=== PATIENT | male | born 1950 | race Caucasian/White ===

== ENCOUNTER → 2020-12-04 12:13 | Outpatient (CLI) | payer MEDICARE, SELFPAY ==
--- NOTE | 2020-12-04 13:21 | DI.MRI.S_ITS ---
PROCEDURE: MR LUMBAR SPINE WO CON INDICATIONS: Low back pain, unspecified TECHNIQUE: Noncontrast sagittal T1 spin echo and T2 fast echo, sagittal STIR, axial T1 and T2 fast spin echo through the lumbar spine. In cases with scoliosis, additional coronal T2 fast spin echo may be performed. COMPARISON: None. FINDINGS: Image quality: Excellent. Alignment and Curvature: There is normal bony alignment. Bones: Postsurgical changes compatible with L3-L4 and L4-L5 discectomy interbody fusion noted. Postsurgical changes compatible with L4 laminectomy. Marrow is of normal overall signal. Chronic appearing L1 compression fracture noted which results in approximately 40% loss of normal anterior vertebral body height. No acute vertebral body compression fractures. Spinal Cord: Conus medullaris terminates at the L1 level. Visualized cord demonstrates normal signal and size. Paraspinous Soft Tissues: No paravertebral masses. T12-L1: Loss of disc signal. Mild bilateral facet hypertrophy. Mild narrowing of the central canal. Mild bilateral neural foraminal narrowing. No neural compression. Fissure noted in the left posterior annulus. L1-L2: Loss of disc signal. Mild, diffuse disc bulge. Mild bilateral facet hypertrophy. Mild narrowing of the central canal. Mild bilateral neural foraminal narrowing. No neural compression. L2-L3: Loss of disc signal. Mild bilateral facet hypertrophy. Mild narrowing of the central canal. Mild bilateral neural foraminal narrowing. No neural compression. L3-L4: Status post fusion. Moderate, diffuse posterior disc bulge. Mild bilateral facet hypertrophy. Mild to moderate narrowing of the central canal. Moderate bilateral neural foraminal narrowing. No neural compression. L4-L5: Status post fusion. Kxkc-nx-bsvoijlx bilateral facet hypertrophy. No central stenosis. Moderate bilateral neural foraminal narrowing. No neural compression. L5-S1: Loss of disc signal. Mild to moderate diffuse disc bulge. Mild right and iane-fc-cfnuhzav left facet hypertrophy. Mild narrowing of the central canal. Mild right and severe left neural foraminal narrowing with compression of the exiting left L5 nerve root. IMPRESSION: 1. Status post L3-L4 and L4-L5 fusion. Status post L4 laminectomy. 2. Multilevel degenerative disc disease. 3. Multilevel facet arthropathy. 4. No severe central canal narrowing. Five. Severe left L5-S1 neural foraminal narrowing with compression of the exiting left L5 nerve root. Please correlate with clinical data. Dictated by: Sasha Liu MD, PhD on 12/04/2020 at 14:59 Approved by: Sasha Liu MD, PhD on 12/04/2020 at 15:48
== END ==
PROVIDERS: PCP Family Medicine; Referring Provider Physical Medicine & Rehabilitation; Visit Provider Physical Medicine & Rehabilitation
DX: M54.50 Low back pain, unspecified (principal); Z98.1 Arthrodesis status; M51.36 Other intervertebral disc degeneration, lumbar region; M48.061 Spinal stenosis, lumbar region without neurogenic claudication; M51.35 Other intervertebral disc degeneration, thoracolumbar region; M48.05 Spinal stenosis, thoracolumbar region; M51.37 Other intervertebral disc degeneration, lumbosacral region; M48.07 Spinal stenosis, lumbosacral region; M47.816 Spondylosis without myelopathy or radiculopathy, lumbar region; M47.815 Spondylosis without myelopathy or radiculopathy, thoracolumbar region; M47.817 Spondylosis without myelopathy or radiculopathy, lumbosacral region
CPT/HCPCS: 72148

== ENCOUNTER → 2021-10-02 13:10 | Outpatient (CLI) | payer MEDICARE, SELFPAY ==
--- NOTE | 2021-10-02 13:13 | DI.CT.S_ITS ---
PROCEDURE: CT LUMBAR SPINE WO CON INDICATIONS: Spinal stenosis, lumbar region TECHNIQUE: Noncontrast 3 mm thick sections acquired from the T12 level to the sacrum. Sagittal and coronal reformats were constructed. For radiation dose reduction, the following was used: automated exposure control. COMPARISON: [facility], MR, MR LUMBAR SPINE WO CON, 12/04/2020, 12:39. FINDINGS: Image quality: Excellent. Bones: Postsurgical changes compatible with L3-L4 and L4-L5 fusion are stable compared to December 04, 2020. There is normal bony alignment. Chronic appearing L1 compression fracture is stable compared to December 04, 2020. No acute vertebral body compression fractures. No suspicious lytic or blastic bony lesions. No pars defects. T12-L1: Disc height is normal. Mild bilateral facet hypertrophy. Mild narrowing of the central canal. Mild bilateral neural foraminal narrowing. No neural compression. L1-L2: Disc height is normal. Mild, diffuse disc bulge. Mild bilateral facet hypertrophy. Mild narrowing of the central canal. Mild bilateral neural foraminal narrowing. No neural compression. L2-L3: Disc height is normal. Mild, diffuse disc bulge. Mild bilateral facet hypertrophy. Mild narrowing of the central canal. Mild bilateral neural foraminal narrowing. No neural compression. L3-L4: Status post fusion. Moderate, diffuse disc bulge. Ceut-pu-adjkiqfl bilateral facet hypertrophy. Mild to moderate narrowing of the central canal. Moderate bilateral neural foraminal narrowing. No neural compression. L4-L5: Status post fusion. Burs-br-dtpbmvxv bilateral facet hypertrophy. No central stenosis. Moderate bilateral neural foraminal narrowing. No neural compression. L5-S1: Disc height is normal. Mild to moderate diffuse disc bulge. Hgzl-ao-iurbqwuk bilateral facet hypertrophy. Mild narrowing of the central canal. Mild right and severe left neural foraminal narrowing with compression of the exiting left L5 nerve root. Soft tissues: No retroperitoneal masses or hematomas. Visualized aorta is normal in caliber. Incidental note made of calcified gallstones in the visualized gallbladder. Colon anastomotic sutures identified at the rectosigmoid junction. IMPRESSION: 1. No significant change compared to December 04, 2020. 2. L3-L4 and L4-L5 fusion. 3. Multilevel degenerative disc disease. 4. Multilevel facet arthropathy. 5. No severe central canal narrowing. 6. Severe left L5-S1 neural foraminal narrowing with compression of the exiting left L5 nerve root. Dictated by: Sasha Liu MD, PhD on 10/03/2021 at 10:08 Approved by: Sasha Liu MD, PhD on 10/03/2021 at 10:14
== END ==
PROVIDERS: PCP Family Medicine; Referring Provider Orthopaedic Surgery Orthopaedic Surgery of the Spine; Visit Provider Orthopaedic Surgery Orthopaedic Surgery of the Spine
DX: M48.061 Spinal stenosis, lumbar region without neurogenic claudication (principal); M48.07 Spinal stenosis, lumbosacral region; M51.36 Other intervertebral disc degeneration, lumbar region; M51.37 Other intervertebral disc degeneration, lumbosacral region; M47.816 Spondylosis without myelopathy or radiculopathy, lumbar region; M47.817 Spondylosis without myelopathy or radiculopathy, lumbosacral region; Z98.1 Arthrodesis status
CPT/HCPCS: 72131

== ENCOUNTER → 2021-10-15 10:48 | Outpatient (CLI) | payer MEDICARE, SELFPAY ==
[2021-10-15 11:32] LABS: COVID19 -Nasal RAPID Negative (Negative)
== END ==
PROVIDERS: PCP Family Medicine; Referring Provider Orthopaedic Surgery Orthopaedic Surgery of the Spine; Visit Provider Orthopaedic Surgery Orthopaedic Surgery of the Spine
DX: Z20.822 Contact with and (suspected) exposure to COVID-19 (principal)
CPT/HCPCS: 87635; C9803

== ENCOUNTER 2021-10-18 13:37 | Observation (INO) | payer MEDICARE, SELFPAY ==
[2021-10-10 09:37] VITALS: BMI 25.0
[2021-10-17] VITALS (17 sets, daily range): BP systolic 107–158; BP diastolic 59–91; PULSE 56–96; RESP 12–20; TEMP 36.1–37; O2SAT 94–100; BMI 25.0
--- NOTE | 2021-10-17 | DI.RAD.S_ITS ---
PROCEDURE: XR LUMBAR SPINE 2-3V INDICATIONS: L5-S1 POSTERIOR FUSION TECHNIQUE: 2 intraoperative fluoroscopic views of the lumbar spine were acquired. COMPARISON: None. FINDINGS: Bones: 2 intraoperative views demonstrate posterior fixation and discectomy at L5-S1. IMPRESSION: Posterior fixation and discectomy at L5-S1. Dictated by: Puja Taylor M.D. on 10/17/2021 at 16:31 Approved by: Puja Taylor M.D. on 10/17/2021 at 16:31
[2021-10-17] MEDS: LACTATED RINGERS 1,000 ML 100 ML IV ×2 (11:45→16:09)
--- NOTE | 2021-10-17 12:14 | PM.PREOP ---
Pre-operative Note COVID-19 COVID-19 status: Negative Result date/Date tested (Pos, Neg/Pending): 10/16/21 Criteria for continued procedure: Expected advancement of disease process, Possibility delay results in more complex future surgery or treatment, Increased loss of function, Continuing or worsening of significant or severe pain, Deterioration of the patient's condition or overall health and Delay expected to result in less-positive ultimate med/surg outcome Interval Note History & Physical reviewed/Exam performed by Physician: Yes Changes to H&P: No
[2021-10-17] MEDS: ACETAMINOPHEN IV 1,000 MG/100 ML VIAL 400 MG IV (13:30)
[2021-10-17] MEDS: CEFAZOLIN 2 GM/100 ML PREMIX 100 ML IV ×2 (13:30→22:00)
--- NOTE | 2021-10-17 13:55 | SUR.OPER ---
Prone on spine table, head in foam head support, padded chest and pelvic supports, gel pad at knees, lower legs supported by pillows; nipples, genitalia and toes free of pressure, arms secured on foam padded arm boards at <90 degrees abduction. Tape over blanket at thigh secured to table. POSITION APPROVED BY SURGEON AND ANESTHESIA.
[2021-10-17] MEDS: BUPIVACAINE 0.25% (PF) 30 ML, EPINEPHrine 0.3 MG INJ (16:00)
[2021-10-17] MEDS: BUPIVACAINE LIPOSOME 266 MG/20 ML VIAL INJ (16:00)
--- NOTE | 2021-10-17 16:06 | PM.OP.1 ---
Operative Date/Time/Diagnoses Date of procedure: 10/17/21 Time of procedure: 13:30 Pre-op diagnosis: 1. L5-S1 spinal stenosis with radiculopathy 2. L5-S1 spondylosis with radiculopathy Post-op diagnosis: same Procedure & Clinicians Procedure: 1. L5-S1 Postero-lateral and posterior interbody fusion 2. L5-S1 interbody cage placement. 3. L5-S1 decompressive laminectomy with bilateral facetecomies 4. L5-S1 Posterior non-segmental instrumentation 5. [place] of bone marrow from iliac crest 6. Utilization of microsurgical technique and operating microscope 7. Utilization of robotic assisted navigation Same procedure as scheduled: Yes Indications: Patient has been having chronic back pain and worsening lumbar radiculopathy on the left side with weakness numbness and pain. Patient has a history of L3-4 L4-5 anterior fusion with progressively worsening lower back pain at the lumbar sacral junction as well as progressively worsening left-sided radiculopathy. Patient failed multiple conservative management with worsening pain weakness and numbness in his lower extremity. Patient has been having difficulty performing activity of daily living. After discussing risks benefits of treatment options, patient elected proceed with surgery. Surgeon: Eli Victoria Armed Guard: Jojo Rivers Click Yes if Unassisted: No Anesthesia Type: General Operative Notes Closure Type: primary Specimen(s): none sent Prosthetic devices, grafts, tissues, transplants, or devices: Globus CREO MIS screws, Rise cage Estimated Blood Loss (mL): 50 Blood products transfused: none Procedure in detail: Patient was seen in the preoperative area. Risks and benefits of the surgery was discussed with the patient. Informed consent was obtained from the patient and placed in the chart. Surgical site was marked. Patient was taken to the operative room. General anesthesia was administered. Prophylactic antibiotic was given to the patient less than 30 min before the incision was made. Patient was placed into a prone position on the Faraz table. Patient's back was then prepped and draped in the sterile fashion. Time-out was performed at this time. After patient was prepped and draped, patient's PSIS was palpated and marked bilaterally. Small 1 cm incision was made over the PSIS for placement of the reference probes. Two trocar was placed into the PSIS 1 on each side. The reference probe was attached to the trocar of the reference apparatus. At this time the C-arm imaging was used to confirm AP and lateral of L5-S1 vertebrae and merged the C-arm imaging using the [employer] robotic navigation system with the CT of the lumbar spine. After successful merging was completed and confirmed, skin marker was used to ramón out the skin incision using the [employer] robotic arm. Bilateral incision was made at this time. Pre templated trajectory was used and guided using the [employer] robotic navigation system for bilateral L5-S1 pedicle screw placement. This was done by using the robotic arm to guide the high-speed bur to make a cortical entry point. Next a drill was placed also using the robotic arm and guided using the navigation system drilling partially through bilateral L5, S1 pedicles. Next L5-S1 pedicle screws it was pre templated and measured was placed onto the power transport truck driver and inserted into the pedicles bilaterally. After all 4 screws were placed C-arm imaging was taken of both AP and lateral to confirm the placement. Excellent placement of the screws were confirmed and a matched precisely with the pre planned screw placement using the navigation system. MARs retractor was inserted using [employer] guidence. Globus MARS retractors was placed inside the incision and docked onto the L5 lamina. Using microsurgical technique and operating microscope, a L5 laminectomy and L5-S1 facetectomy was performed using a [place] rongeur. Patient was found have severe lateral recess and neural foramen stenosis which was fully decompressed after the laminectomy facetectomy. More than 75% of the facets were removed during the process of decompression rendering L5-S1 level grossly unstable and required a fusion procedure at the same time. The disc space at L5-S1 was identified, and a total diskectomy was performed at L5-S1 level. The endplates were decorticated using a rasp and shaver. The total diskectomy and decortication was performed at L5-S1 level in order to to accomplish a L5-S1 fusion. The local bone from the laminectomy and facetectomy was saved for local bone grafting. After the total diskectomy and decortication was completed, Trifecta bone graft material was combined with local bone that was harvested earlier. At this time, a separate skin is incision was made over the iliac crest. A Jamshidi needle was inserted into the iliac crest through a separate skin incision. 5 cc of bone marrow aspiration was obtained through the separate skin incision using a Jamshidi needle from the iliac crest. The bone marrow aspiration was combined with local bone and the Trifecta bone grafting material. The bone grafting material was placed into the L5-S1 interbody space along with a expandable cage. The cage was expanded to its maximum height using the torque limiting screwdriver. The disc preparation as well as the cage insertion were also performed under navigation guidance. After the cage was placed, AP and lateral C-arm imaging was taken to confirm placement of the cage and excellent position was confirmed. Globus MARS retractor was inserted and docked onto the L5-S1 posterolateral gutter on the right side. Using the power drill, posterior-lateral decortication was performed at L5-S1 level until bleeding cortical bone was identified. The remaining bone grafting material was placed into the L5-S1 posterior lateral gutter he order to accomplish posterolateral fusion at the L5-S1 level. At this time the tulips were attached to the L5-S1 pedicle screw shanks. After measuring the length of the rods, they were inserted into the tulips of the pedicle screws and locked in place using locking caps and torque limiting screwdriver bilaterally. Total 4 caps and 2 titanium rods was used in order to complete the posterior instrumentation construct. After all the hardware was placed, and confirmed with AP and lateral C-arm imaging, the wound was then irrigated with sterile normal saline and packed with Ray-Moses gauze for 3 min to accomplish hemostasis. After the gauze was removed the deep fascia was closed with #1 Vicryl suture. The subcutaneous layer was closed with 2-0 Vicryl. The skin was closed with skin verónica. Patient tolerated the procedure well. There were no complications. Neuro monitoring system was used to monitor patient's neurologic status throughout entire procedure. There was no disturbance of the neural monitoring signals throughout the case. Complications: none Post-operative Condition: stable Disposition: PACU Plan for aftercare: Admit to inpatient hospital
[2021-10-17] MEDS: HYDROMORPHONE 2 MG INJ IV ×4 (16:24→16:50)
[2021-10-17] MEDS: hydrOXYzine 50 MG/ML INJ IM (16:27)
[2021-10-17] MEDS: OXYCODONE IR 5 MG TABLET 10 MG PO ×2 (16:33→22:09)
[2021-10-17] MEDS: ONDANSETRON 4 MG/2 ML INJ IV (16:33)
--- NOTE | 2021-10-17 17:32 | PC.NURSE ---
Day shift: Pt in room from PACU at approx 1725. He is A&Ox4. CMS intact. Dressing (op-site) is CDI. VS WNL. RA 99%. Spouse in room for support. Reports pain 09/07. Oriented to room and call light. Tolerating SCD's. Will continue w/ post-op plan of care.
--- NOTE | 2021-10-17 18:13 | PC.NURSE ---
Day shift: Pt unable to void. Bladder scanned with approx 600mls per the scan. Pt asked if he would like a Rae placed at this time and he does not want a Rae placed at this time. Will continue to monitor this.
[2021-10-17] MEDS: SODIUM CHLORIDE 0.9% 1,000 ML 100 ML IV (18:21)
[2021-10-17] MEDS: HYDROMORPHONE 0.5 MG INJ IV (20:32)
[2021-10-17] MEDS: DOCUSATE 100 MG CAPSULE PO (21:59)
[2021-10-17] MEDS: SENNOSIDES 8.6 MG TABLET 17.2 MG PO (21:59)
[2021-10-17] MEDS: ACETAMINOPHEN 325 MG TABLET 650 MG PO (22:12)
[2021-10-17] MEDS: LIDOCAINE 2% (GLYDO) 6 ML GEL TOP (22:50)
[2021-10-18] MEDS: OXYCODONE/ACETAMINOPHEN 5/325 TABLET 1 TAB PO ×3 (01:45→21:16)
--- NOTE | 2021-10-18 02:14 | PC.NURSE ---
Addendum entered by Katia Castro R.N. 10/18/21 02:19: Patient unable to void, bladder scan result 700cc, patient agreeable to fried. Fried placed, 1100cc out. Original Note: Patient self-transferred to the bathroom, found by staff and educated on importance of calling for help to avoid injury.
[2021-10-18] MEDS: HYDROMORPHONE 0.5 MG INJ IV ×2 (04:21→07:04)
[2021-10-18] MEDS: SODIUM CHLORIDE 0.9% 1,000 ML 100 ML IV ×2 (04:22→18:27)
[2021-10-18 05:30] VITALS: BP 82/52; PULSE 83; RESP 17; O2SAT 93
[2021-10-18 05:43] VITALS: BP 85/47
[2021-10-18] MEDS: LEVOTHYROXINE 112 MCG TABLET PO (05:59)
[2021-10-18] MEDS: CEFAZOLIN 2 GM/100 ML PREMIX 100 ML IV (05:59)
[2021-10-18] MEDS: SODIUM CHLORIDE 0.9% 500 ML 1000 ML IV (06:33)
[2021-10-18] MEDS: OXYCODONE IR 5 MG TABLET 10 MG PO ×5 (07:43→23:10)
[2021-10-18] MEDS: hydrOXYzine pamoate 25 MG CAPSULE PO ×4 (07:43→23:11)
[2021-10-18 07:45] VITALS: BP 123/79; PULSE 75; RESP 16; TEMP 36.6; O2SAT 98
--- NOTE | 2021-10-18 08:48 | PM.PNPO.1 ---
Subjective Subjective Date Patient Seen: 10/18/21 Time Patient Seen: 08:48 Interval history: Pt sitting up in bed, eating breakfast. C/o pain in back, penis, and pelvis. He was suffering from urinary retention and had a fried catheter place last night; per RN, took 3 attempts. Per pt, h/o BPH and terazosin; he does not want to take terazosin again because 'it makes me swell.' He does not have a urologist. He did receive a fluid bolus last night d/t low BP. Has not been OOB since surgery. Exam Vital Signs (past 8 hours): - 10/18/21 05:30 10/18/21 05:43 10/18/21 07:45 Temperature 97.9 F Pulse Rate 83 75 Respiratory Rate 17 16 Blood Pressure 82/52 L 85/47 L 123/79 Pulse Oximetry 93 98 Oxygen Flow Rate 0 Oxygen Delivery Method Room Air Oxygen Flow Rate 0 Narrative Exam Narrative: 5/5 strength in hip flexors, quadriceps, hamstrings, DF, PF, EHL bilaterally. Sensation to light touch intact in BLE. Calves soft, compressible, nontender and without palpable cords or masses. Low back dressing placed intraoperatively has some bloody drainage on left side, otherwise intact. [facility] Medical History (Updated 10/18/21 @ 08:53 by Jojo Rivers PA-C) Anxiety BPH (benign prostatic hyperplasia) CAD (coronary artery disease) Colon cancer (2017) Depression Hearing impaired HLD (hyperlipidemia) HTN (hypertension) Hx of tongue cancer (2019) Hypothyroidism Kidney stone (~10/10/21) Kidney stones Lung cancer (2019) Lymph node cancer (2019) Neuropathy MARVIN (obstructive sleep apnea) Spinal stenosis Surgical History (Updated 10/18/21 @ 08:53 by Jojo Rivers PA-C) H/O vasectomy History of colon resection (2018) History of lobectomy of lung (2019) History of lumbar spinal fusion Hx of appendectomy (2016) Hx of laminectomy (2007) Hx of laminectomy Hx of laminectomy Hx of lithotripsy Hx of tonsillectomy S/P CABG x 5 (2006) Social History household members: significant other Smoking Status: Never smoker alcohol intake: former Assessment & Plan Post-op Assessment and plan (1) S/P lumbar fusion: Assessment and Plan narrative: PT today, plan for discharge in next 1-2 days with disposition per their recommendation. (2) Acute on chronic urinary retention: Assessment and Plan narrative: Continue fried cathter today. Will discuss discontinuing catheter and restarting terazosin with pt prior to discharge. Other option would be discharging with catheter and outpt referral to urology. (3) Hypotension: Assessment and Plan narrative: Will order second fluid bolus and continue IVF throughout today. Postoperative Procedures: Procedures Operation Date: 10/17/21 12:45 Actual Procedure Side Surgeon p L5-S1 TLIF -robot Eli Victoria MD Postoperative day: 1 Quality VTE Deep Vein Thrombosis/Pulmonary Embolism Present on Admission: No
--- NOTE | 2021-10-18 09:15 | OT.IP.EVAL ---
Current Diagnoses Hypotension, unspecified (10/17/21) Spinal stenosis, lumbar region without neurogenic claudication (10/17/21) Retention of urine, unspecified (10/17/21) Arthrodesis status (10/17/21) Surgery Performed Operation Date: 10/17/21 12:45 Actual Procedures p L5-S1 TLIF -[place] - Eli Victoria MD Past Medical History (Last Updated 10/10/21 @ 10:27 by Rosita Fernández, RN) Anxiety BPH (benign prostatic hyperplasia) CAD (coronary artery disease) Colon cancer (2017) Depression Hearing impaired HLD (hyperlipidemia) HTN (hypertension) Hx of tongue cancer (2019) Hypothyroidism Kidney stone (~10/10/21) Kidney stones Lung cancer (2018) Lymph node cancer (2019) Neuropathy MRAVIN (obstructive sleep apnea) Spinal stenosis Surgical History (Last Updated 10/10/21 @ 10:27 by Rosita Fernández RN) H/O vasectomy History of colon resection (2017) History of lobectomy of lung (2018) History of lumbar spinal fusion Hx of appendectomy (2016) Hx of laminectomy (2007) Hx of laminectomy Hx of laminectomy Hx of lithotripsy Hx of tonsillectomy S/P CABG x 5 (2006) Occupational Therapy Inpatient Evaluation/Re-Eval M1 PT/OT-IP Prior Functional Status Start: 10/18/21 10:27 Freq: NEEDED Status: Active Protocol: Document 10/18/21 09:15 [facility] (Rec: 10/18/21 10:46 [facility] [id number]) Medical Review Prior Functional Status Communication independent Mobility and Gait Pt states walked without a device and able to walk 1 mile however with stooped posture and pain. Activities of Daily Living and IADL's Increased time and pain with ADL and IADL needs. Social History Household Members significant other Living Arrangements 5th wheel Number of Floors (Floors) One Floor Number of Stairs To Enter/Railing? 4 steps with left rail. Home Environment High Toilet,Tub/Shower Home Equipment Grab Bars In Shower Additional Social History Comment Pt states his brother in law has a lot of equipment that he can borrow. M2 OT-IP Current Condition Start: 10/18/21 10:27 Freq: Status: Active Protocol: Document 10/18/21 09:15 [facility] (Rec: 10/18/21 10:46 [facility] [id number]) Occupational Therapy Current Condition Current Condition Evaluation Date 10/18/21 Treatment Diagnosis S/p L5-S1 TLIF Diagnosis Onset Date 10/17/21 Post Operative Precautions Lumbar Precautions Log Roll,No Twisting,Limit Bending,Lifting Restriction of 10 lbs,Gait Belt above Incisional Area M3 OT- IP Subjective and Pain Start: 10/18/21 10:27 Freq: Status: Active Protocol: Document 10/18/21 09:15 [facility] (Rec: 10/18/21 10:46 [facility] [id number]) OT- Subjective Occupational Therapy Visit Type Type Initial Evaluation Visit Start Time 08:33 Visit Stop Time 09:15 Total Visit Minutes 43 Occupational Therapy Visit Comments Patient Comments Pt agreed to get up for OT eval. Patient/Caregiver Goals TO go home OT Pain Assessment Pain When Pain Assessed At Rest Pain Present Pain Present Pain Reported Location Lower Back Intensity 5 Scale Used Numeric (0 - 10) M4 OT- IP ADL's Start: 10/18/21 10:27 Freq: Status: Active Protocol: Document 10/18/21 09:15 [facility] (Rec: 10/18/21 10:46 [facility] [id number]) OT HJP-Xfwf-Gralsns Comments OT Self-Feeding Comments NOt at meal time, no issued anticipated. OT ADL-Grooming General Evaluation Grooming Ability Independent Areas Needing Assistance Retrieving/Set-up of Grooming Items Comments OT Grooming Comments while seated OT ADL-Oral Care General Eval Oral Care Ability Independent Areas of Assistance Retrieving/Set-Up of Items Comments Oral Care Comments Pt seated for oral care due to low BP. Educated if standing for oral care needs best to just hinge at his hips or spit in to a cup to best follow his back precautions. OT ADL-Dressing General Eval Lower Body Dressing Ability Moderate Assistance Areas Needing Assistance Socks Comments OT Dressing Comments Pt able to doff his socks comfortably while seated, but unable to don his socks. Able to show and have pt practice use of sock aid and tool grinding technician. OT ADL-Toileting General Evaluation Toileting Ability Total Assistance Comments OT Toileting Comments Rae in place. Suggested pt use urinal at night. OT ADL-Bathing Comments OT Bathing Comments Not performed due to low BP. Pt will benefit from assist and a shower chair at home to use. In addition hand held shower spray will be beneficial for the pt to use. M5 OT- IP IADL's Start: 10/18/21 10:27 Freq: Status: Active Protocol: Document 10/18/21 09:15 [facility] (Rec: 10/18/21 10:46 [facility] [id number]) OT-Instrumental Activities of Daily Living Home Safety Awareness Ability to Problem Solve Emergency Able to Problem Solve Situations Medication Management Medication Management Comments Pt's S.O to be there to assist with his needs. M6 OT- IP Functional Cognition Start: 10/18/21 10:27 Freq: Status: Active Protocol: Document 10/18/21 09:15 [facility] (Rec: 10/18/21 10:46 [facility] [id number]) Cognitive Factors Limiting Selfcare Function Cognitive Ability Level of Alertness Alert Patient Orientation Name,Age,Birthday,Month,Date, Year,Day of Week,Place, Situation Attention Span Ability Capable of Focused Attention, Capable of Sustained Attention Ability to Follow Commands Able to Follow One Step Commands Cognitive Comments Cognitive Assessment Comments Pt able to recall and follow back precautions appropriately after educations for mobility and ADL needs. OT- Vision and Hearing OT- Hearing Assessment OT- Hearing Assessment WFL OT- Vision Assessment Visual Acuity Glasses All The Time M7 OT- IP Mobility and Balance Start: 10/18/21 10:27 Freq: Status: Active Protocol: Document 10/18/21 09:15 [facility] (Rec: 10/18/21 10:46 [facility] [id number]) OT- Bed Mobility Assessment Supine to Sit Supine to Sit Assist Contact Guard Assistance OT-Transfer Assessment Sit to and From Stand Sit to and from Stand Minimal Assistance Transfers Transfer Ability Minimal Assistance Technique Transfer Destination Bed,Chair Transfer Technique Stand Step Pivot Devices Transfer Assistive Devices Gait Belt,Front Wheeled Walker Comments Mobility Comments MITZI to help get pt's trunk upright from the bed. BP supine 133/71, sitting 109/70, and after standing 84/67 and after sitting down again 101/ 65, pt states feeling dizzy. Pt needing MITZI to stand and vc to stand all the way up and push off from surfaces with his BUE. Pt able to walk partially around the bed with CGA after up on his feet with FWW. Nursing notified of low BP. OT- Balance Assessment Sitting Balance and Reactions Static Sitting Balance Ability Normal Dynamic Sitting Balance Ability Good Standing Balance and Reactions Static Standing Balance Ability Good Dynamic Standing Balance Ability Fair M8 OT- IP Objective Assessments Start: 10/18/21 10:27 Freq: Status: Active Protocol: Document 10/18/21 09:15 [facility] (Rec: 10/18/21 10:46 [facility] [id number]) OT-Muscle Tone Assessment Muscle Tone WNL Yes M9 OT- IP Assessment and Plan Start: 10/18/21 10:27 Freq: Status: Active Protocol: Document 10/18/21 09:15 [facility] (Rec: 10/18/21 10:46 [facility] [id number]) OT Summary Assessment and Plan Potential Rehabilitation Potential Excellent Analytic Complexity at Evaluation Low Summary OT Impairments Pain,Balance,Functional Mobility,Grooming,Dressing, Toileting,Bathing,Toilet Transfers,Shower Transfers Progress Towards Goals Slow Progress due to Medical Issues Assessment Summary Pt low complexity and main barriers are steps and having orthostatic reading when getting up. Pt at this time just needing minimal assist for ADL and mobility needs. Pt when medically stable to go home with his S.O. Pt states his brother in law has FWW that he can use in addition to other equipment. Goals Self-Feeding Goal Independent Grooming Goal Independent Dressing Goal Independent Toileting Goal Independent Bathing Goal Independent Toilet Transfer Goal Independent Shower Transfer Goal Independent Patient/Caregiver Education Goal Caregiver Independent Assisting Patient Days to Meet Goals 7 Frequency of Treatment Frequency Of Treatment Once a Day Treatment Plan OT Treatment Plan ADL Training,Functional Mobility,Patient/Family Education,Discharge Planning Other Treatment Recommendations and Next shower Treatment Focus Discharge Recommendations OT Discharge Recommendations Home with Assistance Transportation Needs at Discharge Private Vehicle
--- NOTE | 2021-10-18 09:24 | PT.IIE ---
Addendum entered and electronically signed by Rivka Kay PT 10/18/21 13:05: Pt's status of condition changed from stable to evolving due to low BP. Discussed with PT student. This is to certify that I have reviewed and in direct supervision to this pt's care. Original Note: Current Diagnoses Hypotension, unspecified (10/17/21) Spinal stenosis, lumbar region without neurogenic claudication (10/17/21) Retention of urine, unspecified (10/17/21) Arthrodesis status (10/17/21) Surgery Performed Operation Date: 10/17/21 12:45 Actual Procedures p L5-S1 TLIF -robot - Eli Victoria MD Surgical History (Last Updated 10/10/21 @ 10:27 by Rosita Fernández RN) H/O vasectomy History of colon resection (2017) History of lobectomy of lung (2018) History of lumbar spinal fusion Hx of appendectomy (2016) Hx of laminectomy (2007) Hx of laminectomy Hx of laminectomy Hx of lithotripsy Hx of tonsillectomy S/P CABG x 5 (2006) Medical History (Last Updated 10/10/21 @ 10:27 by Rosita Fernández RN) Anxiety BPH (benign prostatic hyperplasia) CAD (coronary artery disease) Colon cancer (2017) Depression Hearing impaired HLD (hyperlipidemia) HTN (hypertension) Hx of tongue cancer (2018) Hypothyroidism Kidney stone (~10/10/21) Kidney stones Lung cancer (2019) Lymph node cancer (2019) Neuropathy MARVIN (obstructive sleep apnea) Spinal stenosis Physical Therapy Inpatient Evaluation/Re-Eval M1 PT/OT-IP Prior Functional Status Start: 10/18/21 10:27 Freq: NEEDED Status: Active Protocol: Document 10/18/21 09:24 (Rec: 10/18/21 12:04 [id number]) Medical Review Prior Functional Status Medical History Reviewed Yes Communication able to make needs known. Mobility and Gait pt states that he was independent with all mobilities and ambulation without use of an AD prior to surgery. Social History Household Members significant other Living Arrangements House Number of Floors (Floors) One Floor Number of Stairs To Enter/Railing? 4 steps Left rail ascending to enter. Home Environment High Toilet,Tub/Shower Home Equipment Front Wheel Walker,Straight Cane,Hand Held Shower,Grab Bars Near Toilet,Grab Bars In Shower Additional Social History Comment Pt states he also has walking sticks. M1 PT/OT-IP Prior Functional Status Start: 10/18/21 11:00 Freq: NEEDED Status: Active Protocol: Document 10/18/21 09:24 (Rec: 10/18/21 12:04 [id number]) Medical Review Prior Functional Status Medical History Reviewed Yes Communication able to make needs known. Mobility and Gait pt states that he was independent with all mobilities and ambulation without use of an AD prior to surgery. Social History Household Members significant other Living Arrangements House Number of Floors (Floors) One Floor Number of Stairs To Enter/Railing? 4 steps Left rail ascending to enter. Home Environment High Toilet,Tub/Shower Home Equipment Front Wheel Walker,Straight Cane,Hand Held Shower,Grab Bars Near Toilet,Grab Bars In Shower Additional Social History Comment Pt states he also has walking sticks. M2 PT-IP Current Condition Start: 10/18/21 11:00 Freq: NEEDED Status: Active Protocol: Document 10/18/21 09:24 (Rec: 10/18/21 12:04 [id number]) Physical Therapy Current Condition Current Condition Evaluation Date 10/18/21 Treatment Diagnosis s/p L5-S1 TLIF; difficulty walking Onset Date 10/17/2021 M3 PT-IP Subjective Start: 10/18/21 11:00 Freq: NEEDED Status: Active Protocol: Document 10/18/21 09:24 (Rec: 10/18/21 12:04 [id number]) Subjective Physical Therapy Visit Type Type Initial Evaluation Visit Start Time 09:24 Visit Stop Time 09:51 Total Visit Minutes 27 Number of MISSILE INSPECTOR PREFLIGHT Visits 0 Physical Therapy Visit Comments Patient Comments pt agreeable to do PT M4 PT-IP Mobility and Gait Start: 10/18/21 11:00 Freq: NEEDED Status: Active Protocol: Document 10/18/21 09:24 (Rec: 10/18/21 12:04 [id number]) PT-Bed Mobility Assessment Rolling Type of Rolling Log Rolling,Roll to Left Level of Assist Standby Assistance Sit to Supine Sit to Supine Standby Assistance PT-Transfer Assessment Sit to and From Stand Sit to and from Stand Contact Guard Assistance,1 Person Assistance Equipment Transfer Assistive Device Gait Belt,Front Wheeled Walker Orthotic/Prosthetic Devices or Brace: No Transfers Transfer Destination Bed Transfer Technique Stand Step Pivot Transfer Ability Level of Assist Contact Guard Assistance, Minimal Assistance Comments Mobility Comments Pt sitting in chair, BP in sittin/53. pt does not c/ o dizziness or nausea. Educated pt regarding pt's back precautions and pt understood. Intructed pt to slow down and wait for instruction to stand. pt completed sit to stand CGA, min cues with FWW. pt c/o slight dizziness, BP in standin/53. Pt c/o of increased dizziness, completed stand to sit CGA, min cues with FWW. BP in sittin/47 . pt agreed to transfer to bed . completed sit to stand CGA, no cues with FWW. pt completed stand step pivot transfer to bed CGA to min A, min cues with FWW. completed sit to supine and log roll to left side back into bed SBA, min cues. BP in supine: 100/57. positioned pt in bed, call light and table placed within reach. PT-Balance Assessment Sitting Balance and Reactions Static Sitting Balance Ability Good Dynamic Sitting Balance Ability Good Standing Balance and Reactions Static Standing Balance Ability Fair Dynamic Standing Balance Ability Fair Device Used FWW M5 PT-IP Objective Assessments Start: 10/18/21 11:00 Freq: NEEDED Status: Active Protocol: Document 10/18/21 09:24 (Rec: 10/18/21 12:04 [id number]) Orientation Orientation/Cognition Level of Alertness Alert Orientation Name,Place,Situation Language Function Ability No Deficits Noted Safety Awareness Decreased Safety Awareness Memory Description No Deficits Noted Gross Range of Motion Lower Extremity ROM Assessment Within Functional Limits Strength Lower Extremity Strength Assessment Bilaterally Impaired Hip 4-/5 Knee 4-/5 Ankle 4/5 Muscle Tone Muscle Tone WNL Yes M6 PT-IP Treatment Start: 10/18/21 11:00 Freq: NEEDED Status: Active Protocol: Document 10/18/21 09:24 (Rec: 10/18/21 12:04 [id number]) Physical Therapy Treatment Education Education Provided Precautions,Post-Op Packet, Safety M7 PT-IP Assessment and Plan Start: 10/18/21 11:00 Freq: NEEDED Status: Active Protocol: Document 10/18/21 09:24 (Rec: 10/18/21 12:04 [id number]) PT Summary Assessment and Plan Potential Rehabilitation Potential Good Status of Condition at Evaluation Stable Summary Impairments Pain,ROM,Strength,Balance, Coordination,Bed Mobility, Transfers,Gait,Activity Tolerance Progress Towards Goals Slow Progress due to Pain,Slow Progress due to Activity Tolerance Assessment Summary pt is s/p L5-S1 TLIF and had surgery yesterday afternoon. pt requiring SBA for bed mobilty and CGA to Min A for transfers at this time. decreased activity tolerance due to dizziness and drop in BP affecting mobility. At this time, pt will need 24/7 assist at home and states that is able to provide 24/7 assistance as needed. Caregiver training and stair climbing education still needed. d/c plan depends on progress and will continue to be assessed. Goals Bed Mobility Goal Independent Transfer Goal Independent,Front Wheeled Walker Gait Goal Independent,Front Wheel Walker Gait Distance 200 Other Goals pt will be able to ascend and descend 4 steps L rail independently. pt will be able to ambulate 400ft independently with FWW. Days to Meet Goals 5 Frequency of Treatment Frequency Of Treatment Twice a Day Treatment Plan Physical Therapy Treatment Plan Bed Mobility Training,Transfer Training,Gait Training, Therapeutic Exercise,Balance Retraining,Post Op Education, Discharge Planning,Hot or Cold Pack,Neuromuscular Re-ed, Coordination Retraining,Manual Therapy Precautions Lumbar Precautions Log Roll,No Twisting,Limit Bending,Lifting Restriction of 10 lbs,Gait Belt above Incisional Area Recommendations To Nursing Amount of Assist Needed 1 Person Assist Discharge Recommendations PT Discharge Recommendations Home with Assistance,Home with 24/7 Assist Available,Home Health Transportation Needs at Discharge Private Vehicle
[2021-10-18] MEDS: DOCUSATE 100 MG CAPSULE PO ×2 (09:28→21:16)
[2021-10-18] MEDS: CITALOPRAM 10 MG TABLET 40 MG PO (09:29)
[2021-10-18] MEDS: SODIUM CHLORIDE 0.9% 1,000 ML 1000 ML IV (10:09)
[2021-10-18 11:37] VITALS: BP 114/64; PULSE 81; RESP 16; TEMP 36.7; O2SAT 97
--- NOTE | 2021-10-18 11:52 | CM.DANOTE ---
Initial DCP Assessment Note Pt is a 71 yo male, resident of [place], now POD#1 from L5-S1 TLIF by Dr Victoria PCP: Bobby Blake Payer: [facility] Reviewed chart, pt discussed in multidisciplinary rounds this morning. Therapy so far has cleared pt for return home w/family to assist and pt has planned for home. No DC order at this time No barriers identified at this time to patient's safe discharge home w/family to assist; close outpatient f/u recommended. CM team will plan to follow closely in case there are any DC needs or concerns that arise SUSY Garza Discharge Planning/Care Management CM Discharge Assessment Start: 10/18/21 11:44 Freq: Status: Active Protocol: Document 10/18/21 11:44 [facility] (Rec: 10/18/21 11:52 [email or web address] [id number]) Discharge Planning Assessment Assigned Prenatal Teacher SUSY Olmos DPOA/Assigned Designee Name sister Bonilla Contact Information [phone] Advance Directives? Yes Advance Directives on File No History Provided By Patient,Family Member Prior Living Arrangements House Household Members significant other Type of transporation used prior to Drives own vehicle admit Independent with ADL's Yes Is patient alert and oriented? Yes Barriers to Discharge No Comment Cleared by therapy for return home and patient eager to do so Discharge Plan Home Transportation Arrangement spouse
--- NOTE | 2021-10-18 13:40 | PT.IPTN ---
Current Diagnoses Hypotension, unspecified (10/17/21) Spinal stenosis, lumbar region without neurogenic claudication (10/17/21) Retention of urine, unspecified (10/17/21) Arthrodesis status (10/17/21) Surgery Performed Operation Date: 10/17/21 12:45 Actual Procedures p L5-S1 TLIF -quinton Victoria MD Physical Therapy Treatment Note M2 PT-IP Current Condition Start: 10/18/21 11:00 Freq: NEEDED Status: Active Protocol: Document 10/18/21 09:24 (Rec: 10/18/21 12:04 [id number]) Physical Therapy Current Condition Current Condition Evaluation Date 10/18/21 Treatment Diagnosis s/p L5-S1 TLIF; difficulty walking Onset Date 10/17/2021 M3 PT-IP Subjective Start: 10/18/21 11:00 Freq: NEEDED Status: Active Protocol: Document 10/18/21 13:40 AB (Rec: 10/18/21 14:33 AB [id number]) Subjective Physical Therapy Visit Type Type Treatment Note Visit Start Time 13:40 Visit Stop Time 14:09 Total Visit Minutes 29 Number of TRAILER TANK TRUCK DRIVER Visits 0 Physical Therapy Visit Comments Patient Comments pt agreeable to do PT M4 PT-IP Mobility and Gait Start: 10/18/21 11:00 Freq: NEEDED Status: Active Protocol: Document 10/18/21 13:40 AB (Rec: 10/18/21 14:33 AB [id number]) PT-Bed Mobility Assessment Rolling Type of Rolling Log Rolling Level of Assist Maximal Assistance Supine to Sit Supine to Sit Maximum Assistance,1 Person Assistance,Bedrails PT-Transfer Assessment Sit to and From Stand Sit to and from Stand Minimal Assistance,1 Person Assistance,Use of Upper Extremities Equipment Transfer Assistive Device Gait Belt,Front Wheeled Walker Orthotic/Prosthetic Devices or Brace: No Transfers Transfer Destination Chair Transfer Technique ambulated Transfer Ability Level of Assist Contact Guard Assistance,1 Person Assistance,Use of Upper Extremities Comments Mobility Comments pt agreeable to do PT. able to recall back precautions. BP in supine: 114/69. completed bed mobility log roll supine to sit max A and max cues requiring 2 attempts to complete. c/o increase back pain: 8/10. BP in sittin /63. c/o lightheadedness but remains stable. able to tolerate ~ 2min of sitting and BP checked again: 107/69. completed sit to stand min A and cues. ambulated in room ~ 10 ft using W CGA and sat on the chair. BP checked: 89/ 48. pt agreed to sit up on chair and positioned with LE elevated. call light and table placed within reach. BP checked again: 103/61. informed nurse regarding decreas in BP. Gait Assessment Gait Gait Assistance Required: Contact Guard Assist Distance (Feet) 10 Able to Maintain Weight Bearing Status Yes During Gait Assistive Devices Assistive Device Gait Belt,Front Wheeled Walker Orthotic/Prosthetic Devices or Brace: No Gait Deviations General Gait Pattern Decreased Stride Length, Decreased Feet Clearance,Step- to Gait M5 PT-IP Objective Assessments Start: 10/18/21 11:00 Freq: NEEDED Status: Active Protocol: Document 10/18/21 09:24 (Rec: 10/18/21 12:04 [id number]) Orientation Orientation/Cognition Level of Alertness Alert Orientation Name,Place,Situation Language Function Ability No Deficits Noted Safety Awareness Decreased Safety Awareness Memory Description No Deficits Noted Gross Range of Motion Lower Extremity ROM Assessment Within Functional Limits Strength Lower Extremity Strength Assessment Bilaterally Impaired Hip 4-/5 Knee 4-/5 Ankle 4/5 Muscle Tone Muscle Tone WNL Yes M6 PT-IP Treatment Start: 10/18/21 11:00 Freq: NEEDED Status: Active Protocol: Document 10/18/21 13:40 (Rec: 10/18/21 14:33 [id number]) Physical Therapy Treatment Education Education Provided Precautions,Safety M7 PT-IP Assessment and Plan Start: 10/18/21 11:00 Freq: NEEDED Status: Active Protocol: Document 10/18/21 13:40 (Rec: 10/18/21 14:33 [id number]) PT Summary Assessment and Plan Potential Rehabilitation Potential Fair Summary Impairments Pain,ROM,Strength,Balance, Coordination,Sensation,Tone, Cognition,Bed Mobility, Transfers,Gait,Activity Tolerance Progress Towards Goals Slow Progress due to Pain,Slow Progress due to Activity Tolerance,Slow Progress - Other Assessment Summary pt continues to have decrease activity tolerance due to decrease in BP with c/o lightheadedness affecting mobility. pt plans to go home and has his significant other to asssit him if needed. Will continue to assess progress and when appropriate, conduct caregiver training and stair climbing training. Goals Bed Mobility Goal Independent Transfer Goal Independent,Front Wheeled Walker Gait Goal Independent,Front Wheel Walker Gait Distance 200 Other Goals pt will be able to ascend and descend 4 steps L rail independently. pt will be able to ambulate 400ft independently with FWW. Days to Meet Goals 5 Frequency of Treatment Frequency Of Treatment Twice a Day Treatment Plan Physical Therapy Treatment Plan Bed Mobility Training,Transfer Training,Gait Training, Therapeutic Exercise,Balance Retraining,Post Op Education, Discharge Planning,Hot or Cold Pack,Neuromuscular Re-ed, Coordination Retraining,Manual Therapy Precautions Lumbar Precautions Log Roll,No Twisting,Limit Bending,Lifting Restriction of 10 lbs,Gait Belt above Incisional Area Recommendations To Nursing Amount of Assist Needed 1 Person Assist Discharge Recommendations PT Discharge Recommendations Home with Assistance,Home with / Assist Available,Home Health Transportation Needs at Discharge Private Vehicle
[2021-10-18 18:15] VITALS: BP 115/65; PULSE 86; RESP 16; TEMP 37.5; O2SAT 94
[2021-10-18] MEDS: SENNOSIDES 8.6 MG TABLET 17.2 MG PO (21:16)
[2021-10-18 23:03] VITALS: BP 116/67; PULSE 75; RESP 14; TEMP 37.1; O2SAT 94
[2021-10-19] MEDS: OXYCODONE IR 5 MG TABLET 10 MG PO ×3 (02:53→14:09)
[2021-10-19] MEDS: SODIUM CHLORIDE 0.9% 1,000 ML 100 ML IV (02:54)
[2021-10-19] MEDS: hydrOXYzine pamoate 25 MG CAPSULE PO ×2 (05:13→10:16)
[2021-10-19 05:15] VITALS: BP 133/71; PULSE 76; RESP 14; TEMP 37; O2SAT 94
[2021-10-19] MEDS: LEVOTHYROXINE 112 MCG TABLET PO (06:18)
--- NOTE | 2021-10-19 07:40 | P.DS_ITS ---
History of Present Illness History of Present Illness Date Patient Seen: 10/19/21 Time Patient Seen: 07:40 Chief complaint: OPB Narrative: Operative Date/Time/Diagnoses Date of procedure: 10/17/21 Time of procedure: 13:30 Pre-op diagnosis: 1. L5-S1 spinal stenosis with radiculopathy 2. L5-S1 spondylosis with radiculopathy Post-op diagnosis: same Procedure & Clinicians Procedure: 1. L5-S1 Postero-lateral and posterior interbody fusion 2. L5-S1 interbody cage placement. 3. L5-S1 decompressive laminectomy with bilateral facetecomies 4. L5-S1 Posterior non-segmental instrumentation 5. Kimball of bone marrow from iliac crest 6. Utilization of microsurgical technique and operating microscope 7. Utilization of robotic assisted navigation Same procedure as scheduled: Yes Indications: Patient has been having chronic back pain and worsening lumbar radiculopathy on the left side with weakness numbness and pain. Patient has a history of L3-4 L4-5 anterior fusion with progressively worsening lower back pain at the lumbar sacral junction as well as progressively worsening left-sided radiculopathy. Patient failed multiple conservative management with worsening pain weakness and numbness in his lower extremity.? Patient has been having difficulty performing activity of daily living.? After discussing risks benefits of treatment options, patient elected proceed with surgery. Surgeon: Eli Victoria Video Software Engineer: Jojo Rivers Click Yes if Unassisted: No Anesthesia Type: General Operative Notes Closure Type: primary Specimen(s): none sent Prosthetic devices, grafts, tissues, transplants, or devices: Globus CREO MIS screws, Rise cage Estimated Blood Loss (mL): 50 Blood products transfused: none Discharge Providers Provider Discharge Date: 10/19/21 Primary care physician: Bobby Blake DO Consults: 10/17/21 17:18 Consult to Occupational Therapy Evaluate & Treat Comment: Physician Instructions: Evaluate and treat Consult to Physical Therapy Evaluate & Treat Comment: Physician Instructions: Evaluate and Treat Discharge provider: Jojo Rivers PA-C Summary Hospital Course Discharge Diagnosis: s/p lumbar fusion Hospital Course: Mr Poon's hospital course was complicated by urinary retention following surgery; this required placement of a urinary catheter. He has a h/o BPH and states he has taken terazosin in the past. He also had some episodes of hypotension that were corrected with IV fluid boluses. On POD# 2 he was feeling well and wanted to discharge home. He was evaluated by PT throughout his stay. His catheter was removed and he was able to urinate independently prior to discharge. His pain was well-controlled with oral medication and he was eating without difficulty. Exam Vital Signs (past 8 hours): - 10/19/21 05:15 Temperature 98.6 F Pulse Rate 76 Respiratory Rate 14 Blood Pressure 133/71 Pulse Oximetry 94 Oxygen Flow Rate 0 Oxygen Delivery Method Room Air Oxygen Flow Rate 0 Narrative Exam Narrative: 5/5 strength in hip flexors, quadriceps, hamstrings, DF, PF, EHL bilaterally. Sensation to light touch intact in BLE. Calves soft, compressible, nontender and without palpable cords or masses. Low back dressing placed intraoperatively w/ bloody drainage on left side; otherwise intact. [facility] Medical History (Updated 10/18/21 @ 08:53 by Jojo Rivers PA-C) Anxiety BPH (benign prostatic hyperplasia) CAD (coronary artery disease) Colon cancer (2017) Depression Hearing impaired HLD (hyperlipidemia) HTN (hypertension) Hx of tongue cancer (2018) Hypothyroidism Kidney stone (~10/10/21) Kidney stones Lung cancer (2019) Lymph node cancer (2019) Neuropathy MARVIN (obstructive sleep apnea) Spinal stenosis Surgical History (Updated 10/18/21 @ 08:53 by PRADEEP NovakC) H/O vasectomy History of colon resection (2017) History of lobectomy of lung (2018) History of lumbar spinal fusion Hx of appendectomy (2016) Hx of laminectomy (2007) Hx of laminectomy Hx of laminectomy Hx of lithotripsy Hx of tonsillectomy S/P CABG x 5 (2006) Social History household members: significant other Smoking Status: Never smoker alcohol intake: former Discharge Assessment & Plan Assessment and Plan Assessment: s/p L5-S1 transforaminal lumbar interbody fusion and posterolateral instrumented fusion Plan of Treatment: Discharge home. Discharge Plan Discharge Plan Patient Disposition: Home Discharge orders & Medications Discharge Orders: Discharge (Order); Ordered 10/19/21 Ordered By: Jojo Rivers Prescriptions: New hydroxyzine pamoate 25 mg Capsule 25 mg PO Q4HR PRN (Reason: muscle spasm) Qty: 180 1RF oxycodone 5 mg tablet 5 mg PO Q4H PRN (Reason: pain (scale score 4-6)) Qty: 60 0RF Rx Instructions: 1-2 tabs PO a 4-6 hrs PRN moderate to severe pain Continued citalopram 40 mg Tablet 40 mg PO QAM terazosin 1 mg Capsule 1 mg PO BEDTIME acetaminophen 500 mg Tablet 1,000 mg PO Q6H PRN (Reason: Pain) triamcinolone acetonide 0.1 % Cream 1 applic TOPICAL DAILY oxycodone-acetaminophen 5-325 mg Tablet 1 tab PO Q4-6H PRN (Reason: Pain) levothyroxine 112 mcg Tablet 112 mcg PO DAILY Livalo 2 mg Tablet 2 mg PO QAM Discontinued ibuprofen 200 mg Tablet 400 mg PO DAILY PRN (Reason: Pain) Follow up/Referrals: Bobby Blake DO [Primary Care Provider] - Eli Victoria MD [Physician] - As previously scheduled (Follow up with Johnathon Nair PA-C, on 10/30/2021 @ 10:10 am at [facility] Diet/Activity/Treatments Diet: Diet as Tolerated Activity: No bending more than 90 degrees or twisting at the waist. No lifting more than 20 pounds. Cold/Heat Therapy: Ice to back as needed for pain. Skin/Wound/Dressing Care Dressing: May shower; keep dressing as dry as possible. May remove and replace with clean, dry gauze if it becomes wet inside. No bathing or otherwise soaking incisions. Do not place any creams, lotions, or ointments on incisions. Visit Report/Discharge Packet Instructions: DI for Transforaminal Lumbar Interbody Fusion Stand Alone Forms: Surgery Discharge Discharge Data Primary Care Provider: Bobby Blake Attending Provider: Eli Victoria Quality VTE Deep Vein Thrombosis/Pulmonary Embolism Present on Admission: No
[2021-10-19 07:51] VITALS: BP 145/77; PULSE 77; RESP 17; TEMP 37.1; O2SAT 96
[2021-10-19] MEDS: DOCUSATE 100 MG CAPSULE PO (08:54)
[2021-10-19] MEDS: MAGNESIUM HYDROXIDE 30 ML UDC PO (08:54)
[2021-10-19] MEDS: CITALOPRAM 10 MG TABLET 40 MG PO (08:55)
--- NOTE | 2021-10-19 10:16 | PT.IPTN ---
Current Diagnoses Hypotension, unspecified (10/17/21) Spinal stenosis, lumbar region without neurogenic claudication (10/17/21) Retention of urine, unspecified (10/17/21) Arthrodesis status (10/17/21) Surgery Performed Operation Date: 10/17/21 12:45 Actual Procedures p L5-S1 TLIF -quinton Victoria MD Physical Therapy Treatment Note M2 PT-IP Current Condition Start: 10/18/21 11:00 Freq: NEEDED Status: Active Protocol: Document 10/18/21 09:24 (Rec: 10/18/21 12:04 [id number]) Physical Therapy Current Condition Current Condition Evaluation Date 10/18/21 Treatment Diagnosis s/p L5-S1 TLIF; difficulty walking Onset Date 10/17/2021 M3 PT-IP Subjective Start: 10/18/21 11:00 Freq: NEEDED Status: Active Protocol: Document 10/19/21 10:16 DLM (Rec: 10/19/21 10:25 DLM [id number]) Subjective Physical Therapy Visit Type Type Treatment Note Visit Start Time 09:45 Visit Stop Time 10:16 Total Visit Minutes 31 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 Physical Therapy Visit Comments Patient Comments He hopes to go home today Patient Goals Discharge home with his M4 PT-IP Mobility and Gait Start: 10/18/21 11:00 Freq: NEEDED Status: Active Protocol: Document 10/19/21 10:16 DLM (Rec: 10/19/21 10:25 DLM [id number]) PT-Bed Mobility Assessment Rolling Type of Rolling Log Rolling,Bilateral Level of Assist Independent Supine to Sit Supine to Sit Standby Assistance,Bedrails Sit to Supine Sit to Supine Standby Assistance,Bedrails Scooting Scooting to Edge of Bed Independent Scooting Up and Down in Bed Independent PT-Transfer Assessment Comments Mobility Comments Pt able to scoot up in bed in sidelying with use of bed rails. He sat edge of bed this visit with light headedness. BP sitting 85/51, HR 85, O2 sat 96% BP sitting 71/44, HR 89 BP supine 122/64, HR 78, O2 sat 94% Pt became very pale in sitting and light headedness did not improve. Pt returned to supine where his color improved and his light-headedness improved. He c/o increased back pain and pain in upper thighs during this visit. He was not able to progress to standing nor transfers due to his orthostatic hypotention and severe light-headedness this visit. 6/10 back pain reported. Gait Assessment Comments Gait Comments unable PT-Balance Assessment Sitting Balance and Reactions Static Sitting Balance Ability Normal Dynamic Sitting Balance Ability Good M5 PT-IP Objective Assessments Start: 10/18/21 11:00 Freq: NEEDED Status: Active Protocol: Document 10/18/21 09:24 (Rec: 10/18/21 12:04 [id number]) Orientation Orientation/Cognition Level of Alertness Alert Orientation Name,Place,Situation Language Function Ability No Deficits Noted Safety Awareness Decreased Safety Awareness Memory Description No Deficits Noted Gross Range of Motion Lower Extremity ROM Assessment Within Functional Limits Strength Lower Extremity Strength Assessment Bilaterally Impaired Hip 4-/5 Knee 4-/5 Ankle 4/5 Muscle Tone Muscle Tone WNL Yes M6 PT-IP Treatment Start: 10/18/21 11:00 Freq: NEEDED Status: Active Protocol: Document 10/19/21 10:16 DLM (Rec: 10/19/21 10:25 DL [id number]) Physical Therapy Treatment Exercises Exercises Ankle Pumps Education Education Provided Precautions,Safety Other Treatments Other Treatment Performed sitting active knee ROM as tolerated by back pain M7 PT-IP Assessment and Plan Start: 10/18/21 11:00 Freq: NEEDED Status: Active Protocol: Document 10/19/21 10:16 DLM (Rec: 10/19/21 10:25 DL [id number]) PT Summary Assessment and Plan Potential Rehabilitation Potential Good Summary Impairments Pain,ROM,Strength,Balance, Coordination,Sensation,Tone, Cognition,Bed Mobility, Transfers,Gait,Activity Tolerance Progress Towards Goals Slow Progress due to Medical Issues Assessment Summary Pt appears to be moving better with improving functional strength. He continues to have light-headedness when sitting up with orthostatic hypotension. Pt could not progress his mobility this visit. He is eager to be able to go home. His was present for therapy session. His nurse was notified of his BP issues this visit. He is not safe to discharge home at this time due to continued orthostatic hypotension. Will follow up again his afternoon . Goals Bed Mobility Goal Independent Transfer Goal Independent,Front Wheeled Walker Gait Goal Independent,Front Wheel Walker Gait Distance 200 Other Goals pt will be able to ascend and descend 4 steps L rail independently. pt will be able to ambulate 400ft independently with FWW. Days to Meet Goals 5 Frequency of Treatment Frequency Of Treatment Twice a Day Treatment Plan Physical Therapy Treatment Plan Bed Mobility Training,Transfer Training,Gait Training, Therapeutic Exercise,Balance Retraining,Post Op Education, Discharge Planning,Hot or Cold Pack Precautions Lumbar Precautions Log Roll,No Twisting,Limit Bending,Lifting Restriction of 10 lbs,Gait Belt above Incisional Area Recommendations To Nursing Amount of Assist Needed 1 Person Assist Discharge Recommendations PT Discharge Recommendations Home with Assistance,Home Health Other Discharge Recommendations he is not ready for discharge due to ongoing orthostatic hypotension that prevents progression of activity Transportation Needs at Discharge Private Vehicle
[2021-10-19] MEDS: HYDROMORPHONE 0.5 MG INJ IV (11:11)
[2021-10-19 11:35] VITALS: BP 113/68; PULSE 74; RESP 18; TEMP 37.4; O2SAT 95
[2021-10-19] MEDS: SODIUM CHLORIDE 0.9% 500 ML 1000 ML IV (12:29)
--- NOTE | 2021-10-19 12:52 | CM.DPC ---
DCP Discharge Home Per Ortho PA, pt seems medically stable to d/c home today with no identified barriers to discharge after final PT CG training. Per PT, attempted to work with pt and spouse for CG training and pt with ongoing hypotension and currently not safe for d/c home yet and will attempt again this afternoon and RN notified. Plan: SW to follow closely for further PT this afternoon to determine if pt medically stable to d/c home via spouse POV today vs tomorrow. SUSY Hale
--- NOTE | 2021-10-19 14:50 | PT.IPTN ---
Current Diagnoses Hypotension, unspecified (10/17/21) Spinal stenosis, lumbar region without neurogenic claudication (10/17/21) Retention of urine, unspecified (10/17/21) Arthrodesis status (10/17/21) Surgery Performed Operation Date: 10/17/21 12:45 Actual Procedures p L5-S1 TLIF -quinton Victoria MD Physical Therapy Treatment Note M2 PT-IP Current Condition Start: 10/18/21 11:00 Freq: NEEDED Status: Active Protocol: Document 10/18/21 09:24 (Rec: 10/18/21 12:04 [id number]) Physical Therapy Current Condition Current Condition Evaluation Date 10/18/21 Treatment Diagnosis s/p L5-S1 TLIF; difficulty walking Onset Date 10/17/2021 M3 PT-IP Subjective Start: 10/18/21 11:00 Freq: NEEDED Status: Active Protocol: Document 10/19/21 14:50 DLM (Rec: 10/19/21 16:38 DLM [id number]) Subjective Physical Therapy Visit Type Type Treatment Note Visit Start Time 14:00 Visit Stop Time 14:50 Total Visit Minutes 50 Notes Vital signs: Supine BP 134/68, HR77 Sitting BP 102/69, HR 80 Standing BP 101/64, HR 91 After Gait BP 133/70, HR 75 ( pt sitting) End of treatment session BP 121/72, HR 77 (seated) No light-headedness reported this visit 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 Patient Goals Be able to discharge home with his M4 PT-IP Mobility and Gait Start: 10/18/21 11:00 Freq: NEEDED Status: Active Protocol: Document 10/19/21 14:50 DLM (Rec: 10/19/21 16:38 DLM [id number]) PT-Bed Mobility Assessment Rolling Type of Rolling Log Rolling Level of Assist Independent Supine to Sit Supine to Sit Independent Sit to Supine Sit to Supine Independent Scooting Scooting to Edge of Bed Independent PT-Transfer Assessment Sit to and From Stand Sit to and from Stand Independent,Use of Upper Extremities Equipment Transfer Assistive Device Gait Belt,Front Wheeled Walker Transfers Transfer Destination Bed,Chair,Wheelchair Transfer Technique Stand Step Pivot Transfer Ability Level of Assist Standby Assistance,Use of Upper Extremities Gait Assessment Gait Gait Assistance Required: Standby Assistance Distance (Feet) 60 Assistive Devices Assistive Device Gait Belt,Front Wheeled Walker Factors Limiting Gait Function Factors Limiting Gait Function Decreased Activity Tolerance, Limited Range of Motion,Pain, Poor Balance Comments Gait Comments mild incoordination noted during gait but no losses of balance using the FWW Stair Climbing Assessment Evaluation Level of Assist On Stairs Standby Assistance Devices Stair Climbing Assistive Devices Left Railing,Right Railing Technique/Endurance Stair Climbing Direction Ascend and Descend Stair Climbing Technique Step Over Step Number of Steps Climbed 3 Stair Climbing Set # Repetitions (reps) 2 Comments Stair Climbing Comments also able to go up and down curb with FWW and SBA PT-Balance Assessment Sitting Balance and Reactions Static Sitting Balance Ability Normal Dynamic Sitting Balance Ability Good Standing Balance and Reactions Static Standing Balance Ability Good Dynamic Standing Balance Ability Good Device Used FWW M5 PT-IP Objective Assessments Start: 10/18/21 11:00 Freq: NEEDED Status: Active Protocol: Document 10/18/21 09:24 (Rec: 10/18/21 12:04 [id number]) Orientation Orientation/Cognition Level of Alertness Alert Orientation Name,Place,Situation Language Function Ability No Deficits Noted Safety Awareness Decreased Safety Awareness Memory Description No Deficits Noted Gross Range of Motion Lower Extremity ROM Assessment Within Functional Limits Strength Lower Extremity Strength Assessment Bilaterally Impaired Hip 4-/5 Knee 4-/5 Ankle 4/5 Muscle Tone Muscle Tone WNL Yes M6 PT-IP Treatment Start: 10/18/21 11:00 Freq: NEEDED Status: Active Protocol: Document 10/19/21 14:50 DLM (Rec: 10/19/21 16:38 DL [id number]) Physical Therapy Treatment Exercises Exercises Ankle Pumps Education Education Provided Precautions,Safety Equipment Issued Equipment Type and Company he reports having a fWW to use at home Other Treatments Other Treatment Performed His present this visit and participate in therapy session. Pt able to stand at toilet to urinate with FWW. He sat in recliner with good tolerance for seated rest breaks. M7 PT-IP Assessment and Plan Start: 10/18/21 11:00 Freq: NEEDED Status: Active Protocol: Document 10/19/21 14:50 DLM (Rec: 10/19/21 16:38 DL [id number]) PT Summary Assessment and Plan Summary Impairments Pain,ROM,Strength,Balance, Coordination,Sensation,Tone, Cognition,Bed Mobility, Transfers,Gait,Activity Tolerance Progress Towards Goals Progressing Toward Goals,Safe For Discharge Assessment Summary Yinka demonstrates good progress this visit. No light- headedness when up moving. He shows an initial drop in BP getting up but was not symptomatic and it stabalized once up. He was able to ambulate with fWW and go up and down stairs. He reports he will stay at family's house at discharge so the bedroom and bathroom will be closer. His is prepared to help him as needed at discharge. He appears safe to discharge home today. His nurse was notitifed. Goals Bed Mobility Goal Independent Transfer Goal Independent,Front Wheeled Walker Gait Goal Independent,Front Wheel Walker Gait Distance 200 Other Goals pt will be able to ascend and descend 4 steps L rail independently. pt will be able to ambulate 400ft independently with FWW. Days to Meet Goals 5 Frequency of Treatment Frequency Of Treatment Twice a Day Treatment Plan Physical Therapy Treatment Plan Bed Mobility Training,Transfer Training,Gait Training, Therapeutic Exercise,Balance Retraining,Post Op Education, Discharge Planning,Hot or Cold Pack Precautions Lumbar Precautions Log Roll,No Twisting,Limit Bending,Lifting Restriction of 10 lbs,Gait Belt above Incisional Area Recommendations To Nursing Amount of Assist Needed Standby Assistance Discharge Recommendations PT Discharge Recommendations Home with Assistance Transportation Needs at Discharge Private Vehicle
[2021-10-19 15:04] VITALS: BP 116/58; PULSE 76; RESP 18; TEMP 37.1; O2SAT 98
--- NOTE | 2021-10-19 16:34 | PC.NURSE ---
DAY SHIFT Pt left unit at 1625, via . Paperwork signed all questioned answered. Pt has all personal belongings. Spouse in room for discharge teachings. Dressing changed prior to discharge PER PA orders/instructions. Taken to car via WC by ELÍAS Slaughter. Pt cleared by PT. Pt able to void post Rae in small amounts. CMS remained intact, steady on feet with front wheeled walker.
== END 2021-10-19 16:38 | disposition home or self-care (01) ==
LOC: OR 10-20 07:38 → AC 10-20 07:38
PROVIDERS: Admitting Provider Orthopaedic Surgery Orthopaedic Surgery of the Spine; PCP Family Medicine; Referring Provider Orthopaedic Surgery Orthopaedic Surgery of the Spine; Visit Provider Orthopaedic Surgery Orthopaedic Surgery of the Spine
PROC: (CPT 20939; principal; 2021-10-17 12:45)
DX: M48.061 Spinal stenosis, lumbar region without neurogenic claudication (principal); M47.26 Other spondylosis with radiculopathy, lumbar region; Z95.1 Presence of aortocoronary bypass graft
CPT/HCPCS: 20939; 22853; 22633; 63052; 22840; 00670; 72100; 76000; 82962; 97116; 97162; 97165; 97530; 97535; G0378; C1831; C9290; J0131; J0171; J0690; J1170; J2405; J2704; J3410

== ENCOUNTER → 2022-07-24 13:05 | Outpatient (CLI) | payer MEDICARE, SELFPAY ==
[2021-10-17 19:20] VITALS: BMI 25.0
--- NOTE | 2022-07-24 | DI.CT.S_ITS ---
PROCEDURE: CT LUMBAR SPINE WO CON INDICATIONS: Arthrodesis status TECHNIQUE: Noncontrast 3 mm thick sections acquired from the T12 level to the sacrum. Sagittal and coronal reformats were constructed. For radiation dose reduction, the following was used: automated exposure control. COMPARISON: [facility], CR, XR LUMBAR SPINE 2 OR 3 VIEWS, 11/25/2021, 13:23. FINDINGS: Image quality: Excellent. Bones: There is straightening of normal lumbar lordosis. Again noted are post fusion changes at L3-4 and L4-5 levels. There is also posterior fusion at L5-S1 level with transpedicular screws and intervertebral spacer seen. There is no evidence of hardware loosening or failure. Chronic appearing anterior wedge compression deformity at L1 level is again seen not significantly changed from prior study . No acute vertebral body compression fractures. No significant spondylolisthesis. No suspicious lytic or blastic bony lesions. No pars defects. T12-L1: Disc height is normal. Mild degenerative endplate changes are seen. Bilateral facet arthrosis is also noted. There is mild central canal stenosis and bilateral neural foraminal narrowing. L1-L2: Degenerative endplate changes are noted. Diffuse disc bulge and bilateral facet arthrosis is seen. Mild central canal stenosis and bilateral neural foraminal narrowing is seen, not significantly changed from prior study. L2-L3: Diffuse disc bulge and bilateral facet arthrosis is seen. Mild central canal stenosis and mild bilateral neural foraminal narrowing is noted unchanged from prior study. L3-L4: Postfusion changes are noted. Dorsal disc osteophyte complex formation is seen with bilateral facet arthrosis causing [id number] central canal stenosis and bilateral neural foraminal narrowing. L4-L5: Prior posterior fusion and posterior decompression is noted. Diffuse disc bulge and bilateral facet arthrosis is seen. No significant central canal stenosis. Moderate bilateral neural foraminal narrowing is noted. L5-S1: Postfusion changes are noted. There is also left-sided laminectomy. Bilateral facet arthrosis is seen causing moderate bilateral neural foraminal narrowing. Soft tissues: No retroperitoneal masses or hematomas. Visualized aorta is normal in caliber. IMPRESSION: 1. Postsurgical changes from lower lumbar spine fusion as described above. No evidence of hardware loosening or failure. Chronic appearing anterior compression involving superior endplate of L1 unchanged from prior studies. No acute vertebral body compression fractures. 2. Degenerative disc bulge and bilateral facet arthrosis throughout lumbar spine causing various degrees of central canal stenosis and bilateral neural foraminal narrowing as described above. Dictated by: Yordy Ruiz M.D. on 07/24/2022 at 22:02 Approved by: Yordy Ruiz M.D. on 07/24/2022 at 22:12
== END ==
PROVIDERS: PCP Family Medicine; Referring Provider Orthopaedic Surgery Orthopaedic Surgery of the Spine; Visit Provider Orthopaedic Surgery Orthopaedic Surgery of the Spine
DX: M51.36 Other intervertebral disc degeneration, lumbar region (principal); M48.061 Spinal stenosis, lumbar region without neurogenic claudication; M47.816 Spondylosis without myelopathy or radiculopathy, lumbar region; Z98.1 Arthrodesis status
CPT/HCPCS: 72131

== ENCOUNTER 2022-08-17 08:53 | Inpatient (IN) | payer MEDICARE, SELFPAY ==
[2021-10-17 19:20] VITALS: BMI 25.0
[2022-08-14 13:54] VITALS: BMI 25.5
[2022-08-17] VITALS (13 sets, daily range): BP systolic 109–154; BP diastolic 55–88; PULSE 52–99; RESP 10–20; TEMP 36.2–37.1; O2SAT 91–99; BMI 28.0
--- NOTE | 2022-08-17 10:05 | SUR.OPER ---
Prone on spine table, head in foam head support, padded chest and pelvic supports, gel pad at knees, lower legs supported by pillows; nipples, genitalia and toes free of pressure, arms secured on foam padded arm boards at <90 degrees abduction. Tape over blanket at thigh secured to table.
[2022-08-17] MEDS: LACTATED RINGERS 1,000 ML 42 ML IV ×2 (10:18→12:02)
--- NOTE | 2022-08-17 11:06 | PM.PREOP ---
Pre-operative Note COVID-19 Criteria for continued procedure: Expected advancement of disease process, Possibility delay results in more complex future surgery or treatment, Increased loss of function, Continuing or worsening of significant or severe pain, Deterioration of the patient's condition or overall health and Delay expected to result in less-positive ultimate med/surg outcome Interval Note History & Physical reviewed/Exam performed by Physician: Yes Changes to H&P: No
[2022-08-17] MEDS: CEFAZOLIN 2 GM/100 ML PREMIX 100 ML IV ×2 (11:30→20:24)
[2022-08-17] MEDS: BUPIVACAINE LIPOSOME 266 MG/20 ML VIAL INJ (12:00)
[2022-08-17] MEDS: BUPIVACAINE 0.25% (PF) 60 ML, EPINEPHrine 0.15 MG INJ (12:04)
--- NOTE | 2022-08-17 12:59 | PM.OP.1 ---
Operative Date/Time/Diagnoses Date of procedure: 08/17/22 Time of procedure: 11:00 Pre-op diagnosis: 1. L5-S1 hardware loosening 2. Pseudoarthrosis L5-S1 with history of fusion Post-op diagnosis: same Procedure & Clinicians Procedure: 1. L5-S1 hardware removal and re-insertion 2. L5-S1 exploration of fusion and repeat catina-laminectomy 3. L5-S1 posterolateral fusion Same procedure as scheduled: Yes Indications: Patient has been having worsening back pain 10 months after L5-S1 fusion. Patient's CT recently shows bilateral lumbar hardware loosening correlating with patient's worsening symptoms. Patient failed multiple conservative management with worsening pain in his back. Patient has been having difficulty performing activity of daily living. After discussing risks benefits of treatment options, patient elected proceed with surgery. Surgeon: Eli Victoria Excavating Supervisor: Cari Lozano Click Yes if Unassisted: No Anesthesia Type: General Operative Notes Closure Type: primary Specimen(s): none sent Prosthetic devices, grafts, tissues, transplants, or devices: Globus CREO MIS screws Estimated Blood Loss (mL): 10 Blood products transfused: none Procedure in detail: Patient was seen in the preoperative area. Risks and benefits of the surgery was discussed with the patient. Informed consent was obtained from the patient and placed in the chart. Surgical site was marked. Patient was taken to the operative room. General anesthesia was administered. Prophylactic antibiotic was given to the patient less than 30 min before the incision was made. Patient was placed into a prone position on the Faraz table. Patient's back was then prepped and draped in the sterile fashion. Time-out was performed at this time. Using patient's previous scar incision was made over the L5-S1 interval on the right side. Fascia was incised in line with skin incision. Patient's previously placed hardware over the L5-S1 level was identified by dissecting down to the level the hardware using a Bovie and a Esquivel. The locking caps which was removed using globus screwdriver. The locking magi was then removed from the tulips of the pedicle screws using a Devi. The pedicle screws were then removed using the screwdriver. The screws were found to be loose at both L5 and S1 level. At this time a mirror image incision was made on the left side. The fascia was incised in line with the skin incision. Patient's previously placed hardware on the left side was then removed in the same fashion as it was on the right side. The hardware was also found to be loose as well at both L5-S1 level. The fusion mass on the left side was exposed by performing a left-sided hemilaminectomy at L5 level. The hemilaminectomy was performed using the Kerrison rongeur to undercut the lamina as well removing additional epidural scar tissue for purpose of decompressing the epidural space and nerve roots. The fusion mass was explored and was found have visible motion indicating pseudoarthrosis. Globus MARS retractor was inserted and docked onto the L5-S1 posterolateral gutter. Using the power drill, posterior-lateral decortication was performed at L5-S1 level until bleeding cortical bone was identified. The Globus Trifecta bone grafting material was placed into the L5-S1 posterior lateral gutter he order to accomplish posterolateral fusion at the L5-S1 level. Using the double C-arm technique, pedicle screws were placed into the L5 and S1 pedicles bilaterally. This was done by placing the Jamshidi needle into the pedicles, then placing the guidewires over the Jamshidi needle, and finally placing the cannulated screws over the guidewires bilaterally. After the pedicle screws were placed, 2 titanium rods was locked into the heads of the pedicle screws using locking caps and torque limiting screwdriver. The S1 screws were increased in diameter by 2 mm. L5 screws were increased in diameter by 1 mm. All 4 screws had excellent purchase. After all the hardware was placed, and confirmed with AP and lateral C-arm imaging, the wound was then irrigated with sterile normal saline and packed with Ray-Moses gauze for 3 min to accomplish hemostasis. After the gauze was removed the deep fascia was closed with #1 Vicryl suture. The subcutaneous layer was closed with 2-0 Vicryl. The skin was closed with skin verónica. Patient tolerated the procedure well. There were no complications. The Operation could not have been safely performed without compromising the technical result or length of the procedure, without the assistance of a skilled assistant professor of anthropology. The assistant professor of anthropology was medically necessary for proper positioning, retraction and manipulation of instruments, proper exposure, surgical preparation, and manipulation of tissue. Complications: none Post-operative Condition: stable Disposition: PACU Plan for aftercare: Admit to inpatient hospital
--- NOTE | 2022-08-17 13:01 | DI.RAD.S_ITS ---
PROCEDURE: XR LUMBAR SPINE 2-3V INDICATIONS: REINSERTION OF SCREWS (LARGER) TECHNIQUE: 2 views of the lumbar spine were acquired. COMPARISON: [facility], [facility], XR LUMBAR SPINE 2-3V, 10/17/2021, 14:01. FINDINGS: Fluoroscopic guidance utilized for a lumbar fusion procedure. IMPRESSION: Fluoroscopic guidance. Dictated by: Filiberto Vogel M.D. on 08/17/2022 at 13:30 Approved by: iFliberto Vogel M.D. on 08/17/2022 at 13:31
[2022-08-17] MEDS: ACETAMINOPHEN 325 MG TABLET 650 MG PO (13:26)
[2022-08-17] MEDS: OXYCODONE IR 5 MG TABLET PO ×2 (13:26→20:23)
[2022-08-17] MEDS: hydrOXYzine pamoate 25 MG CAPSULE 50 MG PO ×2 (13:38)
[2022-08-17] MEDS: HYDROMORPHONE 0.5 MG INJ IV ×2 (14:28→23:01)
[2022-08-17] MEDS: LACTATED RINGERS 1,000 ML 125 ML IV ×2 (14:42→16:21)
--- NOTE | 2022-08-17 14:59 | PT-IP ANOTE ---
Received PT orders and completed chart review. Discussed pt with RN who stated pt was reporting high pain levels and anxiety - not appropriate for therapy evaluation. Will follow up next service date.
--- NOTE | 2022-08-17 15:00 | OT.IPNOTE ---
OT eval and treat order received. Chart reviewed. Per P.T., pt is anxious and in pain at this time. Will hold and continue to follow.
[2022-08-17] MEDS: LORazepam 2 MG/ML INJ 0.5 MG IV (16:19)
--- NOTE | 2022-08-17 18:32 | PC.NURSE ---
Day shift: Pt admitted from PACU at 1400. A&Ox4. VS WNL. Pt complaining of 8/10 pain in low back. Received PO oxycodone and tylenol in PACU. Gave 0.5mg IV dilaudid with minimal relief upon arrival to the floor. Called PIPO Lozano. She said to wait a bit, as she is concerned about making him too sleepy. 1 hour later she ordered 1 time dose of 0.5mg IV ativan. Pt stated he was feeling anxious about his pain. Gave dose and pt reports much improvement of pain and stress. PIV running LR at 125. Dressing on back is CDI. Girlfriend, Valentine, at bedside. Pt voiding in urinal. Not OOB yet. No nausea. Tolerating general diet. Pt reports that he is a DNR, though he does not have his advanced directives or any legal paperwork with him. I notified PIPO Lozano and she said she would let PIPO Nair know before rounds tomorrow AM. I also notified PIPO Lozano of pt's request for medication change. He states at home he takes Lexapro, not Citalopram. He states Citalopram is what he used to take, but no longer. PIPO Lozano said PIPO Nair could address it in the AM. Will continue to monitor.
[2022-08-17] MEDS: DOCUSATE 100 MG CAPSULE PO (20:24)
[2022-08-17] MEDS: SENNOSIDES 8.6 MG TABLET 17.2 MG PO (20:24)
[2022-08-18 00:12] VITALS: BP 142/79; PULSE 85; RESP 18; TEMP 37.5; O2SAT 97
[2022-08-18] MEDS: LACTATED RINGERS 1,000 ML 125 ML IV (00:44)
[2022-08-18 03:32] VITALS: BP 152/86; PULSE 84; RESP 18; TEMP 37.4; O2SAT 97
[2022-08-18] MEDS: HYDROMORPHONE 0.5 MG INJ IV (03:33)
[2022-08-18] MEDS: CEFAZOLIN 2 GM/100 ML PREMIX 100 ML IV (03:33)
[2022-08-18] MEDS: LEVOTHYROXINE 112 MCG TABLET PO (05:18)
--- NOTE | 2022-08-18 05:39 | PC.NURSE ---
Around 2350 bladder scan showing 400+, straight cath emptied 300ml post void. 0500: Pt urinating about 100ml each time w/ frequency. Pt c/o discomfort. Bladder scan reading >550ml. Dr. Joy called, new order for fried catheter and 0.4mg PO flomax daily. Fried placed
[2022-08-18 07:00] VITALS: BP 136/87; PULSE 80; RESP 17; TEMP 36.2; O2SAT 98
--- NOTE | 2022-08-18 07:17 | P.PN_ITS ---
Subjective Subjective Date Patient Seen: 08/18/22 Time Patient Seen: 07:17 Interval history: Patient's pain has been moderate to severe. Denies fever or chills. No nausea vomiting. Patient has not been out of bed yet. Patient difficulty voiding last night with straight cath x1. Continue to have urinary retention and catheter placed earlier this morning after having a bladder scan with 600 mL on the scan. Otherwise without complaints. Exam Vital Signs (past 8 hours): - 08/18/22 00:12 08/18/22 03:32 Temperature 99.5 F 99.3 F Pulse Rate 85 84 Respiratory Rate 18 18 Blood Pressure 142/79 H 152/86 H Pulse Oximetry 97 97 Oxygen Flow Rate 0 0 Oxygen Delivery Method Room Air Oxygen Flow Rate 0 Narrative Exam Narrative: 72-year-old male resting comfortably in bed in no apparent distress. Neurovascular status is intact bilateral lower extremities. Const General: cooperative and comfortable Nutritional Appearance: average body habitus Orientation: alert Resp Effort & Inspection: normal respiratory effort and able to speak in complete sentences [facility] Medical History Anxiety BPH (benign prostatic hyperplasia) CAD (coronary artery disease) Colon cancer (2018) Depression Hearing impaired HLD (hyperlipidemia) HTN (hypertension) Hx of tongue cancer (2019) Hypothyroidism Kidney stone (~10/10/21) Kidney stones Lung cancer (2019) Lymph node cancer (2019) Neuropathy MARVIN (obstructive sleep apnea) Spinal stenosis Surgical History H/O vasectomy History of colon resection (2017) History of lobectomy of lung (2018) History of lumbar spinal fusion History of lumbar spinal fusion (10/16/21) Hx of appendectomy (2016) Hx of laminectomy (2007) Hx of laminectomy Hx of laminectomy Hx of lithotripsy Hx of tonsillectomy S/P CABG x 5 (2006) Social History household members: significant other Smoking Status: Never smoker alcohol intake: former Assessment & Plan Post-op Postoperative Procedures: Procedures Operation Date: 08/17/22 11:45 Actual Procedure Side Surgeon p L5-S1 lumbar HARDWARE REMOVAL, exploration of fusion, repeat laminectomy, reinsertion of hardware Eli Victoria MD Postoperative day: 1 Postoperative status: doing well, urinary retention and marginal pain control Postoperative status narrative: Patient progressing as expected Postoperative plan narrative: Discontinue Rae catheter in start Flomax for urinary retention Discontinue Dilaudid and add oxycodone 10 mg for severe pain Mobilize with physical therapy, limit bending, twisting, lifting Disposition likely home today or tomorrow
[2022-08-18] MEDS: ACETAMINOPHEN 325 MG TABLET 650 MG PO (09:14)
[2022-08-18] MEDS: DOCUSATE 100 MG CAPSULE PO (09:14)
[2022-08-18] MEDS: polyethylene glycoL 3350 17 GM POWD.PACK PO (09:14)
[2022-08-18] MEDS: TAMSULOSIN 0.4 MG CAPSULE PO (09:15)
[2022-08-18] MEDS: OXYCODONE IR 5 MG TABLET PO ×2 (09:15→12:18)
[2022-08-18] MEDS: CITALOPRAM 10 MG TABLET 20 MG PO (09:15)
--- NOTE | 2022-08-18 10:10 | PT.IIE ---
Current Diagnoses Other mechanical complication of other internal orthopedic devices, implants and grafts, initial encounter (08/17/22) Arthrodesis status (08/17/22) Surgery Performed Operation Date: 08/17/22 11:45 Actual Procedures p L5-S1 lumbar HARDWARE REMOVAL, exploration of fusion, repeat laminectomy, reinsertion of hardware - Eli Victoria MD Surgical History (Last Reviewed 08/18/22 @ 07:18 by Johnathon Nair PA-C) H/O vasectomy History of colon resection (2017) History of lobectomy of lung (2018) History of lumbar spinal fusion History of lumbar spinal fusion (10/16/21) Hx of appendectomy (2016) Hx of laminectomy (2007) Hx of laminectomy Hx of laminectomy Hx of lithotripsy Hx of tonsillectomy S/P CABG x 5 (2006) Medical History (Last Reviewed 08/18/22 @ 07:18 by Johnathon Nair PA-C) Anxiety BPH (benign prostatic hyperplasia) CAD (coronary artery disease) Colon cancer (2017) Depression Hearing impaired HLD (hyperlipidemia) HTN (hypertension) Hx of tongue cancer (2018) Hypothyroidism Kidney stone (~10/10/21) Kidney stones Lung cancer (2019) Lymph node cancer (2019) Neuropathy MARVIN (obstructive sleep apnea) Spinal stenosis Physical Therapy Inpatient Evaluation/Re-Eval M1 PT/OT-IP Prior Functional Status Start: 08/18/22 11:10 Freq: NEEDED Status: Active Protocol: Document 08/18/22 10:10 AB (Rec: 08/18/22 11:19 AB [id number]) Medical Review Prior Functional Status Medical History Reviewed Yes Communication able to make needs known Mobility and Gait pt stated that he is independent with all mobilities and ambulation without AD Social History Household Members significant other Living Arrangements House Number of Floors (Floors) One Floor Number of Stairs To Enter/Railing? 3 steps B rails to enter Home Environment Standard Height Toilet,Tub/ Shower,Built-In Shower Seat Home Equipment Front Wheel Walker Additional Social History Comment has a walking stick M2 PT-IP Current Condition Start: 08/18/22 11:10 Freq: NEEDED Status: Active Protocol: Document 08/18/22 10:10 AB (Rec: 08/18/22 11:19 AB [id number]) Physical Therapy Current Condition Current Condition Evaluation Date 08/18/22 Treatment Diagnosis s/p L5S1 fusion; difficulty in walking Onset Date 08/17/22 M3 PT-IP Subjective Start: 08/18/22 11:10 Freq: NEEDED Status: Active Protocol: Document 08/18/22 10:10 AB (Rec: 08/18/22 11:19 AB [id number]) Subjective Physical Therapy Visit Type Type Initial Evaluation Visit Start Time 10:10 Visit Stop Time 10:30 Total Visit Minutes 20 Number of WEIGHER AND MIXER Visits 0 Physical Therapy Visit Comments Patient Comments agreeable to do PT Therapy Pain Assessment Pain When Pain Assessed At Rest Pain Present Pain Present Pain Reported Location back Intensity 5 Scale Used Numeric (0 - 10) Pain Management Techniques Apply Cold,Distraction, Modification of Treatment,Re- positioning,Timing of Activity with Medications M4 PT-IP Mobility and Gait Start: 08/18/22 11:10 Freq: NEEDED Status: Active Protocol: Document 08/18/22 10:10 AB (Rec: 08/18/22 11:19 AB [id number]) PT-Bed Mobility Assessment Rolling Type of Rolling Log Rolling Level of Assist Standby Assistance Supine to Sit Supine to Sit Standby Assistance Sit to Supine Sit to Supine Standby Assistance PT-Transfer Assessment Sit to and From Stand Sit to and from Stand Standby Assistance,1 Person Assistance Equipment Transfer Assistive Device None,Gait Belt Orthotic/Prosthetic Devices or Brace: No Transfers Transfer Destination Chair Transfer Technique ambulated Transfer Ability Level of Assist Standby Assistance Comments Mobility Comments checked on pt and pt standing with spouse in room without AD . pt appears steady and agreed to do PT. pt able to recall back precautions 2/3. educated on back precautions. ambulated to the bed without AD SBA. demonstrated log roll bed mobility sit<>supine SBA. ambulated in the hallway without AD SBA to CGA. presents with antalgic gait with slight LOB but able to recover without assistance but cues for safety. pt tends to lean more on R side and has difficulty walking a straight path with slight wavering during ambulation. CGA provided with turns and pt cued to slow down and able to control turns with slowing down. pt demonstrated up/down steps using B rails SBA. pt ambulated back to the room without AD SBA. educated pt on safety and use of AD for long distance ambulation or with uneven surfaces. pt agreed. pt demonstrated ambulation using FWW and able to use safely. left pt with spouse in room. pt and spouse without further concerns. Gait Assessment Gait Gait Assistance Required: Standby Assistance,Contact Guard Assist Distance (Feet) 150 Able to Maintain Weight Bearing Status Yes During Gait Assistive Devices Assistive Device None,Gait Belt,Front Wheeled Walker Orthotic/Prosthetic Devices or Brace: No Gait Deviations General Gait Pattern Antalgic,Decreased Stride Length,Decreased Feet Clearance Factors Limiting Gait Function Factors Limiting Gait Function Decreased Activity Tolerance, Decreased Strength,Limited Range of Motion,Pain,Poor Balance,Poor Safety Awareness Stair Climbing Assessment Evaluation Level of Assist On Stairs Standby Assistance Devices Stair Climbing Assistive Devices Left Railing,Right Railing Technique/Endurance Stair Climbing Direction Ascend and Descend Stair Climbing Technique Step Over Step Number of Steps Climbed 3 Query Text: Stair Climbing Set # Repetitions (reps) 1 PT-Balance Assessment Sitting Balance and Reactions Static Sitting Balance Ability Normal Dynamic Sitting Balance Ability Normal Standing Balance and Reactions Static Standing Balance Ability Good Dynamic Standing Balance Ability Fair Device Used without AD M5 PT-IP Objective Assessments Start: 08/18/22 11:10 Freq: NEEDED Status: Active Protocol: Document 08/18/22 10:10 AB (Rec: 08/18/22 11:19 AB [email or web address]) Orientation Orientation/Cognition Level of Alertness Alert Orientation Name,Place,Situation Language Function Ability No Deficits Noted Safety Awareness Decreased Safety Awareness Memory Description Short Term Impaired Gross Range of Motion Lower Extremity ROM Assessment Within Functional Limits Strength Lower Extremity Strength Assessment Within Functional Limits Coordination Assessment Gross Coordination Gross Coordination WNL Sensation Assessment Sensation Gross Sensation WNL Muscle Tone Muscle Tone WNL Yes M6 PT-IP Treatment Start: 08/18/22 11:10 Freq: NEEDED Status: Active Protocol: Document 08/18/22 10:10 AB (Rec: 08/18/22 11:19 AB [email or web address]) Physical Therapy Treatment Education Education Provided Precautions,Weight Bearing Status,Post-Op Packet,Safety M7 PT-IP Assessment and Plan Start: 08/18/22 11:10 Freq: NEEDED Status: Active Protocol: Document 08/18/22 10:10 AB (Rec: 08/18/22 11:19 AB [id number]) PT Summary Assessment and Plan Potential Rehabilitation Potential Good Status of Condition at Evaluation Stable Summary Impairments Pain,ROM,Strength,Balance, Coordination,Sensation,Tone, Cognition,Bed Mobility, Transfers,Gait,Activity Tolerance Assessment Summary pt requiring SBA with mobility without AD but with unsteady gait and recommending use of FWW/walking stick for outdoor/ long distance ambulation. pt plans to go home and spouse to assist him if needed. pt may go home when medically stable. Goals Bed Mobility Goal Independent Transfer Goal Independent Gait Goal Independent Gait Distance 300 Other Goals up/down 3 steps without rail mod I Days to Meet Goals 3 Frequency of Treatment Frequency Of Treatment Twice a Day Treatment Plan Physical Therapy Treatment Plan Bed Mobility Training,Transfer Training,Gait Training, Therapeutic Exercise,Balance Retraining,Post Op Education, Discharge Planning,Hot or Cold Pack,Neuromuscular Re-ed, Coordination Retraining,Manual Therapy Precautions Lumbar Precautions Log Roll,No Twisting,Limit Bending,Lifting Restriction of 10 lbs,Gait Belt above Incisional Area Recommendations To Nursing Amount of Assist Needed Standby Assistance Discharge Recommendations PT Discharge Recommendations Home with Assistance Transportation Needs at Discharge Private Vehicle
--- NOTE | 2022-08-18 10:39 | OT.IPNOTE ---
Pt here for L5-S1 TLIF revision and already moving in the room independently. Pt states has no needs for OT and will have assist at home. Therefore discharge pt from OT services.
--- NOTE | 2022-08-18 11:17 | CM.DANOTE ---
Initial Discharge Assessment Note: Case reviewed, met with patient; met with patient. Payer: [facility] and self pay PCP: Bobby Blake 72 year old male in for L5-S1 revision yesterday. He has experienced urinary retention and fried removed and being evaluated for voiding on own. Patient lives in [place] and is anxious to return home. OT, states he doesn't need therapy service in hospital. Plan: Discharge home with assist when medically cleared. Lia Sanchez RN/DCP Discharge Planning/Care Management Advanced directive, confirm from FAMILY Start: 08/17/22 16:08 Freq: Q24H Status: Active Protocol: Document 08/17/22 16:08 SB (Rec: 08/17/22 17:48 SB [id number]) Advance Directive, confirm on record Time 16:00 Person contacted pt and gf -patient states he is a DNR.0 documentation. PIPO Lozano notified. Copy received No CM Discharge Assessment Start: 08/18/22 11:16 Freq: Status: Active Protocol: Document 08/18/22 11:16 (Rec: 08/18/22 11:17 [id number]) Discharge Planning Assessment Assigned Flute Polisher Lia Sanchez RN/ENRIQUEP Advance Directives? Yes: Pt reports he has a DNR. No copy available. Notified PA . Advance Directives on File No History Provided By Patient,Family Member Prior Living Arrangements House Household Members significant other Type of transporation used prior to Drives own vehicle admit Independent with ADL's Yes Is patient alert and oriented? Yes Caregiver for Another No Barriers to Discharge No Discharge Plan Home Transportation Arrangement spouse Referrals Initiated None needed Review Status In Process Next Review Type Continued Stay Review Pre-Anesthesia Assessment Start: 08/14/22 13:54 Freq: Status: Active Protocol: Document 08/14/22 13:54 CAB (Rec: 08/14/22 13:58 CAB [id number]) Pre-Anesthesia Assessment PAC Comment Pt is s/p L5-S1 TLIF 10/17/21 Patient Information Reviewed Via Chart Review Primary Care Provider Bobby Blake Seen Specialist in Last 12 Months Yes Specialist Seen Pack Room Operator,Oncologist, Orthopedist Primary Language Kenyan Preferred Language [place] Station Gateman Required No Height 177.8 cm Weight 80.739 kg Body Mass Index (BMI) 25.5 Hearing Ability Hearing Impaired,Use of Hearing Aid Visual Assist Glasses Dentition Type Teeth, Natural Present Barriers to Learning None Hx Anesthesia Reactions Yes: Ketamine causes hallucinations, MARVIN, mild, no current treatment Hx Family Anesthesia Reaction No Hx Malignant Hyperthermia No Hx Blood Transfusions No Anesthesia Review Requested No 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 No Does patient have COOK/SOB No Hx Sleep Apnea Yes: Mild per pt, no treatment CPAP/BIPAP use not prescribed Currently Taking a Beta [place] No Can You Climb a Flight of Stairs Without No SOB Hx Chest Pain Yes: Prior to CABG, nothing current Hx SOB No Hx Syncope or Dizziness No Anti-Coagulant Therapy No Has a Case Assistant No Cardiac Testing No Hx Pacemaker/ICD No Pacemaker Rep Required? No Cardiac Clearance Received No Diet Type At Home Regular Dysphagia No Gastrointestinal Symptoms Constipation Genitourinary Symptoms Burning Chronic UTI No Bladder Pattern Urgency Urinary Catheter Present No Hx Urinary Self Catheterization No Diabetes No Presence of External or Internal Medical Yes: Lumbar, CABG, Devices Received a COVID vaccine? Yes Received all doses? Yes Marital Status Single Lives With significant other Current Living Arrangements House Support System Family,Significant Other Patient Discharge Plan Description Return Home Feels Safe in Current Environment Yes Been Physically Hurt or Threatened By a No Person in Current Environment Do you have thoughts of harming yourself None or others? Are you currently considering suicide? No Do you have a plan to hurt yourself or No Plan others? Do You Have Any Spiritual Beliefs That No May Affect Your HC Choices? Do You Have Any Cultural Practices That No May Affect Your HC Choices? Emergency Contact Name Shahana martines) Emergency Contact Phone Number or Home: Advance Directives? Yes Advance Directives on File No Power of Airplane Tube Builder Yes Power of Airplane Tube Builder Name Shahana martines) Power of Airplane Tube Builder Phone Number or Home:
[2022-08-18 13:29] VITALS: BP 113/69; PULSE 78; RESP 17; TEMP 36.3; O2SAT 98
--- NOTE | 2022-08-18 13:33 | PM.DS.1 ---
History of Present Illness History of Present Illness Date Patient Seen: 08/18/22 Time Patient Seen: 13:33 Chief complaint: Back pain Narrative: See progress note Discharge Providers Provider Date of admission: 08/17/22 08:53 Discharge Date: 08/18/22 Primary care physician: Bobby Blake DO Consults: 08/17/22 14:16 Consult to Occupational Therapy Evaluate & Treat Comment: Physician Instructions: Evaluate and treat Consult to Physical Therapy Evaluate & Treat Comment: Physician Instructions: Evaluate and Treat Discharge provider: Johnathon Nair PA-C Summary Hospital Course Discharge Diagnosis: 1. L5-S1 hardware loosening 2. Pseudoarthrosis L5-S1 with history of fusion Urinary retention Hospital Course: 1. L5-S1 hardware removal and re-insertion 2. L5-S1 exploration of fusion and repeat catina-laminectomy 3. L5-S1 posterolateral fusion Same procedure as scheduled: Yes Indications: Patient has been having worsening back pain 10 months after L5-S1 fusion. Patient's CT recently shows bilateral lumbar hardware loosening correlating with patient's worsening symptoms. Patient failed multiple conservative management with worsening pain in his back.? Patient has been having difficulty performing activity of daily living.? After discussing risks benefits of treatment options, patient elected proceed with surgery. Surgeon: Eli Victoria Button Buttonhole Marker: Cari Lozano Click Yes if Unassisted: No Anesthesia Type: General Operative Notes Closure Type: primary Specimen(s): none sent Prosthetic devices, grafts, tissues, transplants, or devices: Globus CREO MIS screws Estimated Blood Loss (mL): 10 Blood products transfused: none She was admitted to the hospital for the above-mentioned procedure. Patient consented to the same. Patient underwent lumbar fusion August 17, 2022. Patient back in his room recovering well as in stable condition. Patient had difficulty urinating overnight found to have urinary retention and catheter placed this morning. Catheter was discontinued and patient was started on Flomax. Patient has been urinating well. Pain is well managed. Patient will be discharged home today in stable condition. Status at Discharge Cognitive/behavioral status at discharge: at baseline, oriented Functional status at discharge: uses cane/walker Overall status at discharge: patient is progressing back to baseline Exam Vital Signs (past 8 hours): - 08/18/22 07:00 Temperature 97.1 F L Pulse Rate 80 Respiratory Rate 17 Blood Pressure 136/87 Pulse Oximetry 98 Oxygen Flow Rate 0 Oxygen Delivery Method Room Air Oxygen Flow Rate 0 Narrative Exam Narrative: See progress note Const General: cooperative and comfortable Nutritional Appearance: average body habitus PFSH Medical History Anxiety BPH (benign prostatic hyperplasia) CAD (coronary artery disease) Colon cancer (2018) Depression Hearing impaired HLD (hyperlipidemia) HTN (hypertension) Hx of tongue cancer (2019) Hypothyroidism Kidney stone (~10/10/21) Kidney stones Lung cancer (2019) Lymph node cancer (2019) Neuropathy MARVIN (obstructive sleep apnea) Spinal stenosis Surgical History H/O vasectomy History of colon resection (2017) History of lobectomy of lung (2018) History of lumbar spinal fusion History of lumbar spinal fusion (10/16/21) Hx of appendectomy (2016) Hx of laminectomy (2007) Hx of laminectomy Hx of laminectomy Hx of lithotripsy Hx of tonsillectomy S/P CABG x 5 (2006) Social History household members: significant other Smoking Status: Never smoker alcohol intake: former Discharge Assessment & Plan Assessment and Plan Assessment: Patient progressing as expected status post lumbar fusion. Plan of Treatment: Continue Flomax 1 per day x5 days follow-up with urologist as needed Limit bending, twisting, lifting Discharge home today in stable condition Discharge Plan Discharge Plan Patient Disposition: Home Discharge orders & Medications Prescriptions: New acetaminophen 325 mg Tablet 650 mg PO Q6H PRN (Reason: Fever/Mild Pain (1-3)) Qty: 60 0RF polyethylene glycol 3350 17 gram Powder In Packet 17 g PO DAILY PRN (Reason: Constipation) Qty: 14 0RF tamsulosin [Flomax] 0.4 mg Capsule 0.4 mg PO DAILY Qty: 5 0RF oxycodone 5 mg Tablet 5 mg PO Q3H PRN (Reason: Pain, Moderate (4-6)) Qty: 45 0RF hydroxyzine pamoate 25 mg Capsule 25 mg PO Q4HR PRN (Reason: Nausea And Vomiting) Qty: 20 0RF Continued citalopram 40 mg Tablet 20 mg PO QAM triamcinolone acetonide 0.1 % Cream 1 applic TOPICAL DAILY levothyroxine 112 mcg Tablet 112 mcg PO DAILY Livalo 2 mg Tablet 2 mg PO QAM Discontinued acetaminophen 500 mg Tablet 1,000 mg PO Q6H PRN (Reason: Pain) Follow up/Referrals: Bobby Blake DO [Primary Care Provider] - Eli Victoria MD [Physician] - As previously scheduled (2 weeks as scheduled) Diet/Activity/Treatments Diet: Diet as Tolerated Activity: Limit bending, twisting, lifting Cold/Heat Therapy: Ice to back as needed Skin/Wound/Dressing Care Report to your healthcare provider any signs of infection, such as:: chills, fever, night sweats, increased pain, unusual drainage and unusual redness Dressing: Keep dressing clean and dry Visit Report/Discharge Packet Instructions: DI for Prescription Opioid Use, DI for Transforaminal Lumbar Interbody Fusion Stand Alone Forms: Patient Portal/API, Stroke Signs & Symptoms, Surgery Discharge Discharge Data Primary Care Provider: Bobby Blake
== END 2022-08-18 14:30 | disposition home or self-care (01) | DRG 460 ==
PROVIDERS: Admitting Provider Orthopaedic Surgery Orthopaedic Surgery of the Spine; PCP Family Medicine; Referring Provider Orthopaedic Surgery Orthopaedic Surgery of the Spine; Visit Provider Orthopaedic Surgery Orthopaedic Surgery of the Spine
PROC: 0SG3071 Fusion of Lumbosacral Joint with Autologous Tissue Substitute, Posterior Approach, Posterior Column, Open Approach (ICD-10-PCS; principal; 2022-08-17 11:45)
DX: T84.038A Mechanical loosening of other internal prosthetic joint, initial encounter (principal); M96.0 Pseudarthrosis after fusion or arthrodesis; M54.16 Radiculopathy, lumbar region; M96.1 Postlaminectomy syndrome, not elsewhere classified; R33.9 Retention of urine, unspecified; E78.5 Hyperlipidemia, unspecified; E03.9 Hypothyroidism, unspecified; F32.A Depression, unspecified; Z98.1 Arthrodesis status; Z20.822 Contact with and (suspected) exposure to COVID-19
CPT/HCPCS: 72100; 76000; 97161; C9290; J0171; J0690; J1170; J2060; J2250; J3010

== ENCOUNTER 2023-12-20 15:51 | Inpatient (IN) | payer MEDICARE, SELFPAY ==
[2022-08-17 15:57] VITALS: BMI 28.0
[2023-12-20] VITALS (40 sets, daily range): BP systolic 109–167; BP diastolic 72–93; PULSE 93–124; RESP 11–36; TEMP 36.2–37.2; O2SAT 95–99; BMI 22.6
--- NOTE | 2023-12-20 16:20 | DI.RAD.S_ITS ---
PROCEDURE: XR SOFT TISSUE NECK INDICATIONS: swelling TECHNIQUE: 2 views of the neck were acquired. COMPARISON: [place], [place], [place] PET CT FUSION SKULL 2 THIGH, 09/08/2023, 9:21. FINDINGS: Airway: The airway is narrowed by a diffuse mass involving the base of the tongue centered at C2 and C2-C3. Soft tissues: Diffuse soft tissue mass involving the base of the tongue. Prevertebral soft tissues are normal in thickness. The epiglottis and aryepiglottic folds appear normal. No soft tissue gas. Extensive upper neck clips. Bones: No suspicious bony lesions. Visualized cervical spine is normally aligned. Mandibular ORIF hardware. IMPRESSION: Diffuse soft tissue mass involving the base of the tongue narrows the airway centered at C2 and C2-C3. Comment: Consider neck CT with contrast. Dictated by: Howard Joshi M.D. on 12/20/2023 at 17:06 Approved by: Howard Joshi M.D. on 12/20/2023 at 17:09
--- NOTE | 2023-12-20 16:24 | ED.GENADULT ---
HPI - General Adult General Chief complaint: Shortness of Breath/Dyspnea Stated complaint: no tongue, feels like swelling to throat Time Seen by Provider: 12/20/23 16:07 Source: patient Mode of arrival: Ambulatory Limitations: no limitations History of Present Illness HPI narrative: 73-year-old male with recent history of oral cancer had partial tongue resection well as portion of the palate and unclear but possibly part of the airway patient had a tracheostomy this was removed on December 01. Patient noted today that he had increasing swelling and difficulty with breathing. Noted his seemed more swollen. Patient has had some difficulty swallowing his secretions but able to swallow some, was in touch with home health care, visiting nurse evaluated the patient and told him to come to be evaluated. Also notes some redness extending midline over the neck as well as swelling up towards the chin. Patient can not speak secondary to his prior surgeries but can yes no. He was able to ambulate in the department but indicates it is hard to breathe. Denies any difficulty breathing in his chest, denies any chest pain, denies any nausea or vomiting or GI or urinary symptoms. Patient was following with Dr. Nino through [facility] for his ENT care. Patient states no radiation or chemotherapy only surgical treatment for his cancer. Has not allergy to ketamine but describes it as hallucinations not rash or hives. He is accompanied by his . Related Data Home Medications Medication Instructions Recorded Confirmed citalopram 40 mg tablet 20 mg PO QAM 10/10/21 08/17/22 levothyroxine 112 mcg tablet 112 mcg PO DAILY 10/10/21 08/17/22 pitavastatin calcium 2 mg tablet 2 mg PO QAM 10/10/21 08/17/22 (Livalo) triamcinolone acetonide 0.1 % 1 applic topical DAILY Dry skin 10/10/21 08/17/22 topical cream Previous Rx's Medication Instructions Recorded acetaminophen 325 mg tablet 650 mg (2 x 325 mg) PO Q6H PRN 08/18/22 Fever/Mild Pain (1-3) #60 tabs hydroxyzine pamoate 25 mg capsule 25 mg PO Q4HR PRN Nausea And 08/18/22 Vomiting #20 caps oxycodone 5 mg tablet 5 mg PO Q3H PRN Pain, Moderate 08/18/22 (4-6) #45 tabs polyethylene glycol 3350 17 gram 17 g PO DAILY PRN Constipation #14 08/18/22 oral powder packet ea tamsulosin 0.4 mg capsule (Flomax) 0.4 mg PO DAILY #5 caps 08/18/22 Allergies Allergy/AdvReac Type Severity Reaction Status Date / Time rosuvastatin [From Crestor] Allergy Severe Fatigued Verified 08/17/22 09:56 latex Allergy Mild Rash Verified 10/17/21 11:46 ketamine AdvReac Severe Hallucinati Verified 10/17/21 11:46 ng morphine AdvReac Mild Makes me Verified 10/17/21 11:46 feel a little lethargic Review of Systems Review of Systems ROS Unobtainable: All systems reviewed & are unremarkable except as noted in HPI and below Patient History Medical History Anxiety Depression BPH (benign prostatic hyperplasia) 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) Colon cancer (2018) Hypothyroidism Kidney stone (~10/10/21) Kidney stones HLD (hyperlipidemia) HTN (hypertension) Lung cancer (2018) MARVIN (obstructive sleep apnea) Hearing impaired Neuropathy Spinal stenosis CAD (coronary artery disease) Surgical History History of lumbar spinal fusion (10/16/21) History of colon resection (2017) Hx of laminectomy Hx of laminectomy Hx of tonsillectomy Hx of lithotripsy H/O vasectomy Hx of appendectomy (2016) S/P CABG x 5 (2006) History of lobectomy of lung (2019) Hx of laminectomy (2007) History of lumbar spinal fusion Social History household members: significant other Smoking Status: Never smoker alcohol intake: former Smoking Status: Never smoker Substance Use Type: marijuana Exam Narrative Exam Narrative: GEN: well nourished, elderly male, alert and oriented x 3, patient appears to be in moderate distress. HEENT: Atraumatic, pupils are equal round reactive to light, extraocular movements are intact, nares are clear, TMs are clear with no fluid, there is no conjunctival pallor. Patient has swelling of the tongue, unable to visualize the posterior throat, patient has mild swelling underneath the chin but does have obvious swelling and erythema extending over the trachea down words towards his tracheostomy site. Tracheostomy site appears to be healing there is some pink granulation tissue but appears closed. No accessory muscle use. Patient is using suction intermittently but able to swallow some secretions. Patient is able to lay back at about 20-30 degree angle. Have not attempted to light patient back farther. No tripoding. No stridor. HEART: Regular rate and rhythm without murmur, clicks, rubs. LUNGS:Lungs clear to auscultation, no wheezes, rales, crackles, chest moves symmetrically ABD:bowel sounds normal, soft, non-tender, no guarding, rebound, rigidity, no masses noted, no hepatosplenomegal MSCL: Full range of motion, normal gait NEURO:CN 2-12 intact, sensation normal Initial Vital Signs Initial Vital Signs: Vital Signs Temperature 98.9 F 12/20/23 15:58 Pulse Rate 102 H 12/20/23 15:58 Respiratory Rate 18 12/20/23 15:58 Blood Pressure 128/78 12/20/23 15:58 Pulse Oximetry 99 12/20/23 15:58 Oxygen Delivery Method Room Air 12/20/23 15:58 Course Orders Ordered: ED Orders 12/20/23 16:20 XR soft tissue neck Stat Complete Blood Count AUTO DIFF Stat Comprehensive Metabolic Panel Stat Lactate (Lactic Acid) Stat Procalcitonin Stat Troponin & CK Cardiac Panel Stat 12/20/23 16:30 Blood Culture Stat Discontinued Medications Epinephrine (Racepinephrine 0.5 Ml Neb) 0.5 ml INH NOW ONE Stop: 12/20/23 16:23 Last Admin: 12/20/23 16:53 Dose: 0.5 ml Documented By: DS Epinephrine (Racepinephrine 0.5 Ml Neb) 0.5 ml INH NOW ONE Stop: 12/20/23 16:23 Last Admin: 12/20/23 16:30 Dose: 0.5 ml Documented By: DS Dexamethasone 20 mg/ Sodium (Chloride) 55 mls @ 220 mls/hr IV NOW ONE Stop: 12/20/23 16:21 Last Infusion: 12/20/23 17:11 Dose: Infused Documented By: Admin: 12/20/23 16:49 Dose: 220 mls/hr Documented By: MPO Sodium Chloride (Normal Saline 0.9%) 1,000 mls @ 1,000 mls/hr IV BOLUS ONE Stop: 12/20/23 17:19 Last Infusion: 12/20/23 17:48 Dose: Infused Documented By: Admin: 12/20/23 16:38 Dose: 1,000 mls/hr Documented By: MPO Piperacillin Sod/Tazobactam (Sod 4.5 gm/ Sodium Chloride) 100 mls @ 200 mls/hr IV NOW ONE Stop: 12/20/23 16:25 Last Infusion: 12/20/23 17:11 Dose: Infused Documented By: Admin: 12/20/23 16:37 Dose: 200 mls/hr Documented By: MPO Lidocaine HCl (Lidocaine 2% Inj Sdv 5ml) 3.5834 ml 0.05 ml/kg (3.5834 ml) INH NOW ONE Stop: 12/20/23 17:15 Last Admin: 12/20/23 17:19 Dose: 1 ml Documented By: MPO Lidocaine HCl (Lidocaine 4% Soln 50 Ml) 20 ml TOP NOW ONE Stop: 12/20/23 17:30 Last Admin: 12/20/23 17:48 Dose: 20 ml Documented By: MPO Oxymetazoline HCl (Oxymetazoline Nasal [place] 30 Ml) 2 sprays NASAL NOW ONE Stop: 12/20/23 17:14 Last Admin: 12/20/23 17:20 Dose: 2 sprays Documented By: MPO Oxymetazoline HCl (Oxymetazoline Nasal [place] 30 Ml) 2 sprays NASAL NOW ONE Stop: 12/20/23 17:15 Last Admin: 12/20/23 17:52 Dose: Not Given Documented By: MPO Vital Signs Vital signs: Vital Signs - 8 hr 12/20/23 15:58 12/20/23 16:20 12/20/23 16:25 Temperature 98.9 F Pulse Rate 102 H 102 H 94 H Respiratory Rate 18 17 Blood Pressure 128/78 Pulse Oximetry 99 98 98 Oxygen Delivery Method Room Air Fraction of Inspired Oxygen 12/20/23 16:30 12/20/23 16:35 12/20/23 16:40 Temperature Pulse Rate 95 H 95 H 97 H Respiratory Rate 18 19 23 Blood Pressure Pulse Oximetry 98 98 97 Oxygen Delivery Method Fraction of Inspired Oxygen 12/20/23 16:43 12/20/23 16:43 12/20/23 16:45 Temperature Pulse Rate 95 H 93 H Respiratory Rate 20 24 Blood Pressure 145/80 H Pulse Oximetry 97 97 Oxygen Delivery Method Room Air Fraction of Inspired Oxygen 12/20/23 16:50 12/20/23 16:55 12/20/23 16:55 Temperature Pulse Rate 93 H 103 H 103 H Respiratory Rate 20 16 20 Blood Pressure Pulse Oximetry 98 99 98 Oxygen Delivery Method Room Air Fraction of Inspired Oxygen 0.21 12/20/23 17:00 12/20/23 17:05 12/20/23 17:10 Temperature Pulse Rate 100 H 100 H 108 H Respiratory Rate 22 19 36 H Blood Pressure Pulse Oximetry 98 98 97 Oxygen Delivery Method Fraction of Inspired Oxygen 12/20/23 17:15 12/20/23 17:20 12/20/23 17:25 Temperature Pulse Rate 108 H 106 H 103 H Respiratory Rate 30 H 28 H 25 H Blood Pressure Pulse Oximetry 98 99 99 Oxygen Delivery Method Fraction of Inspired Oxygen 12/20/23 17:30 12/20/23 17:35 Temperature Pulse Rate 100 H 98 H Respiratory Rate 22 24 Blood Pressure Pulse Oximetry 98 98 Oxygen Delivery Method Fraction of Inspired Oxygen Medical Decision Making Lab Data 12/20/23 16:20 12/20/23 16:20 Labs: Lab Results 12/20/23 Range/Units 16:20 WBC 11.2 H (4.5-11.0) X10^3/uL RBC 3.61 L (4.5-5.9) X10^6/uL Hgb 11.1 L (13.5-17.5) g/dL Hct 33.6 L (41-53) % MCV 93.1 (80-100) fL MCH 30.8 (26-34) PG MCHC 33.1 (30-36) % RDW 16.8 H (11.6-14.8) % Plt Count 359 (150-400) X10^3/uL Neut % (Auto) 84.7 H (50-75) % Lymph % (Auto) 7.2 L (25-40) % [place] % (Auto) 6.7 (3-14) % Eos % (Auto) 0.8 L (2-4) % Baso % (Auto) 0.6 (0-2) % Neut # (Auto) 9400 H (7104-7546) /uL Lymph # (Auto) 800 L (9064-5061) /uL [place] # (Auto) 700 (0-900) /uL Eos # (Auto) 100 (0-450) /uL Baso # (Auto) 100 (0-100) /uL Sodium 136 L (137-145) mmol/L Potassium 4.0 (3.4-5.1) mmol/L Chloride 101 (98-107) mmol/L Carbon Dioxide 26 (22-32) mmol/L BUN 23 H (9-20) mg/dL Creatinine 0.72 (0.66-1.25) mg/dL Estimated GFR > 60 (>60) mL/min BUN/Creatinine Ratio 31.9 H (6-22) Glucose 110 (80-110) mg/dL Lactate 1.1 (0.7-2.1) mmol/L Calcium 9.6 (8.4-10.2) mg/dL Total Bilirubin 0.3 (0.2-1.3) mg/dL AST 26 (17-59) IU/L ALT 20 (<50) IU/L Alkaline Phosphatase 102 (38-126) U/L Total Creatine Kinase 74 (55-170) U/L Troponin I < 0.012 (0.01-0.034) ng/mL Total Protein 7.9 (6.3-8.2) g/dL Albumin 4.5 (3.5-5.0) g/dL Globulin 3.4 (1.7-4.1) g/dL Albumin/Globulin Ratio 1.3 (1.0-2.8) Procalcitonin 0.055 (<0.5) ng/mL MDM Narrative Medical decision making narrative: 73-year-old male presents with complaint of swelling of the tongue and airway status post surgical resection of portion of tongue and throat, patient did have a tracheostomy but was removed 3 weeks ago and does not appear to be patent. On exam patient has significant swelling of the tongue unable to visualize posterior throat, he is in [id number] distress does need some assistance with secretions with suction but otherwise maintaining his airway. It was quite concerning so ENT was contacted Dr. Homer Oviedo who will come to evaluate, anesthesia was also contacted and they came to the department to evaluate patient seems to be high-risk for decompensation and requiring potential for surgical airway. Patient received dexamethasone 20 mg IV, fluids, Zosyn for suspected infection, possibly [place] as he has erythema swelling midline of the throat extending up towards the chin. Also received racemic epi. REFERENCE LIBRARY ASSISTANT [facility] in the department. Dr. Oviedo scoped the patient in the department and his request was given some Afrin and plan for nebulized lidocaine. OR crew called in. Labs show white count 11.2 hemoglobin of 11 platelets of 359. Sodium 136 potassium 4 chloride 101 CO2 26 BUN 23 creatinine 0.72, lactate of 1.1, troponins less than 0.012 with a procalcitonin 0.55. Soft tissue neck x-ray shows airway narrowed by diffuse mass involving base of the tongue centered at C2 and C2-3 prevertebral soft tissues are normal thickness epiglottic aryepiglottic folds appear normal no soft tissue gas extensive upper neck clips. CT neck with contrast was deferred concern for safety about lying patient backwards for imaging. After discussion patient felt most appropriate to be intubated in the OR. Patient is agreeable and consented to procedure, family is with patient at the bedside. Dr. Oviedo consented patient, I also spoke with the patient earlier about how this is very high-risk airway and could potentially be catastrophic be very difficult for intubation. Patient and family expressed their understanding. Recheck 1754: Patient states slightly less swelling. Does need to urinate. Just waiting for OR crew to come in. Patient does not have any additional questions currently. Dr. Oviedo at bedside with patient and patient transferred to OR with REFERENCE LIBRARY ASSISTANT. Critical Care Time Critical Care Time Critical Care Time: Yes Total Critical Care Time: 20 Attestation: The high probability of a clinically significant, sudden or life threatening deterioration of the ENT system(s) required my full and direct attention, intervention and personal management. The aggregate critical care time was [--] minutes. This time is in addition to time spent performing reported procedures but includes the following: [x] Data Review and interpretation [x] Patient assessment and monitoring of vital signs [x] Documentation [x] Medication orders and management Discharge Plan Departure Patient Disposition: Admitted to Surgery Clinical Impression: Cintia, Adrien Admit Date/Time: 12/20/23 17:38 Admit Provider: Homer Oviedo
[2023-12-20] MEDS: RACEPINEPHRINE 0.5 ML NEB INH ×2 (16:30→16:53)
[2023-12-20 16:32] LABS: Add Manual Diff / Slide Review NO; Basophils Absolute Auto 100 /uL (0-100); Basophils Percent Auto 0.6 % (0-2); Eosinophils Absolute Auto 100 /uL (0-450); Eosinophils Percent Auto 0.8 % (2-4); Hematocrit 33.6 % (41-53); Hemoglobin 11.1 g/dL (13.5-17.5); Lymphocytes Absolute Auto 800 /uL (1100-4500); Lymphocytes Percent Auto 7.2 % (25-40); Mean Corpuscular HGB Conc 33.1 % (30-36); Mean Corpuscular Hemoglobin 30.8 PG (26-34); Mean Corpuscular Volume 93.1 fL (80-100); Monocytes Absolute Auto 700 /uL (0-900); Monocytes Percent Auto 6.7 % (3-14); Neutrophils Absolute Auto 9400 /uL (1500-7000); Neutrophils Percent Auto 84.7 % (50-75); Platelet Count 359 X10^3/uL (150-400); Red Blood Cell Count 3.61 X10^6/uL (4.5-5.9); Red Cell Distribution Width 16.8 % (11.6-14.8); White Blood Cell Count 11.2 X10^3/uL (4.5-11.0)
[2023-12-20] MEDS: PIPERACILLIN/TAZO 4.5 GM in SODIUM CHLORIDE 0.9% 100 ML IV (16:37)
[2023-12-20] MEDS: SODIUM CHLORIDE 0.9% 1,000 ML 1000 ML IV (16:38)
[2023-12-20 16:49] LABS: Lactate (Lactic Acid) 1.1 mmol/L (0.7-2.1)
[2023-12-20] MEDS: dexAMETHasone 20 MG in SODIUM CHLORIDE 0.9% 50 ML 220 MG IV (16:49)
[2023-12-20 16:50] LABS: Alanine Aminotransferase 20 IU/L (<50); Albumin 4.5 g/dL (3.5-5.0); Albumin Globulin Ratio 1.3 (1.0-2.8); Alkaline Phosphatase 102 U/L (38-126); Aspartate Aminotransferase 26 IU/L (17-59); BUN Creatinine Ratio 31.9 (6-22); Bilirubin Total 0.3 mg/dL (0.2-1.3); Blood Urea Nitrogen 23 mg/dL (9-20); Calcium 9.6 mg/dL (8.4-10.2); Carbon Dioxide 26 mmol/L (22-32); Chloride 101 mmol/L (98-107); Creatine Kinase 74 U/L (55-170); Estimated Glomerular Filt Rate > 60 mL/min (>60); Globulin 3.4 g/dL (1.7-4.1); Glucose 110 mg/dL (80-110); HEMOLYSIS < 15 (0-50); Sodium 136 mmol/L (137-145); Total Protein 7.9 g/dL (6.3-8.2)
[2023-12-20 17:01] LABS: Troponin I < 0.012 ng/mL (0.01-0.034)
[2023-12-20 17:06] LABS: Procalcitonin 0.055 ng/mL (<0.5)
[2023-12-20] MEDS: LIDOCAINE 2% INJ SDV 5ML 3.5834 ML INH (17:19)
[2023-12-20] MEDS: OXYMETAZOLINE NASAL SPRAY 30 ML 2 SPRAYS NASAL (17:20)
--- NOTE | 2023-12-20 17:37 | PC.NURSE ---
Pt had tongue CA surgery at [facility] on 11/04. Pt reports that they replaced cancerous tissue with pt's own healthy tissue. Pt has had difficulty swallowing since the surgery, but this morning pt reports that he has been having increased difficulty swallowing and increased phlegm. Pt states that he did not notice the swelling in his neck until today when home health came. Pt neck red and edemetous and some edemetous tissue around previous trach site. Pt unable to lay flat and cannot put head back without coughing. Pt cannot manage secretions and drooling. Tongue swollen and unable to visualize epiglottis. Suction set up at bedside. No obvious work of breathing noted and pt stable. Dr Solomon aware of pt status and at bedside. RT called to bedside.
[2023-12-20] MEDS: LIDOCAINE 4% SOLN 50 ML 20 ML TOP (17:48)
[2023-12-20] MEDS: LIDOCAINE 1% W/EPI 20 ML INJ (18:34)
--- NOTE | 2023-12-20 19:38 | DI.CT.S_ITS ---
PROCEDURE: CT SOFT TISSUE NECK W CON INDICATIONS: post re-established trach and neck swelling/redness TECHNIQUE: After the administration of intravenous contrast, 3.0 mm axial sections acquired from the sella to the aortic arch. Additional oblique axial 3.0 mm sections acquired through the pharynx. 3 mm thick coronal and sagittal reformats were generated. For radiation dose reduction, the following was used: automated exposure control. COMPARISON: [facility], [place], [place] PET CT FUSION SKULL 2 THIGH, 09/08/2023, 9:21. [facility], [place], XR SOFT TISSUE NECK, 12/20/2023, 16:39. FINDINGS: Image quality: Excellent. Lymph nodes: No enlarged lymph nodes seen throughout the neck. Vessels: Visualized vasculature appears patent. Left jugular vein appears relatively diminutive, and portions are not well opacified with contrast material. The right jugular vein is patent. Neck spaces: Tracheostomy tube is in expected location. Tracheostomy balloon is not inflated. Postsurgical changes are seen in the oral cavity with fatty replacement of the majority of the tongue, which bulges posteriorly and appears to narrow the oropharynx. A small collection of fluid and gas is seen in the anterior midline oral cavity measuring approximately 1.9 x 1.7 by 2.0 cm (2/40 and 4/50). There is an oval hypoattenuating area at the right lingual region measuring 4.1 x 3.0 x 3.0 cm (4/44 and 5/27). Surgical clips are seen in the submandibular regions. The nasal cavity and nasopharynx are patent. Larynx appears intact. Glands: The parotid and submandibular glands appear normal. Thyroid is diminutive. Miscellaneous: Visualized brain and orbits appear normal. Lung apices appear clear. Superficial soft tissues appear normal. Surgical clips are seen in the anterior mediastinum. Sternotomy wires are present. Bones: Postsurgical changes are seen involving the right mandible with plate and screw fixation. The metal plate appears fractured anteriorly with medial displacement of the more posterior bony segment. No significant osseous fusion is seen at the more posterior osteotomy site , with mild angulation but no additional hardware fracture seen. No suspicious bony lesions. Visualized sinuses and mastoids appear unremarkable. IMPRESSION: 1. Postsurgical changes are seen involving the tongue. There is diffuse fatty replacement of the tongue. A small collection of fluid and gas is seen along the anterior tongue measuring up to 2 cm, and a small abscess is not excluded. Additionally, there is a 4.1 cm intermediate attenuation area in the right floor of mouth area suspicious for possible postoperative collection such as a hematoma or seroma versus residual hypoattenuating soft tissue. 2. Postsurgical changes in the left mandible. There appears to be fracture of the metal plate anteriorly with medial displacement of the mandibular body segment. 3. Tracheostomy tube in expected position. Approved by: Branden Woodruff M.D. on 12/20/2023 at 20:35
--- NOTE | 2023-12-20 19:45 | PM.PREOP ---
Pre-operative Note Interval Note History & Physical reviewed/Exam performed by Physician: Yes Changes to H&P: No H&P completed within 30 days and has changed as indicated here:: Urgently taken to the operating room due to airway compromise, this note was completed after.
--- NOTE | 2023-12-20 19:47 | PM.CN ---
History of Present Illness Consult details Date Patient Seen: 12/20/23 Time Patient Seen: 17:00 Chief complaint: no tongue, feels like swelling to throat Reason for consult: Airway obstruction Requesting provider: Ruth Solomon Narrative: 73-year-old male with history of multiple recurrent squamous cell carcinoma underwent total glossectomy partial mandibulectomy with scapular free flap reconstruction and right neck dissection by Dr. Theodore clark at [facility] 11/04, his tracheotomy was removed at the last postoperative appointment with Dr. Clark 11/30, note reviewed. Patient woke this morning with a sensation of swelling in his mouth and reconstructed tongue that progressed throughout the day leading to concern for complete airway obstruction. He was seen by home health and recommended ER evaluation. No recent fever, some increased pain to the reconstructed tongue. I was asked to consult urgently for evaluation including flexible laryngoscopy. I was also in contact with Dr. Clark regarding his status and airway options. The patient feels strongly that the swelling intraorally is compromising his airway and has progressed. He did receive 20 mg IV Decadron and IV Zosyn while in the emergency room. At 1 point he coughed saliva and phlegm with transient near complete obstruction but then improved. He is unable to comfortably keep his mouth open as he feels complete obstruction, his breathing only through his nose. His 6. Tracheotomy was removed almost 3 weeks ago, no airway concerns up until this morning. Meds Home Medications and Allergies Home Medications Medication Instructions Recorded Confirmed Type citalopram 40 mg tablet 20 mg PO QAM 10/10/21 08/17/22 History levothyroxine 112 mcg tablet 112 mcg PO DAILY 10/10/21 08/17/22 History pitavastatin calcium 2 mg tablet 2 mg PO QAM 10/10/21 08/17/22 History (Livalo) triamcinolone acetonide 0.1 % 1 applic topical DAILY Dry skin 10/10/21 08/17/22 History topical cream acetaminophen 325 mg tablet 650 mg (2 x 325 mg) PO Q6H PRN 08/18/22 Rx Fever/Mild Pain (1-3) #60 tabs hydroxyzine pamoate 25 mg capsule 25 mg PO Q4HR PRN Nausea And 08/18/22 Rx Vomiting #20 caps oxycodone 5 mg tablet 5 mg PO Q3H PRN Pain, Moderate 08/18/22 Rx (4-6) #45 tabs polyethylene glycol 3350 17 gram 17 g PO DAILY PRN Constipation #14 08/18/22 Rx oral powder packet ea tamsulosin 0.4 mg capsule (Flomax) 0.4 mg PO DAILY #5 caps 08/18/22 Rx Allergies Allergy/AdvReac Type Severity Reaction Status Date / Time rosuvastatin [From Crestor] Allergy Severe Fatigued Verified 08/17/22 09:56 latex Allergy Mild Rash Verified 10/17/21 11:46 ketamine AdvReac Severe Hallucinati Verified 10/17/21 11:46 ng morphine AdvReac Mild Makes me Verified 10/17/21 11:46 feel a little lethargic Review of Systems Review of Systems Narrative: Negative except as listed in the HPI Exam Vital Signs (past 8 hours): - 12/20/23 15:58 12/20/23 16:20 12/20/23 16:25 Temperature 98.9 F Pulse Rate 102 H 102 H 94 H Respiratory Rate 18 17 Blood Pressure 128/78 Pulse Oximetry 99 98 98 Oxygen Delivery Method Room Air Fraction of Inspired Oxygen 12/20/23 16:30 12/20/23 16:35 12/20/23 16:40 Temperature Pulse Rate 95 H 95 H 97 H Respiratory Rate 18 19 23 Blood Pressure Pulse Oximetry 98 98 97 Oxygen Delivery Method Fraction of Inspired Oxygen 12/20/23 16:43 12/20/23 16:43 12/20/23 16:45 Temperature Pulse Rate 95 H 93 H Respiratory Rate 20 24 Blood Pressure 145/80 H Pulse Oximetry 97 97 Oxygen Delivery Method Room Air Fraction of Inspired Oxygen 12/20/23 16:50 12/20/23 16:55 12/20/23 16:55 Temperature Pulse Rate 93 H 103 H 103 H Respiratory Rate 20 16 20 Blood Pressure Pulse Oximetry 98 99 98 Oxygen Delivery Method Room Air Fraction of Inspired Oxygen 0.21 12/20/23 17:00 12/20/23 17:05 12/20/23 17:10 Temperature Pulse Rate 100 H 100 H 108 H Respiratory Rate 22 19 36 H Blood Pressure Pulse Oximetry 98 98 97 Oxygen Delivery Method Fraction of Inspired Oxygen 12/20/23 17:15 12/20/23 17:20 12/20/23 17:25 Temperature Pulse Rate 108 H 106 H 103 H Respiratory Rate 30 H 28 H 25 H Blood Pressure Pulse Oximetry 98 99 99 Oxygen Delivery Method Fraction of Inspired Oxygen 12/20/23 17:30 12/20/23 17:35 12/20/23 17:40 Temperature Pulse Rate 100 H 98 H 100 H Respiratory Rate 22 24 20 Blood Pressure Pulse Oximetry 98 98 98 Oxygen Delivery Method Fraction of Inspired Oxygen 12/20/23 17:45 12/20/23 17:50 12/20/23 17:55 Temperature Pulse Rate 98 H 98 H 98 H Respiratory Rate 19 19 19 Blood Pressure Pulse Oximetry 97 97 97 Oxygen Delivery Method Fraction of Inspired Oxygen 12/20/23 18:00 12/20/23 18:01 12/20/23 18:01 Temperature Pulse Rate 105 H 105 H Respiratory Rate 15 Blood Pressure 153/83 H Pulse Oximetry 97 97 Oxygen Delivery Method Fraction of Inspired Oxygen 12/20/23 18:05 12/20/23 18:10 12/20/23 19:19 Temperature 98.3 F Pulse Rate 100 H 100 H 100 H Respiratory Rate 19 22 21 Blood Pressure 113/74 Pulse Oximetry 97 96 95 Oxygen Delivery Method Room Air Fraction of Inspired Oxygen 12/20/23 19:29 12/20/23 19:36 12/20/23 19:41 Temperature 98.7 F Pulse Rate 95 H 97 H 101 H Respiratory Rate 18 19 18 Blood Pressure 119/75 109/74 124/72 Pulse Oximetry 98 95 96 Oxygen Delivery Method Room Air Room Air Room Air Fraction of Inspired Oxygen Fraction of Inspired Oxygen 0.21 SaO2/FiO2 Ratio 58381 Oxygen Delivery Method Room Air Narrative Exam Narrative: Well-developed well-nourished male, initially comfortable, exclusively breathing through his nose but at times significant airway distress and anxiety if he coughs. Alert and communicative with some garbled speech otherwise he writes. Ear exam is normal, nose is patent [id number]-left. 2-3 cm trismus, reconstructed tongue/free flap is slightly pale and moderately firm, 3-4 second capillary refill. Unable to see the posterior pharynx, palpation of the reconstructed tongue causes more significant obstruction. Neck incisions with a few areas of eschar, some erythema anteriorly and new swelling per family leading down to the tracheotomy stomal scar with scant granulation. Objective Labs 12/20/23 16:20 12/20/23 16:20 Labs: Laboratory Results - last 24 hr 12/20/23 16:20 WBC 11.2 H RBC 3.61 L Hgb 11.1 L Hct 33.6 L MCV 93.1 MCH 30.8 MCHC 33.1 RDW 16.8 H Plt Count 359 Neut % (Auto) 84.7 H Lymph % (Auto) 7.2 L [place] % (Auto) 6.7 Eos % (Auto) 0.8 L Baso % (Auto) 0.6 Neut # (Auto) 9400 H Lymph # (Auto) 800 L [place] # (Auto) 700 Eos # (Auto) 100 Baso # (Auto) 100 Sodium 136 L Potassium 4.0 Chloride 101 Carbon Dioxide 26 BUN 23 H Creatinine 0.72 Estimated GFR > 60 BUN/Creatinine Ratio 31.9 H Glucose 110 Lactate 1.1 Calcium 9.6 Total Bilirubin 0.3 AST 26 ALT 20 Alkaline Phosphatase 102 Total Creatine Kinase 74 Troponin I < 0.012 Total Protein 7.9 Albumin 4.5 Globulin 3.4 Albumin/Globulin Ratio 1.3 Procalcitonin 0.055 PFSH Medical History Anxiety Depression BPH (benign prostatic hyperplasia) 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) Colon cancer (2018) Hypothyroidism Kidney stone (~10/10/21) Kidney stones HLD (hyperlipidemia) HTN (hypertension) Lung cancer (2019) MARVIN (obstructive sleep apnea) Hearing impaired Neuropathy Spinal stenosis CAD (coronary artery disease) Surgical History History of lumbar spinal fusion (10/16/21) History of colon resection (2018) Hx of laminectomy Hx of laminectomy Hx of tonsillectomy Hx of lithotripsy H/O vasectomy Hx of appendectomy (2016) S/P CABG x 5 (2006) History of lobectomy of lung (2019) Hx of laminectomy (2007) History of lumbar spinal fusion Social History household members: significant other Tobacco & Substance Use Smoking Status: Never smoker alcohol intake: former Assessment & Plan Assessment & Plan narrative: Assessment: Progressive airway obstruction of unknown etiology following total glossectomy and scapular free flap reconstruction 6 weeks ago, concern for progressive infection versus abscess. No obvious arterial flap compromise. Plan: After detailed discussion of the material risks benefits complications and alternatives, the patient agreed to operative control of his airway, either reopening of the tracheal stoma to establish tracheotomy versus nasotracheal intubation. After discussion with the surgeon Dr. Theodore clark, the recommendation was to proceed with opening of the prior tracheal stomal scar and reestablish the airway if possible. Time-Based Coding :: [TOTAL MINUTES] spent with patient and on the chart (including review of chart, obtaining history, exam, reviewing outside data, placing orders, documenting exam and treatment plan, and counseling patient) on [DATE].
--- NOTE | 2023-12-20 19:59 | P.OP_ITS ---
Operative Date/Time/Diagnoses Date of procedure: 12/20/23 Time of procedure: 19:11 Pre-op diagnosis: Progressive airway obstruction, history of prior glossectomy and scapular free flap reconstruction with tracheotomy, possible acute infection/abscess Post-op diagnosis: same Procedure & Clinicians Procedure: Tracheotomy under local anesthesia Same procedure as scheduled: Yes Indications: 73-year-old male with the above indications presents for operative control of his airway due to impending obstruction. Following discussion of the material risks benefits complications and alternatives, he elected to proceed. Surgeon: Homer Oviedo Click Yes if Unassisted: Yes Anesthesia Type: Sedation and Local Operative Notes Findings: Scarred prior tracheostoma, able to bluntly dilate superior to the prior Kiki flap and eventually enter the trachea, #4 Cuffed non inflated tracheostomy tube placed Estimated Blood Loss (mL): 2 Complications: none Post-operative Condition: stable Disposition: ICU Plan for aftercare: As discussed with the original surgeon Dr. Nino and the tele hospitalist at [facility], the original plan was to transfer to [facility] for further care. However there is currently no bed availability so he will be kept at [facility] in the ICU, ideally kept on the wait list for [facility]. Neck CT with contrast is the next step, continue IV antibiotics, already received 20 mg IV Decadron in the emergency room earlier this evening. The patient and family agree with the plan, understand and are appreciative.
--- NOTE | 2023-12-20 20:20 | PM.OP.1 ---
Operative Date/Time/Diagnoses Date of procedure: 12/20/23 Time of procedure: 17:30 Pre-op diagnosis: Airway obstruction, history of glossectomy, free flap reconstruction, new swelling Post-op diagnosis: same Procedure & Clinicians Procedure: Flexible laryngoscopy Same procedure as scheduled: Yes Indications: 73 Year old with the above diagnoses presents for the above procedure. Following discussion of the material risks benefits complications and alternatives, the patient elected to proceed. Surgeon: Homer Oviedo Click Yes if Unassisted: Yes Anesthesia Type: None Operative Notes Findings: Patent right nasal cavity, normal nasopharynx. Scapular free flap reconstructing the tongue is slightly pale, completely obstructs the pharynx with mouth open, with mouth closed there is a cm or less clearance with the posterior pharyngeal wall. Normal epiglottis arytenoids normally mobile true vocal cords without lesion. Procedure in detail: The flexible fiberoptic laryngoscope was placed through the right nasal cavity with the above findings as noted. Tolerated well without known complication. Complications: none Post-operative Condition: stable Disposition: other Plan for aftercare: Eventually to the operating room for operative control of his airway.
--- NOTE | 2023-12-20 20:32 | SUR.PHASEI ---
Pt to CT - then transferred to room 229. bedside report reviewed with RN
--- NOTE | 2023-12-20 20:35 | SUR.PHASEI ---
Sister Karin Neff [phone]
[2023-12-20] MEDS: LORazepam 0.5 MG TABLET PO (21:49)
[2023-12-20] MEDS: LACTATED RINGERS 1,000 ML 70 ML IV (21:49)
[2023-12-20 21:55] LABS: Appearance Urine UA CLEAR; Bilirubin Urine UA NEGATIVE (NEGATIVE); Color Urine UA YELLOW; Glucose Urine UA NEGATIVE (Negative); Ketones Urine UA NEGATIVE (NEGATIVE); Leukocyte Esterase Urine UA NEGATIVE (NEGATIVE); Nitrite Urine UA NEGATIVE (Negative); Occult Blood Urine UA NEGATIVE (Negative); Protein Urine UA NEGATIVE (Negative); Urobilinogen Urine UA 0.2 E.U./dL (0.2); pH Urine UA 7.5 (4.5-8.0)
[2023-12-20 22:03] LABS: Bacteria Urine None Seen; Culture Indicated Urine Cult Not Indicated; RBC Urine None Seen (0-5/HPF); Squamous Epithelial Cell Urine None Seen (0-5/HPF); Urine Volume 10mL (spun); WBC Urine 0-1/HPF (0-5/HPF)
[2023-12-20 23:31] LABS: MRSA (Nasal) PCR NOT DETECTED (Not Detect)
[2023-12-21] VITALS: BP 146/83; PULSE 93; RESP 16; TEMP 36.5; O2SAT 96
[2023-12-21 04:00] VITALS: BP 128/84; PULSE 103; RESP 22; TEMP 35.8; O2SAT 97
[2023-12-21 04:07] LABS: Add Manual Diff / Slide Review NO; Basophils Absolute Auto 0 /uL (0-100); Basophils Percent Auto 0.4 % (0-2); Eosinophils Absolute Auto 0 /uL (0-450); Hematocrit 33.2 % (41-53); Hemoglobin 11.2 g/dL (13.5-17.5); Lymphocytes Absolute Auto 500 /uL (1100-4500); Lymphocytes Percent Auto 5.1 % (25-40); Mean Corpuscular HGB Conc 33.8 % (30-36); Mean Corpuscular Hemoglobin 31.4 PG (26-34); Monocytes Absolute Auto 100 /uL (0-900); Monocytes Percent Auto 1.3 % (3-14); Neutrophils Absolute Auto 9100 /uL (1500-7000); Neutrophils Percent Auto 93.2 % (50-75); Platelet Count 370 X10^3/uL (150-400); Red Blood Cell Count 3.57 X10^6/uL (4.5-5.9); Red Cell Distribution Width 16.9 % (11.6-14.8); White Blood Cell Count 9.8 X10^3/uL (4.5-11.0)
[2023-12-21 04:22] LABS: Alanine Aminotransferase 57 IU/L (<50); Albumin 4.2 g/dL (3.5-5.0); Albumin Globulin Ratio 1.3 (1.0-2.8); Alkaline Phosphatase 101 U/L (38-126); Aspartate Aminotransferase 28 IU/L (17-59); BUN Creatinine Ratio 29.2 (6-22); Bilirubin Total 0.5 mg/dL (0.2-1.3); Blood Urea Nitrogen 21 mg/dL (9-20); Calcium 9.9 mg/dL (8.4-10.2); Carbon Dioxide 25 mmol/L (22-32); Chloride 103 mmol/L (98-107); Estimated Glomerular Filt Rate > 60 mL/min (>60); Globulin 3.3 g/dL (1.7-4.1); Glucose 158 mg/dL (80-110); HEMOLYSIS < 15 (0-50); Potassium 4.9 mmol/L (3.4-5.1); Sodium 136 mmol/L (137-145); Total Protein 7.5 g/dL (6.3-8.2)
--- NOTE | 2023-12-21 06:09 | PM.HP.1 ---
History of Present Illness History of Present Illness Date Patient Seen: 12/20/23 Time Patient Seen: 20:30 Chief complaint: no tongue, feels like swelling to throat Narrative: 73 years old male with a past medical history of multiple squamous cell carcinoma status post glossectomy with partial mandibulectomy and scapular free flap reconstruction and right neck dissection by Dr. Theodore Nino at [facility] with subsequent tracheostomy and removal was brought to the emergency room for significant edema of the reconstructed tongue that was progressive. Denies any fever episodes but did have difficulty with breathing. Denies any bloody diplopia. No trauma. Denies any chest pain nausea vomiting. ENT was consulted urgently for possible airway obstruction and subsequently initiated on IV Decadron/IV Zosyn while in the emergency room. Patient underwent tracheotomy with #4 cuffed noninfected tracheostomy tube placement. Airway was secured and patient was admitted to the ICU pending transfer to [facility]. [facility] Medical History Anxiety Depression BPH (benign prostatic hyperplasia) Lymph node cancer (2019) Hx of tongue cancer (2018) Colon cancer (2017) Hypothyroidism Kidney stone (~10/10/21) Kidney stones HLD (hyperlipidemia) HTN (hypertension) Lung cancer (2019) MARVIN (obstructive sleep apnea) Hearing impaired Neuropathy Spinal stenosis CAD (coronary artery disease) Surgical History History of lumbar spinal fusion (10/16/21) History of colon resection (2017) Hx of laminectomy Hx of laminectomy Hx of tonsillectomy Hx of lithotripsy H/O vasectomy Hx of appendectomy (2016) S/P CABG x 5 (2006) History of lobectomy of lung (2019) Hx of laminectomy (2007) History of lumbar spinal fusion Social History household members: significant other Smoking Status: Never smoker alcohol intake: former Meds Home Medications and Allergies Home Medications Medication Instructions Recorded Confirmed Type levothyroxine 112 mcg tablet 112 mcg PO DAILY 10/10/21 12/20/23 History acetaminophen 325 mg tablet 650 mg (2 x 325 mg) PO Q6H PRN 08/18/22 12/20/23 Rx Fever/Mild Pain (1-3) #60 tabs duloxetine 60 mg capsule,delayed 60 mg PO DAILY 12/20/23 12/20/23 History release lorazepam 2 mg/mL oral concentrate 2 mg PO TID PRN Anxiety 12/20/23 12/20/23 History (Lorazepam Intensol) Allergies Allergy/AdvReac Type Severity Reaction Status Date / Time rosuvastatin [From Crestor] Allergy Severe Fatigued Verified 08/17/22 09:56 latex Allergy Mild Rash Verified 10/17/21 11:46 ketamine AdvReac Severe Hallucinati Verified 10/17/21 11:46 ng morphine AdvReac Mild Makes me Verified 10/17/21 11:46 feel a little lethargic Review of Systems Review of Systems Narrative: A 12 point review of system is negative unless otherwise stated in the history of present illness Exam Vital Signs (past 8 hours): - 12/20/23 22:21 12/20/23 22:30 12/20/23 22:31 Temperature Pulse Rate 95 H Respiratory Rate Blood Pressure Pulse Oximetry 97 Oxygen Delivery Method Room Air Room Air Room Air Oxygen Flow Rate 0 Fraction of Inspired Oxygen 21 12/20/23 22:31 12/21/23 00:00 12/21/23 00:00 Temperature 97.7 F Pulse Rate 95 H 93 H Respiratory Rate 18 16 Blood Pressure 146/83 H Pulse Oximetry 97 96 Oxygen Delivery Method Room Air Oxygen Flow Rate 0 0 Fraction of Inspired Oxygen 12/21/23 04:00 12/21/23 04:00 Temperature 96.5 F L Pulse Rate 103 H Respiratory Rate 22 Blood Pressure 128/84 Pulse Oximetry 97 Oxygen Delivery Method Oxygen Flow Rate 0 Fraction of Inspired Oxygen Fraction of Inspired Oxygen 21 SaO2/FiO2 Ratio 461 Oxygen Delivery Method Room Air Oxygen Flow Rate 0 Narrative Exam Narrative: Patient is nonverbal but able to communicate with return medications Tracheostomy in place with no active bleeding Air entry decreased at the base Objective Labs 12/21/23 03:18 12/21/23 03:18 Labs: Laboratory Results - last 24 hr 12/20/23 12/20/23 12/20/23 16:20 20:39 21:33 WBC 11.2 H RBC 3.61 L Hgb 11.1 L Hct 33.6 L MCV 93.1 MCH 30.8 MCHC 33.1 RDW 16.8 H Plt Count 359 Neut % (Auto) 84.7 H Lymph % (Auto) 7.2 L [place] % (Auto) 6.7 Eos % (Auto) 0.8 L Baso % (Auto) 0.6 Neut # (Auto) 9400 H Lymph # (Auto) 800 L [place] # (Auto) 700 Eos # (Auto) 100 Baso # (Auto) 100 Sodium 136 L Potassium 4.0 Chloride 101 Carbon Dioxide 26 BUN 23 H Creatinine 0.72 Estimated GFR > 60 BUN/Creatinine Ratio 31.9 H Glucose 110 Lactate 1.1 Calcium 9.6 Magnesium Total Bilirubin 0.3 AST 26 ALT 20 Alkaline Phosphatase 102 Total Creatine Kinase 74 Troponin I < 0.012 Total Protein 7.9 Albumin 4.5 Globulin 3.4 Albumin/Globulin Ratio 1.3 Procalcitonin 0.055 Urine Color Yellow Urine Appearance Clear Urine pH 7.5 Ur Specific [place] 1.010 Urine Protein Negative Urine Glucose (UA) Negative Urine Ketones Negative Urine Occult Blood Negative Urine Nitrate Negative Urine Bilirubin Negative Urine Urobilinogen 0.2 Ur Leukocyte Esterase Negative Urine RBC None seen Urine WBC 0-1/hpf Ur Squamous Epith Cells None seen Urine Bacteria None seen Ur Culture Indicated? Cult not indicated Vol Urine Centrifuged 10ml (spun) Nasal Screen MRSA (PCR) Not detected 12/21/23 03:18 WBC 9.8 RBC 3.57 L Hgb 11.2 L Hct 33.2 L MCV 93.0 MCH 31.4 MCHC 33.8 RDW 16.9 H Plt Count 370 Neut % (Auto) 93.2 H Lymph % (Auto) 5.1 L [place] % (Auto) 1.3 L Eos % (Auto) 0.0 L Baso % (Auto) 0.4 Neut # (Auto) 9100 H Lymph # (Auto) 500 L [place] # (Auto) 100 Eos # (Auto) 0 Baso # (Auto) 0 Sodium 136 L Potassium 4.9 Chloride 103 Carbon Dioxide 25 BUN 21 H Creatinine 0.72 Estimated GFR > 60 BUN/Creatinine Ratio 29.2 H Glucose 158 H Lactate Calcium 9.9 Magnesium 2.0 Total Bilirubin 0.5 AST 28 ALT 57 H Alkaline Phosphatase 101 Total Creatine Kinase Troponin I Total Protein 7.5 Albumin 4.2 Globulin 3.3 Albumin/Globulin Ratio 1.3 Procalcitonin Urine Color Urine Appearance Urine pH Ur Specific [place] Urine Protein Urine Glucose (UA) Urine Ketones Urine Occult Blood Urine Nitrate Urine Bilirubin Urine Urobilinogen Ur Leukocyte Esterase Urine RBC Urine WBC Ur Squamous Epith Cells Urine Bacteria Ur Culture Indicated? Vol Urine Centrifuged Nasal Screen MRSA (PCR) Assessment & Plan Assessment & Plan narrative: 73 years old male with a past medical history of multiple squamous cell carcinoma status post glossectomy with partial mandibulectomy and scapular free flap reconstruction and right neck dissection by Dr. Theodore Nino at [facility] with subsequent tracheostomy and removal was brought to the emergency room for significant edema of the reconstructed tongue that was progressive. Denies any fever episodes but did have difficulty with breathing. Denies any bloody diplopia. No trauma. Denies any chest pain nausea vomiting. ENT was consulted urgently for possible airway obstruction and subsequently initiated on IV Decadron/IV Zosyn while in the emergency room. Patient underwent tracheotomy with #4 cuffed noninfected tracheostomy tube placement. Airway was secured and patient was admitted to the ICU pending transfer to [facility]. 1. Airflow obstruction due to significant edema of scapular free flap reconstruction. Unclear on the cause and patient underwent emergent tracheotomy with the tracheostomy placement. Received IV Decadron/IV Zosyn in the emergency room. Will continue IV Zosyn for now, oxygen supplementation nebulizers while monitoring closely. Patient is n.p.o. and has a chronic G-tube in place. Medically medications but will hold the tube feeds as well in preparation for potential procedures that may be needed 2. Hypothyroidism resume the home levothyroxine 3 anxiety. Lorazepam as needed 4 depression resume the home Cymbalta 5 DVT prophylaxis will be with SCDs Code status: Full Patient is being admitted under observation status pending transfer to [facility] for higher level of care Patient was evaluated with the help of a video communication device. Location of the patient is [facility] in [facility] and location of the provider is remote telemetry site with P21 Time-Based Coding :: [TOTAL MINUTES] spent with patient and on the chart (including review of chart, obtaining history, exam, reviewing outside data, placing orders, documenting exam and treatment plan, and counseling patient) on [DATE]. Quality VTE Deep Vein Thrombosis/Pulmonary Embolism Present on Admission: No
--- NOTE | 2023-12-21 06:12 | P.DS_ITS ---
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 Theodore Nino at [facility] with subsequent tracheostomy and removal was brought to the emergency room for significant edema of the reconstructed tongue that was progressive. Denies any fever episodes but did have difficulty with breathing. Denies any bloody diplopia. No trauma. Denies any chest pain nausea vomiting. ENT was consulted urgently for possible airway obstruction and subsequently initiated on IV Decadron/IV Zosyn while in the emergency room. Patient underwent tracheotomy with #4 cuffed noninfected tracheostomy tube placement. Airway was secured and patient was admitted to the ICU pending transfer to [facility]. 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 Theodore Nino at [facility] with subsequent tracheostomy and removal was brought to the emergency room for significant edema of the reconstructed tongue that was progressive. Denies any fever episodes but did have difficulty with breathing. Denies any bloody diplopia. No trauma. Denies any chest pain nausea vomiting. ENT was consulted urgently for possible airway obstruction and subsequently initiated on IV Decadron/IV Zosyn while in the emergency room. Patient underwent tracheotomy with #4 cuffed noninfected tracheostomy tube placement. Airway was secured and patient was admitted to the ICU pending transfer to [facility]. 1. Airflow obstruction due to significant edema of scapular free flap reconstruction. Unclear on the cause and patient underwent emergent tracheotomy with the tracheostomy placement. Received IV Decadron/IV Zosyn in the emergency room. IV Zosyn continued for now with oxygen supplementation nebulizers while monitoring closely. Patient is n.p.o. and has a chronic G-tube in place. Medically medications but will hold the tube feeds as well in preparation for potential procedures that may be needed 2. Hypothyroidism resumed the home levothyroxine 3 anxiety. Lorazepam as needed 4 depression resume the home Cymbalta 5 DVT prophylaxis will be with SCDs Exam Vital Signs (past 8 hours): - 12/20/23 22:21 12/20/23 22:30 12/20/23 22:31 Temperature Pulse Rate 95 H Respiratory Rate Blood Pressure Pulse Oximetry 97 Oxygen Delivery Method Room Air Room Air Room Air Oxygen Flow Rate 0 Fraction of Inspired Oxygen 21 12/20/23 22:31 12/21/23 00:00 12/21/23 00:00 Temperature 97.7 F Pulse Rate 95 H 93 H Respiratory Rate 18 16 Blood Pressure 146/83 H Pulse Oximetry 97 96 Oxygen Delivery Method Room Air Oxygen Flow Rate 0 0 Fraction of Inspired Oxygen 21 12/21/23 04:00 12/21/23 04:00 Temperature 96.5 F L Pulse Rate 103 H Respiratory Rate 22 Blood Pressure 128/84 Pulse Oximetry 97 Oxygen Delivery Method Oxygen Flow Rate 0 Fraction of Inspired Oxygen Fraction of Inspired Oxygen 21 SaO2/FiO2 Ratio 461 Oxygen Delivery Method Room Air Oxygen Flow Rate 0 Narrative Exam Narrative: Patient is nonverbal but able to communicate with return medications Tracheostomy in place with no active bleeding Air entry decreased at the base Objective Labs 12/21/23 03:18 12/21/23 03:18 Labs: Laboratory Results - last 24 hr 12/20/23 12/20/23 12/20/23 16:20 20:39 21:33 WBC 11.2 H RBC 3.61 L Hgb 11.1 L Hct 33.6 L MCV 93.1 MCH 30.8 MCHC 33.1 RDW 16.8 H Plt Count 359 Neut % (Auto) 84.7 H Lymph % (Auto) 7.2 L [place] % (Auto) 6.7 Eos % (Auto) 0.8 L Baso % (Auto) 0.6 Neut # (Auto) 9400 H Lymph # (Auto) 800 L [place] # (Auto) 700 Eos # (Auto) 100 Baso # (Auto) 100 Sodium 136 L Potassium 4.0 Chloride 101 Carbon Dioxide 26 BUN 23 H Creatinine 0.72 Estimated GFR > 60 BUN/Creatinine Ratio 31.9 H Glucose 110 Lactate 1.1 Calcium 9.6 Magnesium Total Bilirubin 0.3 AST 26 ALT 20 Alkaline Phosphatase 102 Total Creatine Kinase 74 Troponin I < 0.012 Total Protein 7.9 Albumin 4.5 Globulin 3.4 Albumin/Globulin Ratio 1.3 Procalcitonin 0.055 Urine Color Yellow Urine Appearance Clear Urine pH 7.5 Ur Specific [place] 1.010 Urine Protein Negative Urine Glucose (UA) Negative Urine Ketones Negative Urine Occult Blood Negative Urine Nitrate Negative Urine Bilirubin Negative Urine Urobilinogen 0.2 Ur Leukocyte Esterase Negative Urine RBC None seen Urine WBC 0-1/hpf Ur Squamous Epith Cells None seen Urine Bacteria None seen Ur Culture Indicated? Cult not indicated Vol Urine Centrifuged 10ml (spun) Nasal Screen MRSA (PCR) Not detected 12/21/23 03:18 WBC 9.8 RBC 3.57 L Hgb 11.2 L Hct 33.2 L MCV 93.0 MCH 31.4 MCHC 33.8 RDW 16.9 H Plt Count 370 Neut % (Auto) 93.2 H Lymph % (Auto) 5.1 L [place] % (Auto) 1.3 L Eos % (Auto) 0.0 L Baso % (Auto) 0.4 Neut # (Auto) 9100 H Lymph # (Auto) 500 L [place] # (Auto) 100 Eos # (Auto) 0 Baso # (Auto) 0 Sodium 136 L Potassium 4.9 Chloride 103 Carbon Dioxide 25 BUN 21 H Creatinine 0.72 Estimated GFR > 60 BUN/Creatinine Ratio 29.2 H Glucose 158 H Lactate Calcium 9.9 Magnesium 2.0 Total Bilirubin 0.5 AST 28 ALT 57 H Alkaline Phosphatase 101 Total Creatine Kinase Troponin I Total Protein 7.5 Albumin 4.2 Globulin 3.3 Albumin/Globulin Ratio 1.3 Procalcitonin Urine Color Urine Appearance Urine pH Ur Specific [place] Urine Protein Urine Glucose (UA) Urine Ketones Urine Occult Blood Urine Nitrate Urine Bilirubin Urine Urobilinogen Ur Leukocyte Esterase Urine RBC Urine WBC Ur Squamous Epith Cells Urine Bacteria Ur Culture Indicated? Vol Urine Centrifuged Nasal Screen MRSA (PCR) [facility] Medical History Anxiety Depression BPH (benign prostatic hyperplasia) 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) Colon cancer (2018) Hypothyroidism Kidney stone (~10/10/21) Kidney stones HLD (hyperlipidemia) HTN (hypertension) Lung cancer (2019) MARVIN (obstructive sleep apnea) Hearing impaired Neuropathy Spinal stenosis CAD (coronary artery disease) Surgical History History of lumbar spinal fusion (10/16/21) History of colon resection (2018) Hx of laminectomy Hx of laminectomy Hx of tonsillectomy Hx of lithotripsy H/O vasectomy Hx of appendectomy (2016) S/P CABG x 5 (2006) History of lobectomy of lung (2019) Hx of laminectomy (2007) History of lumbar spinal fusion Social History household members: significant other Smoking Status: Never smoker alcohol intake: former Discharge Plan Discharge Plan Patient Disposition: [facility] Other facility: [facility] Under care of provider: Discharge orders & Medications Prescriptions: No Action levothyroxine 112 mcg Tablet 112 mcg PO DAILY acetaminophen 325 mg Tablet 650 mg PO Q6H PRN (Reason: Fever/Mild Pain (1-3)) Qty: 60 0RF lorazepam [Lorazepam Intensol] 2 mg/mL concentrate 2 mg PO TID PRN (Reason: Anxiety) duloxetine 60 mg capsule,delayed release(/EC) 60 mg PO DAILY Follow up/Referrals: Bobby Blake DO [Primary Care Provider] - Discharge Data Primary Care Provider: Bobby Blake Quality VTE Deep Vein Thrombosis/Pulmonary Embolism Present on Admission: No
--- NOTE | 2023-12-21 06:34 | PC.NURSE ---
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, steady ambulation to bed, A&Ox4, using pen and paper to communicate, pt states he's hungry and that his breathing feels better with new trach, RT in to suction and evaluate trach, no drainage from site, coughing up small amts of blood tinged thin secretions, O2 sats >92% on RA, scattered rhonchi in upper lobes, pt using yanker to suction his mouth, strong cough, denies pain, peg tube clamped, flushes easily, pt requested meds for sleep and anxiety, x1 dose ativan given with mod effect, voiding via urinal at bedside, call marin within reach, bed alarm and pt reminded to call before getting up on his own. -pt to transfer to [facility] in am
[2023-12-21] MEDS: LORazepam 2 MG/ML INJ 1 MG IV (07:52)
[2023-12-21 07:57] VITALS: BP 141/72; TEMP 36.7
[2023-12-21 08:00] VITALS: PULSE 100; RESP 15; O2SAT 97
[2023-12-21] MEDS: LEVOTHYROXINE 112 MCG TABLET PO (08:04)
[2023-12-21] MEDS: DULOXETINE 30 MG CAPSULE 60 MG PO (08:04)
--- NOTE | 2023-12-21 10:22 | PC.NURSE ---
Addendum entered by Nadya Zarate R.N. 12/21/23 10:33: Next of kin Aishwarya (sister) updated on transfer per pt request. Original Note: Transfer Note Patient transferred to [facility] via ambulance at 0950. Pt SBA to stretcher, alert and oriented x4. SpO2 96% RA. Strong cough, using oral suction independently. Ativan given for pt report of anxiety, reports effective. Morning meds administered via PEG tube. Report called and given to Will RN, all questions answered. All pt belongings with pt including shoes and clothing.
== END 2023-12-21 09:50 | disposition short-term general hospital (02) | DRG 4 ==
LOC: ED 16:07 → AC 17:39 → ICU 20:18
PROVIDERS: Internal Medicine; Admitting Provider Otolaryngology; Emergency Provider Emergency Medicine; PCP Family Medicine; Referring Provider Emergency Medicine; Visit Provider Otolaryngology
PROC: 0CJS8ZZ Inspection of Larynx, Via Natural or Artificial Opening Endoscopic (ICD-10-PCS; principal; 2023-12-20 18:00)
DX: J95.89 Other postprocedural complications and disorders of respiratory system, not elsewhere classified (principal); J98.8 Other specified respiratory disorders; R60.0 Localized edema; E03.9 Hypothyroidism, unspecified; F41.9 Anxiety disorder, unspecified; I20.9 Angina pectoris, unspecified; F32.A Depression, unspecified; Z85.828 Personal history of other malignant neoplasm of skin; Z90.49 Acquired absence of other specified parts of digestive tract; Z98.890 Other specified postprocedural states
CPT/HCPCS: 36415; 70360; 70491; 80053; 81001; 82550; 83605; 83735; 84145; 84484; 85025; 87040; 87797; 94640; 94799; 96361; 96365; 96368; 99284; 99285; J1100; J2060; J2250; J2543; J2704

== ENCOUNTER 2024-08-14 17:41 | Emergency (ER) | payer MEDICARE, SELFPAY ==
[2023-12-20 17:55] VITALS: BMI 22.6
[2024-08-14 18:29] VITALS: BP 147/80; PULSE 69; RESP 18; TEMP 36.6; O2SAT 99; BMI 23.1
== END 2024-08-14 21:10 | disposition left against medical advice (07) ==
PROVIDERS: Emergency Provider Emergency Medicine; Family Provider Family Medicine; PCP Family Medicine
DX: Z53.21 Procedure and treatment not carried out due to patient leaving prior to being seen by health care provider (principal)
CPT/HCPCS: 99281

== ENCOUNTER → 2024-09-19 09:43 | Outpatient (CLI) | payer MEDICARE, SELFPAY ==
[2023-12-20 17:55] VITALS: BMI 22.6
--- NOTE | 2024-09-19 14:23 | ST.SWALLOW ---
Addendum entered and electronically signed by Vonnie Burroughs 09/19/24 14:33: Background information states pt receiving teletherapy for ST. This statement is in error. Pt received ST in person in [place] during past winter. Original Note: Visit Care Team Role Provider Type Adi Nino MD Other Providers Non-Staff Specialty: Otolaryngology (ENT) Address: [address] [place] [address], [address], [place], [address] Email: Bobby Blake DO Family Provider Non-Staff Primary Care Provider Referring Provider Specialty: Family Practice Address: [address] [place] [address], [id number] Email: Attending Provider Specialty: Address: Phone: Fax: Email: ST Modified Barium Swallow Study SHANK SCOURER Modified Barium Swallow Study Start: 09/19/24 13:24 Freq: Status: Active Protocol: Document 09/19/24 13:24 LNK (Rec: 09/19/24 14:23 LNK Desktop) Modified Barium Swallow Study Total Time Visit Start Time 09:00 Visit Stop Time 09:45 Total Visit Minutes 45 Referral Referring Physician PALMA Ayala Setting Setting Outpatient Care Patient Information Identification Type Name,Date of Patient History Pt is a 74 year old male seen this date for a Modified Barium Swallow Study at the referral of PALMA Ayala. 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 On November 01, 2023 he underwent glossectomy and removal of the right side of mandible resection with prosthetic metal plate. Pt was recently hospitalized secondary to infection of anterior neck area. He reports he has chronic pain in his neck that is a 9/10 and takes pain medications. He had a PEG tube placed in October 2023 and has lost about 20 pounds. He reports difficulties with secretions and utilizes a patch to assist with secretions, however states it dries him up too much. Pt reports he had aspiration PNA for the past 3 months and was told it's d/t him aspirating his secretions while sleeping laying down at night. He reports he now sleeps sitting up and cleans his mouth consistently and thoroughly. Pt receives ST via teletherapy for speech and swallowing. 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 He relies on verbal speech augmented by writing or use of his phone to text. Pt lives in [place] during the winter and saw a speech therapist this last winter at the [facility]. He states he was working on his speech and swallow by taking small sips of water. He reports he has not been taking sips of water since moving back to [place]. Subjective pt was accompanied by his , who was present for the Observations MBSS procedure. Suction was available to the pt as needed. Pt was seated in the flouroscopy chair with directions and procedures explained for him. He indicated he understood and agreed to proceed. Patient Positioning Position View Lat-A/P Imaging Lateral View Textures Administered Trials Presented Thin Liquid via Spoon (IDDSI 0) Barium Tablet No The IDDSI Framework Protocol: IDDSI.1 Oral Impairment Source: The Modified Barium Swallow Impairment Profile (MBSImP??) Lip Closure No labial escape Tongue Control Cohesive bolus between tongue to palatal seal During Bolus Hold Bolus Transport/ Minimal to no tongue motion Lingual Motion Oral Residue Residue collection on oral structures Location Floor of mouth Initiation of No visible initiation at any location Pharyngeal Swallow Additional Oral *Post surgical changes and mandibular prosthesis Impairment observed. Observations *Reduced jaw mobility impacting oral opening *Adequate labial ROM and strength. *No movement of tongue. Pt reports he does have a small part of the back of his tongue *Dentition natural and in good hygiene *Good bolus formation, control and AP transition. *Velopharyngeal closure was WNL. *Restricted head movement secondary to residual effects of radiation treatment on right side Pharyngeal Impairment Source: The Modified Barium Swallow Impairment Profile (MBSImP??) Soft Palate No bolus between soft palate & pharyngeal wall Elevation Laryngeal Elevation Comp.sup.move.thyroid cart.w/comp.approx.arytenoids to epiglot petiole Anterior Hyoid No anterior movement Excursion Epiglottic Movement No inversion Laryngeal Vestibular None; wide column air/contrast in laryngeal vestibule Closure Pharyngeal Stripping Absent Wave Pharyngoesophageal Minimal distension/minimal duration; marked obstruction Segment Opening of flow Tongue Base Wide column of contrast/air betwn tongue base & post. Retraction pharyngeal wall Pharyngeal Residue Collection of residue within/on pharyngeal structures Location Diffuse (>3 areas) Additional Only trials of thin liquids attempted in < teaspoons Pharyngeal full amounts. No semi solid or solid trials attempted Impairment due to high aspiration risk Observations *No hyolaryngeal elevation or movement with no epiglottic inversion observed *Laryngeal penetration: Penetration/Aspiration Scale ( PAS 5): penetrates larynx, contacts folds, visible laryngeal residue *Throat clear in response to penetration effective in clearing larynx; multiple throat clears needed *No aspiration observed with small teaspoons full trials. *Minimal extension and duration of UES opening. Multiple swallow attempts to clear bolus to esophagus *Diffuse pharyngeal pooling of contrast observed *Trial head turn to left and chin tuck strategies not effective in protecting airway A/P View The IDDSI Framework Protocol: IDDSI.1 A/P View Observations Additional A-P No AP trial attempted due to pt anxiety and c/o Observations significant pain Clinical Impressions Dysphagia Type Oral,Pharyngeal Findings *Severe oropharyngeal dysphagia with high silent aspiration risk. *Please review the above oral and laryngeal observation summaries for detailed information *Discussed [place] Free Water Protocol with pt and his using small ice chips. Discussed the need for oral cleaning prior to ingesting ice chip/water Rehabilitation Poor Potential Patient Appropriate No: Aspiration risk is high for Therapy Recommendations Diet Diet Order NPO Medication Not Recommended by Mouth Recommendation Treatment Plan Additional Outpatient therapy may be indicated for improving Recommended speech intelligibility Referrals
== END ==
LOC: RAD 09:44
PROVIDERS: Family Provider Family Medicine; PCP Family Medicine; Referring Provider Family Medicine
DX: C02.9 Malignant neoplasm of tongue, unspecified (principal); E43 Unspecified severe protein-calorie malnutrition; R13.19 Other dysphagia
CPT/HCPCS: 74230; 92611

== ENCOUNTER 2024-09-25 13:45 | Outpatient (RCR) | payer MEDICARE, SELFPAY ==
[2023-12-20 17:55] VITALS: BMI 22.6
--- NOTE | 2024-08-11 14:24 | ST.OPIE ---
Visit Care Team Role Provider Type Bobby Blake DO Family Provider Non-Staff Primary Care Provider Specialty: Family Practice Address: 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 He arrived to therapy alone and reports he lives alone, however his sister lives on the same property and assists him with whatever he needs. He was able to communicate verbally, however appeared about 30% intelligible and benefited from writing information down and utilizing keyboard. He also provided print outs of medical history timeline and medications. He was first diagnosed with colon cancer in 2018 and then tongue and lung cancer in 2019. 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 Tongue cancer returned in April 2022 and April 2023. On October he had his tongue and jaw removed. He also has a lump on his upper chest that he states he has had 7 biopsies and has not concluded what it is yet. He reports he has pain in his neck that is a 9/10 and takes pain medications. He had a PEG tube placed in October 2023 and has lost about 20 pounds. He reports difficulties with secretions and utilizes a patch to assist with secretions, however states it dries him up too much. He reports he had aspiration PNA for the past 3 months and was told it's d/t him aspirating his secretions while sleeping laying down at night. He reports he now sleeps sitting up and cleans his mouth consistently and thoroughly. He reports he lives in [place] during the winter and saw a speech therapist this last winter at the [facility]. He states he was working on his speech and swallow by taking small sips of water. He reports he has not been taking sips of water since moving back to [place] for this season and takes in everything through his tube. He reports his goal for therapy is to talk more clearly. Hearing Hearing Level Normal Previous Therapy Previous Speech- Yes Language Therapy History of Therapy Pt saw a speech language pathologist at the [facility] after his tongue and jaw removal surgery last October 2023. Subjective Patient Report Pt reports he has a lot of pain in his neck and would like to be able to reduce that. He reports he has most difficulties communicating on the phone and has his sister do most of that for him. He stated he is not interested in a tablet for communicating because he can just use his phone. Pt may benefit from education on AAC options, specifically options for his phone to increase his intelligibility to communicate wants/needs especially on the phone. Assessment Oral Motor Yes Examination Completed Results Oral motor exam revealed reduced jaw mobility impacting oral cavity opening, adequate labial ROM and strength. No movement of tongue. Pt reports he does have a small part of the back of his tongue still. Pt with natural dentition, good condition. 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 He is about 30-50% intelligible and is aware of speaking strategies he needs to utilize, such as slowing down when he communicates and over articulating, especially with words starting with /l, g , j, t/ d/t reporting most difficulties producing these sounds. ST is warranted in order to practice speaking strategies in a structured setting, such as slow rate and over articulation, in order to improve intelligibility. Pt may also benefit from education and practice utilizing AAC or alternative means of communication with his phone. Cognitive Communication Deficits Self-awareness of Predictive awareness (able to predict problem; impact Cognitive- of impairments) Communication Deficits Prognosis Prognosis Fair Plan of Care Speech-Language Yes Treatment Frequency 1x/week Duration 3 months Patient/Caregiver Described results of evaluation,Patient expressed Education understanding of evaluation,Patient expressed agreement with goals and treatment plans,Patient requires further education/training,Family/caregivers require further education/training Short Term Goals STG 1: Pt will utilize AAC independently in order to communicate wants/needs with 90% accuracy STG 2: Pt will utilize speaking strategies (e.g., slow rate, over articulation), at the conversational level 90% of the time given minimal cues. Detention Goals LTG1 Pt will improve intelligibility of speech for functional communication. Discharge Home Recommendations
--- NOTE | 2024-08-11 14:24 | ST.OPPOC ---
Physical, Occupational & Speech Therapy At [facility] Visit Care Team Role Provider Type Bobby Blake DO Family Provider Non-Staff Primary Care Provider Address: [address] [facility] [facility], [place], [address] Jorje Jim MD Attending Provider Non-Staff Referring Provider Address: [address] [place] [address], [id number] Speech Pathology Plan of Care Plan of Care Dates 08/11/24-11/11/[address] 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 He arrived to therapy alone and reports he lives alone, however his sister lives on the same property and assists him with whatever he needs. He was able to communicate verbally, however appeared about 30% intelligible and benefited from writing information down and utilizing keyboard. He also provided print outs of medical history timeline and medications. He was first diagnosed with colon cancer in 2018 and then tongue and lung cancer in 2019. 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 Tongue cancer returned in April 2022 and April 2023. On November 01, 2023 he had his tongue and jaw removed. He also has a lump on his upper chest that he states he has had 7 biopsies and has not concluded what it is yet. He reports he has pain in his neck that is a 9/ 10 and takes pain medications. He had a PEG tube placed in October 2023 and has lost about 20 pounds. He reports difficulties with secretions and utilizes a patch to assist with secretions, however states it dries him up too much. He reports he had aspiration PNA for the past 3 months and was told it's d/t him aspirating his secretions while sleeping laying down at night. He reports he now sleeps sitting up and cleans his mouth consistently and thoroughly. He reports he lives in [place] during the winter and saw a speech therapist this last winter at the [facility]. He states he was working on his speech and swallow by taking small sips of water. He reports he has not been taking sips of water since moving back to [place] for this season and takes in everything through his tube. He reports his goal for therapy is to talk more clearly. Self-awareness of Cognitive- Predictive awareness (abl Communication Deficits Short Term Goals STG 1: Pt will utilize AAC independently in order to communicate wants/needs with 90% accuracy STG 2: Pt will utilize speaking strategies (e.g. , slow rate, over articulation), at the conversational level 90% of the time given minimal cues. Steel Roller Goals LTG1 Pt will improve intelligibility of speech for functional communication. Comment: Electronically Signed by: JC Fox 08/11/24 2567 If you are in agreement with this Plan of Care, please return a signed and dated copy. I have reviewed this Plan of Care and certify that the skilled therapy services above are required to meet the patient?s needs. Physician Signature Date Printed Name and Credentials Clinical Instructor Signature Printed Name and Credentials
--- NOTE | 2024-08-11 14:25 | ST.OPPOC ---
Physical, Occupational & Speech Therapy At [facility] Visit Care Team Role Provider Type Bobby Blake DO Family Provider Non-Staff Primary Care Provider Address: [address] [facility], [place], [address] Jorje Jim MD Attending Provider Non-Staff Referring Provider Address: [address] [place] [address], [id number] Speech Pathology Plan of Care Plan of Care Dates 08/11/24-11/11/[address] 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 He arrived to therapy alone and reports he lives alone, however his sister lives on the same property and assists him with whatever he needs. He was able to communicate verbally, however appeared about 30% intelligible and benefited from writing information down and utilizing keyboard. He also provided print outs of medical history timeline and medications. He was first diagnosed with colon cancer in 2018 and then tongue and lung cancer in 2019. 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 Tongue cancer returned in April 2022 and April 2023. On November 01, 2023 he had his tongue and jaw removed. He also has a lump on his upper chest that he states he has had 7 biopsies and has not concluded what it is yet. He reports he has pain in his neck that is a 9/ 10 and takes pain medications. He had a PEG tube placed in October 2023 and has lost about 20 pounds. He reports difficulties with secretions and utilizes a patch to assist with secretions, however states it dries him up too much. He reports he had aspiration PNA for the past 3 months and was told it's d/t him aspirating his secretions while sleeping laying down at night. He reports he now sleeps sitting up and cleans his mouth consistently and thoroughly. He reports he lives in [place] during the winter and saw a speech therapist this last winter at the [facility]. He states he was working on his speech and swallow by taking small sips of water. He reports he has not been taking sips of water since moving back to [place] for this season and takes in everything through his tube. He reports his goal for therapy is to talk more clearly. Self-awareness of Cognitive- Predictive awareness (abl Communication Deficits Short Term Goals STG 1: Pt will utilize AAC independently in order to communicate wants/needs with 90% accuracy STG 2: Pt will utilize speaking strategies (e.g. , slow rate, over articulation), at the conversational level 90% of the time given minimal cues. Pusher Runner Goals LTG1 Pt will improve intelligibility of speech for functional communication. Comment: Electronically Signed by: JC Fox 08/11/24 1354 If you are in agreement with this Plan of Care, please return a signed and dated copy. I have reviewed this Plan of Care and certify that the skilled therapy services above are required to meet the patient?s needs. Physician Signature Date Printed Name and Credentials Clinical Instructor Signature Printed Name and Credentials
--- NOTE | 2024-08-17 14:31 | ST.OPTN ---
Visit Care Team Role Provider Type Bobby Blake DO Family Provider Non-Staff Primary Care Provider Address: [address] [facility], [place], [address] Jorje Jim MD Attending Provider Non-Staff Referring Provider Address: [address] [place] [address], [id number] RN CLINICAL RESEARCH Treatment Note RN CLINICAL RESEARCH Treatment Note Start: 08/17/24 14:19 Freq: Status: Active Protocol: Document 08/17/24 14:19 MA (Rec: 08/17/24 14:31 MA Desktop) Speech Pathology Treatment Note Session Time Visit Start Time 13:45 Visit Stop Time 14:15 Total Visit Minutes 30 Visit Information Visit Number 2 Plan of Care Dates 08/11/24-11/11/24 Setting Treatment Setting Outpatient Care Next Note Type Next Note Type Treatment Note General Information Patient History Pt is a 74 year old male seen this date d/t 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 He arrived to therapy alone and reports he lives alone, however his sister lives on the same property and assists him with whatever he needs. He was able to communicate verbally, however appeared about 30% intelligible and benefited from writing information down and utilizing keyboard. He also provided print outs of medical history timeline and medications. He was first diagnosed with colon cancer in 2018 and then tongue and lung cancer in 2019. 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 Tongue cancer returned in April 2022 and April 2023. On October he had his tongue and jaw removed. He also has a lump on his upper chest that he states he has had 7 biopsies and has not concluded what it is yet. He reports he has pain in his neck that is a 9/10 and takes pain medications. He had a PEG tube placed in October 2023 and has lost about 20 pounds. He reports difficulties with secretions and utilizes a patch to assist with secretions, however states it dries him up too much. He reports he had aspiration PNA for the past 3 months and was told it's d/t him aspirating his secretions while sleeping laying down at night. He reports he now sleeps sitting up and cleans his mouth consistently and thoroughly. He reports he lives in [place] during the winter and saw a speech therapist this last winter at the [facility]. He states he was working on his speech and swallow by taking small sips of water. He reports he has not been taking sips of water since moving back to [place] for this season and takes in everything through his tube. He reports his goal for therapy is to talk more clearly. Subjective Identification Type Name Observations/Patient Pt arrived to therapy on time. Presentation Objective Short Term Goals STG 1: Pt will utilize AAC independently in order to communicate wants/needs with 90% accuracy STG 2: Pt will utilize speaking strategies (e.g., slow rate, over articulation), at the conversational level 90% of the time given minimal cues. Fumigator And Sterilizer Goals LTG1 Pt will improve intelligibility of speech for functional communication. Treatment Activities Education related to AAC, specifically text to speech raymond for his phone, recommendation for MBS and additional recommendations Assessment Assessment of ST educated Pt on recommendation to talk with PCP about Improvement referral to PT for myofascial massage d/t radiation therapy causing pain and tightness in neck. Pt describes the pain like a scarf choking him around his throat. ST also recommended he speak with PCP about referral to Dr. Baxter for pain management. Pt reports he had a PET scan yesterday for the mass on his upper chest, however no results yet and have not heard back yet on biopsies. Pt reports his PEG tube fell out this last Wednesday d/t him accidently pulling it out while undressing to get in shower, which resulted him in staying overnight in the hospital. Pt reports he believes he had a MBS completed at the cancer center in [place] he was receiving speech therapy services at this past Mar/Apr. ST recommended he receive a repeat MBS at this hospital to establish new baseline. Pt agreed. He reports he has been choking on his own saliva and hasn't been utilizing patch for secretion management d/t him still recovering from PNA and wanting to be able to cough up mucous. He states once he does not have PNA he will start utilizing patch again, which will most likely improve secretions and speech. ST introduced Pt to text to speech raymond for his phone in order to type in messages and create preprogrammed messages to utilize when calling people on the phone. Pt reports he believes this will be helpful but also wants to utilize his own speech. ST encouraged him to practice speaking as much as possible outside of therapy and utilizing speaking tools he has been taught, such as slow rate and over articulation. ST also recommended he practice talking on the phone. Pt verbalized understanding.
--- NOTE | 2024-08-22 16:05 | ST.OPTN ---
Visit Care Team Role Provider Type Bobby Blake DO Family Provider Non-Staff Primary Care Provider Address: [address] [facility], [place], [address] Jorje Jim MD Attending Provider Non-Staff Referring Provider Address: [address] [place] [address], [id number] FISH WARDEN Treatment Note FISH WARDEN Treatment Note Start: 08/17/24 14:19 Freq: Status: Active Protocol: Document 08/22/24 15:58 MA (Rec: 08/22/24 16:04 MA Desktop) Speech Pathology Treatment Note Session Time Visit Start Time 13:45 Visit Stop Time 14:15 Total Visit Minutes 30 Visit Information Visit Number 3 Plan of Care Dates 08/11/24-11/11/24 Setting Treatment Setting Outpatient Care Next Note Type Next Note Type Treatment Note General Information Patient History Pt is a 74 year old male seen this date d/t 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 He arrived to therapy alone and reports he lives alone, however his sister lives on the same property and assists him with whatever he needs. He was able to communicate verbally, however appeared about 30% intelligible and benefited from writing information down and utilizing keyboard. He also provided print outs of medical history timeline and medications. He was first diagnosed with colon cancer in 2018 and then tongue and lung cancer in 2019. 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 Tongue cancer returned in April 2022 and April 2023. On October he had his tongue and jaw removed. He also has a lump on his upper chest that he states he has had 7 biopsies and has not concluded what it is yet. He reports he has pain in his neck that is a 9/10 and takes pain medications. He had a PEG tube placed in October 2023 and has lost about 20 pounds. He reports difficulties with secretions and utilizes a patch to assist with secretions, however states it dries him up too much. He reports he had aspiration PNA for the past 3 months and was told it's d/t him aspirating his secretions while sleeping laying down at night. He reports he now sleeps sitting up and cleans his mouth consistently and thoroughly. He reports he lives in [place] during the winter and saw a speech therapist this last winter at the [facility]. He states he was working on his speech and swallow by taking small sips of water. He reports he has not been taking sips of water since moving back to [place] for this season and takes in everything through his tube. He reports his goal for therapy is to talk more clearly. Subjective Identification Type Name Observations/Patient Pt arrived to therapy on time. Presentation Objective Short Term Goals STG 1: Pt will utilize AAC independently in order to communicate wants/needs with 90% accuracy STG 2: Pt will utilize speaking strategies (e.g., slow rate, over articulation), at the conversational level 90% of the time given minimal cues. Continuous Washer Operator Goals LTG1 Pt will improve intelligibility of speech for functional communication. Treatment Activities Practice utilizing speaking compensatory strategies during structured conversation and at the story level focusing on /l/ words. Assessment Patient Response to Good Treatment Rehab Potential Good Assessment of Pt reports he is having the mass on his chest, that he Improvement self diagnosed as a lipoma, on September 06 at [facility]. He states he has been practicing talking more and reports sometimes it takes him a minute to warm up talking especially if he hasn't talked a lot prior. He reports sometimes he sounds more imprecise when he first starts talking. He states he has been trying to utilize the phone more to communicate. He continues on an antibiotic for PNA and exhibited poor secretion management with anterior spillage d/t him not wanting to utilize his patch medication for excess saliva until his PNA is cured. He was able to recall speaking compensatory strategies with 100% accuracy, such as slow rate and over enunciating. He benefits from use of paper and gestures at times to communicate his message d/t reduced intelligibility. Pt reports most difficulties producing speech sounds /l/ /g/ /d/ /k/. Pt practiced reading /l/ words at the paragraph level requiring minimal cues to over enunciate /l/. Pt appeared about 25% intelligible at the paragraph level, which may be d/t slightly fast rate and about 70% accuracy at the conversational level. ST provided Pt with handout of /g/ words/phrases and recommend he practice saying these at home with slow rate and over articulation. ST also recommended Pt create a list of words he has difficulty saying (such as great) and coming up with synonyms of words that mean the same thing but have increased intelligibility. Pt verbalized understanding. Reviewed with Goals,Progress Being Made,Home Exercise Program Patient
--- NOTE | 2024-08-28 15:10 | ST.OPTN ---
Visit Care Team Role Provider Type Bobby Blake DO Family Provider Non-Staff Primary Care Provider Address: [address] [facility], [place], [address] Jorje Jim MD Attending Provider Non-Staff Referring Provider Address: [address] [place] [address], [id number] SERVICES HOST Treatment Note SERVICES HOST Treatment Note Start: 08/17/24 14:19 Freq: Status: Active Protocol: Document 08/28/24 15:06 MA (Rec: 08/28/24 15:10 MA Desktop) Speech Pathology Treatment Note Session Time Visit Start Time 14:30 Visit Stop Time 15:00 Total Visit Minutes 30 Visit Information Visit Number 4 Plan of Care Dates 08/11/24-11/11/24 Setting Treatment Setting Outpatient Care Next Note Type Next Note Type Treatment Note General Information Patient History Pt is a 74 year old male seen this date d/t 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 He arrived to therapy alone and reports he lives alone, however his sister lives on the same property and assists him with whatever he needs. He was able to communicate verbally, however appeared about 30% intelligible and benefited from writing information down and utilizing keyboard. He also provided print outs of medical history timeline and medications. He was first diagnosed with colon cancer in 2018 and then tongue and lung cancer in 2019. 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 Tongue cancer returned in April 2022 and April 2023. On October he had his tongue and jaw removed. He also has a lump on his upper chest that he states he has had 7 biopsies and has not concluded what it is yet. He reports he has pain in his neck that is a 9/10 and takes pain medications. He had a PEG tube placed in October 2023 and has lost about 20 pounds. He reports difficulties with secretions and utilizes a patch to assist with secretions, however states it dries him up too much. He reports he had aspiration PNA for the past 3 months and was told it's d/t him aspirating his secretions while sleeping laying down at night. He reports he now sleeps sitting up and cleans his mouth consistently and thoroughly. He reports he lives in [place] during the winter and saw a speech therapist this last winter at the [facility]. He states he was working on his speech and swallow by taking small sips of water. He reports he has not been taking sips of water since moving back to [place] for this season and takes in everything through his tube. He reports his goal for therapy is to talk more clearly. Subjective Identification Type Name Observations/Patient Pt arrived to therapy on time. Presentation Objective Short Term Goals STG 1: Pt will utilize AAC independently in order to communicate wants/needs with 90% accuracy STG 2: Pt will utilize speaking strategies (e.g., slow rate, over articulation), at the conversational level 90% of the time given minimal cues. It Generalist Goals LTG1 Pt will improve intelligibility of speech for functional communication. Treatment Activities Practice utilizing speaking compensatory strategies during structured conversation and at the story level focusing on /g/ words. Assessment Patient Response to Good Treatment Rehab Potential Good Assessment of Pt reports he is having the mass on his chest, that he Improvement self diagnosed as a lipoma, on September 06 at [facility]. He states he has been practicing talking more, and practiced talking on the phone however states he had to repeat himself a few times over the phone and has his sister present to assist with phone calls if needed. Pt reports he practiced /g/ words provided during last session and practiced saying them in a sentence. He states he noticed trouble saying the word younger with ST cueing Pt to break word up into two parts, slowing down and over-enunciating. Pt appeared about 60 % intelligible this date and benefits from cues to repeat and slow down and over articulate. He states he has been coughing a lot today and has a lot of mucous with anterior spillage d/t him not wanting to utilize his patch medication for excess saliva until his PNA is cured. He exhibited frequent wet coughing and wet vocal quality. He was able to recall speaking compensatory strategies with 100% accuracy, such as slow rate and over enunciating. He benefits from use of paper and gestures at times to communicate his message d/t reduced intelligibility. ST recommended Pt create a list of words he has difficulty saying and coming up with synonyms of words that mean the same thing but have increased intelligibility. ST also recommended he continue with practicing /g/ words. Pt reports he has not heard back about scheduling MBS. Pt verbalized understanding. Reviewed with Goals,Progress Being Made,Home Exercise Program Patient
--- NOTE | 2024-09-04 14:29 | ST.OPTN ---
Visit Care Team Role Provider Type Bobby Blake DO Family Provider Non-Staff Primary Care Provider Address: [address] [facility], [place], [address] Jorje Jim MD Attending Provider Non-Staff Referring Provider Address: [address] [place] [address], [address] ELECTRIC MELT OPERATOR Treatment Note ELECTRIC MELT OPERATOR Treatment Note Start: 08/17/24 14:19 Freq: Status: Active Protocol: Document 09/04/24 14:21 MA (Rec: 09/04/24 14:29 MA Desktop) Speech Pathology Treatment Note Session Time Visit Start Time 13:45 Visit Stop Time 14:15 Total Visit Minutes 30 Visit Information Visit Number 5 Plan of Care Dates 08/11/24-11/11/24 Setting Treatment Setting Outpatient Care Next Note Type Next Note Type Treatment Note General Information Patient History Pt is a 74 year old male seen this date d/t 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 He arrived to therapy alone and reports he lives alone, however his sister lives on the same property and assists him with whatever he needs. He was able to communicate verbally, however appeared about 30% intelligible and benefited from writing information down and utilizing keyboard. He also provided print outs of medical history timeline and medications. He was first diagnosed with colon cancer in 2018 and then tongue and lung cancer in 2019. 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 Tongue cancer returned in April 2022 and April 2023. On October he had his tongue and jaw removed. He also has a lump on his upper chest that he states he has had 7 biopsies and has not concluded what it is yet. He reports he has pain in his neck that is a 9/10 and takes pain medications. He had a PEG tube placed in October 2023 and has lost about 20 pounds. He reports difficulties with secretions and utilizes a patch to assist with secretions, however states it dries him up too much. He reports he had aspiration PNA for the past 3 months and was told it's d/t him aspirating his secretions while sleeping laying down at night. He reports he now sleeps sitting up and cleans his mouth consistently and thoroughly. He reports he lives in [place] during the winter and saw a speech therapist this last winter at the [facility]. He states he was working on his speech and swallow by taking small sips of water. He reports he has not been taking sips of water since moving back to [place] for this season and takes in everything through his tube. He reports his goal for therapy is to talk more clearly. Subjective Identification Type Name Observations/Patient Pt arrived to therapy on time. Presentation Objective Short Term Goals STG 1: Pt will utilize AAC independently in order to communicate wants/needs with 90% accuracy STG 2: Pt will utilize speaking strategies (e.g., slow rate, over articulation), at the conversational level 90% of the time given minimal cues. Test Driver Goals LTG1 Pt will improve intelligibility of speech for functional communication. Treatment Activities Practice utilizing speaking compensatory strategies during structured conversation Assessment Patient Response to Good Treatment Rehab Potential Good Assessment of Pt reports the mass on his chest burst over the weekend Improvement and he believes it might be a staph infection vs a lipoma. He is still attending his appointment on September 06 at [facility] to have it looked at, where he was supposed to have it removed. He is taking an antibiotic to reduce possible infection of the burst mass and also taking anti cough medication. He states he has been practicing talking more, and practiced talking on the phone however states he had to repeat himself a few times over the phone and has his sister present to assist with phone calls if needed. Pt appeared about 70% intelligible this date and benefits from cues to repeat and slow down and over articulate. He states he has been coughing a lot today and has a lot of mucous with anterior spillage d/t him not wanting to utilize his patch medication for excess saliva until his PNA is cured. He exhibited frequent wet coughing and wet vocal quality. He was able to recall speaking compensatory strategies with 100% accuracy, such as slow rate and over enunciating. He benefits from use of paper and gestures at times to communicate his message d/t reduced intelligibility. ST recommended Pt create a list of words he has difficulty saying and coming up with synonyms of words that mean the same thing but have increased intelligibility. ST also recommended he continue with practicing /g/ words. Pt reports he has not heard back about scheduling MBS. Pt verbalized understanding. Reviewed with Goals,Progress Being Made,Home Exercise Program Patient
--- NOTE | 2024-09-18 14:31 | ST.OPTN ---
Visit Care Team Role Provider Type Bobby Blake DO Family Provider Non-Staff Primary Care Provider Address: [address] [facility], [place], [address] Jorje Jim MD Attending Provider Non-Staff Referring Provider Address: [address] [place] [address], [address] CIRCULATION CREW LEADER Treatment Note CIRCULATION CREW LEADER Treatment Note Start: 08/17/24 14:19 Freq: Status: Active Protocol: Document 09/18/24 14:25 MA (Rec: 09/18/24 14:30 MA Desktop) Speech Pathology Treatment Note Session Time Visit Start Time 13:45 Visit Stop Time 14:18 Total Visit Minutes 33 Visit Information Visit Number 6 Plan of Care Dates 08/11/24-11/11/24 Setting Treatment Setting Outpatient Care Next Note Type Next Note Type Treatment Note General Information Patient History Pt is a 74 year old male seen this date d/t 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 He arrived to therapy alone and reports he lives alone, however his sister lives on the same property and assists him with whatever he needs. He was able to communicate verbally, however appeared about 30% intelligible and benefited from writing information down and utilizing keyboard. He also provided print outs of medical history timeline and medications. He was first diagnosed with colon cancer in 2018 and then tongue and lung cancer in 2019. 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 Tongue cancer returned in April 2022 and April 2023. On October he had his tongue and jaw removed. He also has a lump on his upper chest that he states he has had 7 biopsies and has not concluded what it is yet. He reports he has pain in his neck that is a 9/10 and takes pain medications. He had a PEG tube placed in October 2023 and has lost about 20 pounds. He reports difficulties with secretions and utilizes a patch to assist with secretions, however states it dries him up too much. He reports he had aspiration PNA for the past 3 months and was told it's d/t him aspirating his secretions while sleeping laying down at night. He reports he now sleeps sitting up and cleans his mouth consistently and thoroughly. He reports he lives in [place] during the winter and saw a speech therapist this last winter at the [facility]. He states he was working on his speech and swallow by taking small sips of water. He reports he has not been taking sips of water since moving back to [place] for this season and takes in everything through his tube. He reports his goal for therapy is to talk more clearly. Subjective Identification Type Name Observations/Patient Pt arrived to therapy on time. Pt brought in suction Presentation with him d/t increased secretions. Pt reports he was admitted to the hospital last Wednesday, 09/11, for 4 days d/t clavicle abscess draining with possible infection. Pt reports he had been feeling depressed and not well since his hospital stay. He has been working with palliative care. He reports he has a MBS scheduled tomorrow and see's his PCP next week and oncologist October 19. He inquired about massage with ST recommending he ask PCP about PT referral for myofascial release massage. Objective Short Term Goals STG 1: Pt will utilize AAC independently in order to communicate wants/needs with 90% accuracy STG 2: Pt will utilize speaking strategies (e.g., slow rate, over articulation), at the conversational level 90% of the time given minimal cues. Fiscal Clerk Goals LTG1 Pt will improve intelligibility of speech for functional communication. Treatment Activities Practice utilizing speaking compensatory strategies during structured conversation, education related what to expect during MBS Assessment Patient Response to Good Treatment Rehab Potential Good Assessment of Pt brought in notebook to assist with communication and Improvement needed to utilize it d/t reduced intelligibility x1. Pt appeared about 70% intelligible this date and benefits from cues to repeat and slow down and over articulate. He states he has been coughing a lot today and has a lot of mucous with anterior spillage. He utilized suction machine x5 during session. He exhibited frequent wet coughing and wet vocal quality. He was able to recall speaking compensatory strategies with 100% accuracy, such as slow rate and over enunciating. He benefits from use of paper and gestures at times to communicate his message d/t reduced intelligibility. ST educated Pt on MBS and what to expect. Pt verbalized understanding. Reviewed with Goals,Progress Being Made,Home Exercise Program Patient
--- NOTE | 2024-09-25 14:38 | ST.OPTN ---
Visit Care Team Role Provider Type Bobby Blake DO Family Provider Non-Staff Primary Care Provider Address: [address] [facility], [place], [address] Jorje Jim MD Attending Provider Non-Staff Referring Provider Address: [address] [place] [address], [id number] STEM CRUSHER Treatment Note STEM CRUSHER Treatment Note Start: 08/17/24 14:19 Freq: Status: Active Protocol: Document 09/25/24 14:24 MA (Rec: 09/25/24 14:38 MA Desktop) Speech Pathology Treatment Note Session Time Visit Start Time 13:45 Visit Stop Time 14:15 Total Visit Minutes 30 Visit Information Visit Number 7 Plan of Care Dates 08/11/24-11/11/24 Setting Treatment Setting Outpatient Care Next Note Type Next Note Type Treatment Note General Information Patient History Pt is a 74 year old male seen this date d/t 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 He arrived to therapy alone and reports he lives alone, however his sister lives on the same property and assists him with whatever he needs. He was able to communicate verbally, however appeared about 30% intelligible and benefited from writing information down and utilizing keyboard. He also provided print outs of medical history timeline and medications. He was first diagnosed with colon cancer in 2018 and then tongue and lung cancer in 2019. 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 Tongue cancer returned in April 2022 and April 2023. On October he had his tongue and jaw removed. He also has a lump on his upper chest that he states he has had 7 biopsies and has not concluded what it is yet. He reports he has pain in his neck that is a 9/10 and takes pain medications. He had a PEG tube placed in October 2023 and has lost about 20 pounds. He reports difficulties with secretions and utilizes a patch to assist with secretions, however states it dries him up too much. He reports he had aspiration PNA for the past 3 months and was told it's d/t him aspirating his secretions while sleeping laying down at night. He reports he now sleeps sitting up and cleans his mouth consistently and thoroughly. He reports he lives in [place] during the winter and saw a speech therapist this last winter at the [facility]. He states he was working on his speech and swallow by taking small sips of water. He reports he has not been taking sips of water since moving back to [place] for this season and takes in everything through his tube. He reports his goal for therapy is to talk more clearly. Subjective Identification Type Name Observations/Patient Pt arrived to therapy on time. Pt reports he is not Presentation feeling well today and his pain medication, dilaudid, has been making him feel drunk. He states he will be seeing palliative care tomorrow to talk about pain meds . Objective Short Term Goals STG 1: Pt will utilize AAC independently in order to communicate wants/needs with 90% accuracy STG 2: Pt will utilize speaking strategies (e.g., slow rate, over articulation), at the conversational level 90% of the time given minimal cues. Group Home Goals LTG1 Pt will improve intelligibility of speech for functional communication. Treatment Activities Review of MBS, discussion regarding going forward with therapy Assessment Patient Response to Good Treatment Rehab Potential Good Assessment of Pt brought in notebook to assist with communication and Improvement needed to utilize it d/t reduced intelligibility x1. Pt appeared about 70% intelligible this date and benefits from cues to repeat and slow down and over articulate. He reports since his last hospital admission he has not been feeling well. He reports his pain medication has been making him feel drunk. ST reviewed MBS results from last week. Pt reports he has not consumed any water or ice chips orally d/t him stating I'm afraid. ST recommended Pt discuss with his PCP about a pain specialist referral, PT referral for myofascial release massage. Pt verbalized understanding. Pt exhibited difficulties with his excretion's/mucous. He reports he would like to put speech therapy on hold at this time and return when he is feeling better. Reviewed with Goals,Progress Being Made,Home Exercise Program Patient
--- NOTE | 2024-11-22 11:07 | ST.OPDS ---
Visit Care Team Role Provider Type Bobby Blake DO Family Provider Non-Staff Primary Care Provider Address: [address] [facility], [place], [address] Jorje Jim MD Attending Provider Non-Staff Referring Provider Address: [address] [place] [address], [id number] DATA CONVERSION ANALYST Treatment Note DATA CONVERSION ANALYST Treatment Note Start: 08/17/24 14:19 Freq: Status: Active Protocol: Document 09/25/24 14:24 MA (Rec: 09/25/24 14:38 MA Desktop) Speech Pathology Treatment Note Session Time Visit Start Time 13:45 Visit Stop Time 14:15 Total Visit Minutes 30 Visit Information Visit Number 7 Plan of Care Dates 08/11/24-11/11/24 Setting Treatment Setting Outpatient Care Next Note Type Next Note Type Treatment Note General Information Patient History Pt is a 74 year old male seen this date d/t 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 He arrived to therapy alone and reports he lives alone, however his sister lives on the same property and assists him with whatever he needs. He was able to communicate verbally, however appeared about 30% intelligible and benefited from writing information down and utilizing keyboard. He also provided print outs of medical history timeline and medications. He was first diagnosed with colon cancer in 2018 and then tongue and lung cancer in 2019. 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 Tongue cancer returned in April 2022 and April 2023. On October he had his tongue and jaw removed. He also has a lump on his upper chest that he states he has had 7 biopsies and has not concluded what it is yet. He reports he has pain in his neck that is a 9/10 and takes pain medications. He had a PEG tube placed in October 2023 and has lost about 20 pounds. He reports difficulties with secretions and utilizes a patch to assist with secretions, however states it dries him up too much. He reports he had aspiration PNA for the past 3 months and was told it's d/t him aspirating his secretions while sleeping laying down at night. He reports he now sleeps sitting up and cleans his mouth consistently and thoroughly. He reports he lives in [place] during the winter and saw a speech therapist this last winter at the [facility]. He states he was working on his speech and swallow by taking small sips of water. He reports he has not been taking sips of water since moving back to [place] for this season and takes in everything through his tube. He reports his goal for therapy is to talk more clearly. Subjective Identification Type Name Observations/Patient Pt arrived to therapy on time. Pt reports he is not Presentation feeling well today and his pain medication, dilaudid, has been making him feel drunk. He states he will be seeing palliative care tomorrow to talk about pain meds . Objective Short Term Goals STG 1: Pt will utilize AAC independently in order to communicate wants/needs with 90% accuracy STG 2: Pt will utilize speaking strategies (e.g., slow rate, over articulation), at the conversational level 90% of the time given minimal cues. [facility] Goals LTG1 Pt will improve intelligibility of speech for functional communication. Treatment Activities Review of MBS, discussion regarding going forward with therapy Assessment Patient Response to Good Treatment Rehab Potential Good Assessment of Pt brought in notebook to assist with communication and Improvement needed to utilize it d/t reduced intelligibility x1. Pt appeared about 70% intelligible this date and benefits from cues to repeat and slow down and over articulate. He reports since his last hospital admission he has not been feeling well. He reports his pain medication has been making him feel drunk. ST reviewed MBS results from last week. Pt reports he has not consumed any water or ice chips orally d/t him stating I'm afraid. ST recommended Pt discuss with his PCP about a pain specialist referral, PT referral for myofascial release massage. Pt verbalized understanding. Pt exhibited difficulties with his excretion's/mucous. He reports he would like to put speech therapy on hold at this time and return when he is feeling better. Reviewed with Goals,Progress Being Made,Home Exercise Program Patient Pt discharged from d/t Pt passing away.
== END 2024-11-23 10:48 | disposition home or self-care (01) ==
LOC: SP 13:45
PROVIDERS: Family Provider Family Medicine; PCP Family Medicine; Referring Provider Internal Medicine Medical Oncology; Visit Provider Internal Medicine Medical Oncology
DX: C02.9 Malignant neoplasm of tongue, unspecified (principal)
CPT/HCPCS: 92507; 92523